=== PATIENT | female | born 1935 | race Caucasian/White ===

== ENCOUNTER 2017-03-03 14:15 | Inpatient (IN) | payer OTHER ==
[~2017-03-03] VITALS: Ht 152.4 cm; Wt 60.6 kg
[~2017-03-03 14:15] MED LIST: ALBU1AER9 INH; ASPCH81 PO; BUPR100T8 PO; CHOL100010 PO; DOUNEB INH; HYDC25 PO; LISI20TA3 PO; PANT40TA PO; SIMV20TA2 PO
[2017-03-03] MEDS ORDERED: SODIUM CHLORIDE 0.9% 500ML 500 ML IV STA (15:04)
[2017-03-03] MEDS ORDERED: DILTIAZEM BOLUS / DRIP IV STA ×2 (15:06→18:04)
[2017-03-03] MEDS ORDERED: DILTIAZEM HCL INJ 125 MG in DEXTROSE 5% 100ML IV PRN (15:15)
[2017-03-03] MEDS ORDERED: DILTIAZEM HCL 5 MG/ML 5 ML VIAL IV ONE (15:15)
--- NOTE | 2017-03-03 15:21 | DIAGNOSTIC IMAGING REPORT ---
CHEST ONE VIEW PORTABLE CLINICAL HISTORY: Chest Pain dyspnea COMPARISON STUDY: 01/19/2011 FINDINGS: Findings of congestive heart failure radiographically. Small bilateral pleural effusions. Moderate cardiomegaly. Pulmonary vasculature is increased IMPRESSION: Congestive heart failure. Small bilateral pleural effusions. The above report was generated using voice recognition software. It may contain grammatical, syntax or spelling errors. Electronically signed by: Herminio Rizvi M.D. 03/03/2017 3:20 PM Dictated Date/Time: 03/03/2017 3:19 PM
[2017-03-03 15:22] LABS: BASO % 0.9 %; COMPLETE YES; EOS % 1.8 %; HEMATOCRIT 51.9 % (37-47); IG% 0.6 %; LYMPH % 35.5 %; LYMPH ABS # 4.07 K/uL (1.2-3.4); MEAN CELL VOLUME 95.6 fL (80-100); MEAN CORPUSCULAR HEMOGLOBIN 32.4 pg (25-34); MEAN CORPUSCULAR HGB CONC 33.9 g/dl (32-36); MEAN PLATELET VOLUME 10.4 fL (7.4-10.4); MONO % 8.5 %; NEUT % 52.7 %; PLATELET COUNT 182 K/uL (130-400); RED BLOOD COUNT 5.43 M/uL (4.2-5.4); WHITE BLOOD COUNT 11.47 K/uL (4.8-10.8)
[2017-03-03 15:29] LABS: INR 1.1 (0.9-1.1); PROTHROMBIN TIME (PATIENT) 11.7 SECONDS (9.0-12.0)
[2017-03-03 15:34] LABS: BLOOD UREA NITROGEN 20 mg/dl (7-18); BUN/CREATININE RATIO 18.4 (10-20); CALCIUM 9.7 mg/dl (8.5-10.1); CARBON DIOXIDE 28 mmol/L (21-32); CHLORIDE 103 mmol/L (98-107); GLUCOSE 132 mg/dl (70-99); POTASSIUM 4.4 mmol/L (3.5-5.1); SODIUM 138 mmol/L (136-145)
[2017-03-03 15:45] LABS: CKMB/CK RATIO 3.3 (0-3.0)
[2017-03-03] MEDS ORDERED: ASPIRIN 81 MG CHEW PO STA ×2 (16:42→16:54)
[2017-03-03] MEDS ORDERED: ALBUT/IPRATROP 3MG/0.5MG NEB 3 ML VIAL INH STA (16:53)
[2017-03-03] MEDS ORDERED: ALBUTEROL 0.083% NEBU SOLN 3 ML VIAL INH STA (17:00)
[2017-03-03] MEDS ORDERED: LORAZEPAM 2 MG/ML 1 ML VIAL ONE (17:11)
[2017-03-03 17:20] VITALS: PULSE 146; O2SAT 93
--- NOTE | 2017-03-03 17:25 | DIAGNOSTIC IMAGING REPORT ---
CHEST ONE VIEW PORTABLE CLINICAL HISTORY: Shortness of breath. Respiratory distress COMPARISON STUDY: 03/03/2017 FINDINGS: The heart remains enlarged. There is worsening congestive failure and interstitial edema. There are small bilateral pleural effusions. There are persistent right basilar airspace opacities, likely representing compressive atelectasis or focal edema.[ IMPRESSION: Slight worsening of the congestive failure and interstitial pulmonary edema. Small bilateral pleural effusions Electronically signed by: Presley Dhaliwal M.D. 03/03/2017 5:24 PM Dictated Date/Time: 03/03/2017 5:23 PM
[2017-03-03] MEDS ORDERED: OPTIRAY 320 IV PRN (17:45)
[2017-03-03] MEDS ORDERED: FUROSEMIDE 40 MG/4 ML VIAL IV STA (17:45)
--- NOTE | 2017-03-03 17:53 | DIAGNOSTIC IMAGING REPORT ---
CT ANGIOGRAPHY OF THE CHEST, PULMONARY EMBOLUS PROTOCOL CLINICAL HISTORY: Shortness of breath. Atrial fibrillation. COMPARISON STUDY: Chest radiograph March 03, 2017 and January 21, 2011. TECHNIQUE: Following IV administration of 102 mL of Optiray-320, helical axial images of the chest were obtained utilizing the pulmonary embolus protocol. Maximal intensity projections and sagittal and coronal reformats were viewed on an independent 3D workstation. IV contrast was administered without complication. A dose lowering technique was utilized adhering to the principles of ALARA. CT DOSE: 506.01 mGy.cm FINDINGS: No pulmonary emboli are identified although the segmental and subsegmental pulmonary arteries are suboptimally assessed due to respiratory motion. The heart is mildly enlarged. There is no pericardial effusion. No enlarged thoracic lymph nodes are present. Small right and trace left pleural effusions are present. Interlobular septal thickening represents pulmonary edema. There are scattered groundglass opacities which may reflect pulmonary edema as well. Lower lobe opacities favor atelectasis. There is no pneumothorax. Bony thorax and upper abdomen are unremarkable on this unenhanced exam. There is an old proximal left humeral fracture. IMPRESSION: 1. No pulmonary emboli identified although segmental and subsegmental pulmonary arteries suboptimally assessed due to respiratory motion. 2. Moderate pulmonary edema. Small right and trace left pleural effusions. 3. Lower lobe opacities suggestive of atelectasis. Right lower lobe pneumonia would be difficult to exclude but is considered less likely. 4. Mild cardiomegaly. Electronically signed by: Gregg Polo M.D. 03/03/2017 5:51 PM Dictated Date/Time: 03/03/2017 5:43 PM
[2017-03-03] MEDS ORDERED: NITROGLYCERIN OINT 2% 1GM PACKET EXT SCH (18:00)
[2017-03-03] MEDS ORDERED: ONDANSETRON INJ 2 MG/ML 2 ML VIAL IV PRN (18:15)
[2017-03-03] MEDS ORDERED: LEVALBUTEROL/IPRATROPIUM NEB INH PRN (18:15)
[2017-03-03] MEDS ORDERED: NITROGLYCERIN 0.4 MG SL PER TAB CHARGE SL PRN (18:15)
[2017-03-03] MEDS ORDERED: ALUMINUM/MAGNESIUM/SIMETH (MAALOX MAX) 30 ML UDC PO PRN (18:15)
[2017-03-03] MEDS ORDERED: ACETAMINOPHEN 325 MG TAB PO PRN (18:15)
[2017-03-03] MEDS ORDERED: MAGNESIUM HYDROXIDE SUSP 30 ML UDC PO PRN (18:15)
[2017-03-03] MEDS ORDERED: IPRATROPIUM BROMIDE NEB SOLN 0.02% 2.5 ML VIAL INH PRN (18:30)
[2017-03-03] MEDS ORDERED: LEVALBUTEROL 0.63MG/3 ML NEB INH PRN (18:30)
[2017-03-03] MEDS ORDERED: HEPARIN IV LOW DOSE NO BOLUS SCH (18:34)
[2017-03-03] MEDS ORDERED: ASPI-435 PO (18:35)
--- NOTE | 2017-03-03 18:47 | EMERGENCY ROOM VISIT NOTE ---
History Report prepared by Lacey: Daniella Knight Under the Supervision of: Dr. Marcelino Negro D.O. First contact with patient: 14:50 Chief Complaint: CARDIAC ASSESSMENT Stated Complaint: A-FIB Nursing Triage Summary: pt reports for the past couple nights she has been SOB, she has been getting up and standing in front of the fan to make herself feel better she reports today she was at her PCP and was found to be in an abnormal rhythm her PCP sent her to be seen in the ER History of Present Illness The patient is a 81 year old female who presents to the Emergency Room for a cardiac assessment. The patient states that she has been experiencing increasing shortness of breath for the past 2 days. Her symptoms are worse in the morning when she wakes up, or if she gets up in the middle of the night to go to the bathroom. Once she gets up in the morning, she stands in front of her air conditioner and eventually starts to feel better. The patient states that her shortness of breath is worsened with exertion. Pt denies headache, change in vision, fevers, chest pain, nausea, vomiting, diarrhea, pain with urination, and melena. She denies any personal history of blood clots. She takes aspirin and denies any other blood thinners. Source of History: patient Onset: 2 days Position: chest (respiratory) Quality: other (shortness of breath) Timing: intermittent Modifying Factors (Worsening): exertion Modifying Factors (Relieving): other (standing in front of AC) Associated Symptoms: No fevers, No headache, No chest pain, No nausea, No vomiting, No melena, No diarrhea, No urinary symptoms Review of Systems See HPI for pertinent positives & negatives. A total of 10 systems reviewed and were otherwise negative. Past Medical & Surgical Medical Problems: (1) Acute respiratory failure (2) CHF (congestive heart failure) (3) Depression Family History Non-pertinent due to advanced age. Social History Smoking Status: Current Every Day Smoker Marital Status: Housing Status: lives alone Occupation Status: retired Current/Historical Medications Scheduled Aspirin (Aspirin 81), 81 MG PO DAILY Allergies Coded Allergies: No Known Allergies (Unverified , 03/03/17) Physical Exam Vital Signs Date Time Temp Pulse Resp B/P (MAP) Pulse Ox O2 Delivery O2 Flow Rate FiO2 03/03/17 17:55 128 16 104/83 95 03/03/17 17:20 146 30 93 BiPAP 60 03/03/17 17:20 146 93 60 03/03/17 16:05 132 16 122/94 93 Nasal Cannula 2.0 03/03/17 15:25 93 Nasal Cannula 2.0 03/03/17 15:25 89 Room Air 03/03/17 15:23 119 18 118/77 89 Room Air 03/03/17 15:23 136 03/03/17 14:35 36.7 146 18 139/103 94 Room Air 03/03/17 14:35 96 Room Air Physical Exam GENERAL: alert, sitting up in bed, ill appearing, talking in full sentences EYE EXAM: normal conjunctiva OROPHARYNX: no exudate, no erythema, lips, buccal mucosa, and tongue normal and mucous membranes are moist NECK: supple, no nuchal rigidity, no adenopathy, non-tender LUNGS: Clear to auscultation. Normal chest wall mechanics HEART: Tachycardic and irregularly irregular, no murmurs, S1 normal and S2 normal ABDOMEN: abdomen soft, non-tender, normo-active bowel sounds, no masses, no rebound or guarding. BACK: Back is symmetrical on inspection and there is no deformity, no midline tenderness, no CVA tenderness. SKIN: no rashes and no bruising UPPER EXTREMITIES: upper extremities are grossly normal. LOWER EXTREMITIES: Faint pitting edema. NEURO EXAM: Normal sensorium, cranial nerves II-XII grossly intact, normal speech, no gross weakness of arms, no gross weakness of legs. Medical Decision & Procedures ER Provider Diagnostic Interpretation: Prehospital ECG: A-fib with RVR at 132, left axis deviation, septal and inferior Q-waves. Repeat ECG: A-fib with RVR at 108, left axis deviation, LBBB. Repeat ECG: A-fib with RVR at 134, right axis deviation, RBBB. Bedside US: No pericardial effusion. No respiratory change in the IVC, no dilation of the RV. Radiology results as stated below per my review and the radiologist's interpretation: CHEST ONE VIEW PORTABLE CLINICAL HISTORY: Chest Pain dyspnea COMPARISON STUDY: 01/19/2011 FINDINGS: Findings of congestive heart failure radiographically. Small bilateral pleural effusions. Moderate cardiomegaly. Pulmonary vasculature is increased IMPRESSION: Congestive heart failure. Small bilateral pleural effusions. The above report was generated using voice recognition software. It may contain grammatical, syntax or spelling errors. Electronically signed by: Herminio Rizvi M.D. 03/03/2017 3:20 PM Dictated Date/Time: 03/03/2017 3:[address] ANGIOGRAPHY OF THE CHEST, PULMONARY EMBOLUS PROTOCOL CLINICAL HISTORY: Shortness of breath. Atrial fibrillation. COMPARISON STUDY: Chest radiograph March 03, 2017 and January 21, 2011. TECHNIQUE: Following IV administration of 102 mL of Optiray-320, helical axial images of the chest were obtained utilizing the pulmonary embolus protocol. Maximal intensity projections and sagittal and coronal reformats were viewed on an independent 3D workstation. IV contrast was administered without complication. A dose lowering technique was utilized adhering to the principles of ALARA. CT DOSE: 506.01 mGy.cm FINDINGS: No pulmonary emboli are identified although the segmental and subsegmental pulmonary arteries are suboptimally assessed due to respiratory motion. The heart is mildly enlarged. There is no pericardial effusion. No enlarged thoracic lymph nodes are present. Small right and trace left pleural effusions are present. Interlobular septal thickening represents pulmonary edema. There are scattered groundglass opacities which may reflect pulmonary edema as well. Lower lobe opacities favor atelectasis. There is no pneumothorax. Bony thorax and upper abdomen are unremarkable on this unenhanced exam. There is an old proximal left humeral fracture. IMPRESSION: 1. No pulmonary emboli identified although segmental and subsegmental pulmonary arteries suboptimally assessed due to respiratory motion. 2. Moderate pulmonary edema. Small right and trace left pleural effusions. 3. Lower lobe opacities suggestive of atelectasis. Right lower lobe pneumonia would be difficult to exclude but is considered less likely. 4. Mild cardiomegaly. Electronically signed by: Gregg Polo M.D. 03/03/2017 5:51 PM Dictated Date/Time: 03/03/2017 5:43 PM CHEST ONE VIEW PORTABLE CLINICAL HISTORY: Shortness of breath. Respiratory distress COMPARISON STUDY: 03/03/2017 FINDINGS: The heart remains enlarged. There is worsening congestive failure and interstitial edema. There are small bilateral pleural effusions. There are persistent right basilar airspace opacities, likely representing compressive atelectasis or focal edema.[ IMPRESSION: Slight worsening of the congestive failure and interstitial pulmonary edema. Small bilateral pleural effusions Electronically signed by: Presley Dhaliwal M.D. 03/03/2017 5:24 PM Dictated Date/Time: 03/03/2017 5:23 PM Laboratory Results 03/03/17 14:37 Red Blood Count 5.43, Mean Corpuscular Volume 95.6, Mean Corpuscular Hemoglobin 32.4, Mean Corpuscular Hemoglobin Concent 33.9, Mean Platelet Volume 10.4, Neutrophils (%) (Auto) 52.7, Lymphocytes (%) (Auto) 35.5, Monocytes (%) (Auto) 8.5, Eosinophils (%) (Auto) 1.8, Basophils (%) (Auto) 0.9, Neutrophils # (Auto) 6.04, Lymphocytes # (Auto) 4.07, Monocytes # (Auto) 0.98, Eosinophils # (Auto) 0.21, Basophils # (Auto) 0.10 03/03/17 14:37 Test 03/03/17 14:37 03/03/17 15:04 03/03/17 18:04 White Blood Count 11.47 K/uL (4.8-10.8) Red Blood Count 5.43 M/uL (4.2-5.4) Hemoglobin 17.6 g/dL (12.0-16.0) Hematocrit 51.9 % (37-47) Mean Corpuscular Volume 95.6 fL (80-100) Mean Corpuscular Hemoglobin 32.4 pg (25-34) Mean Corpuscular Hemoglobin Concent 33.9 g/dl (32-36) Platelet Count 182 K/uL (130-400) Mean Platelet Volume 10.4 fL (7.4-10.4) Neutrophils (%) (Auto) 52.7 % Lymphocytes (%) (Auto) 35.5 % Monocytes (%) (Auto) 8.5 % Eosinophils (%) (Auto) 1.8 % Basophils (%) (Auto) 0.9 % Neutrophils # (Auto) 6.04 K/uL (1.4-6.5) Lymphocytes # (Auto) 4.07 K/uL (1.2-3.4) Monocytes # (Auto) 0.98 K/uL (0.11-0.59) Eosinophils # (Auto) 0.21 K/uL (0-0.5) Basophils # (Auto) 0.10 K/uL (0-0.2) RDW Standard Deviation 49.1 fL (36.4-46.3) RDW Coefficient of Variation 14.0 % (11.5-14.5) Immature Granulocyte % (Auto) 0.6 % Immature Granulocyte # (Auto) 0.07 K/uL (0.00-0.02) Prothrombin Time 11.7 SECONDS (9.0-12.0) Prothromb Time International Ratio 1.1 (0.9-1.1) Anion Gap 7.0 mmol/L (3-11) Estimated GFR () 55.3 Estimated GFR (Non- 47.7 BUN/Creatinine Ratio 18.4 (10-20) Calcium Level 9.7 mg/dl (8.5-10.1) Total Creatine Kinase 72 U/L (26-192) Creatine Kinase MB 2.4 ng/ml (0.5-3.6) Troponin I < 0.015 ng/ml (0-0.045) Thyroid Stimulating Hormone (TSH) 3.350 uIu/ml (0.300-4.500) Creatine Kinase MB Ratio (0-3.0) Laboratory results per my review. Medications Administered Medications (Trade) Dose Ordered Sig/Dilip Route Start Time Stop Time Status Last Admin Dose Admin Sodium Chloride 500 ml @ 999 mls/hr Q31M STAT IV 03/03/17 15:04 03/03/17 15:34 DC 03/03/17 15:04 999 MLS/HR Diltiazem HCl (Cardizem Inj) 10 mg TODAY@1515 ONCE IV 03/03/17 15:15 03/03/17 15:16 DC 03/03/17 15:21 10 MG Diltiazem HCl 125 mg/Dextrose 125 ml @ 0 mls/hr Q0M PRN IV 03/03/17 15:15 03/03/17 20:00 03/03/17 15:30 5 MLS/HR Aspirin (Aspirin Chew) 324 mg NOW STAT PO 03/03/17 16:42 03/03/17 16:43 DC 03/03/17 16:42 324 MG Albuterol/ Ipratropium (Duoneb) 3 ml NOW STAT INH 03/03/17 16:53 03/03/17 16:54 DC 03/03/17 16:53 3 ML Albuterol Sulfate (Ventolin 0.083% 2.5MG/3ML Neb) 2.5 mg NOW STAT INH 03/03/17 17:00 03/03/17 17:01 DC 03/03/17 17:00 2.5 MG Lorazepam (Ativan Inj) 2 mg STK-MED ONCE .ROUTE 03/03/17 17:11 03/03/17 17:12 DC 03/03/17 17:11 1 MG Furosemide (Lasix Inj) 40 mg NOW STAT IV 03/03/17 17:45 03/03/17 17:46 DC 03/03/17 17:45 40 MG ECG Indication: SOB/dyspnea Rate (beats per minute): 132 Rhythm: atrial fibrillation (with RVR) Findings: LBBB, Q waves (septal and inferior), left axis deviation Comparison ECG Date: 01/20/2011 Change: The patient is now in a-fib. ED Course ED COURSE: Vital signs were reviewed and showed tachycardic and hypertensive. The patients medical record was reviewed The above diagnostic studies were performed and reviewed. ED treatments and interventions as stated above. 1450: The patient was evaluated in room C10. A complete history and physical examination was performed. 1504: NSS 500 ml @ 999 mls/hr IV 1508: The patient's heart rate has improved. 1515: Diltiazem HCl 125 mg/Dextrose IV, Cardizem 10 mg IV 1614: I spoke with Dr. Hong. We discussed the patient's case. The patient will be evaluated by the [facility] for further management. 1637: I reassessed the patient. She walked to the bathroom and developed mid- sternal chest pain and shortness of breath. She was given aspirin. 1642: Aspirin 324 mg PO 1653: Duoneb 3 ml INH 1657: I instructed nursing again at this time. I asked for her to increase the Cardizem drip, place her on the neb treatment, and give her aspirin and she went into another room. I called the charge nurse to obtain additional help. 1700: Albuterol sulfate 2.5 mg INH 1711: Ativan 2 mg IV 1711: I reassessed the patient and put her on BiPAP. Medicine is at the bedside. She is feeling slightly better on BiPAP. 1713: At this time I performed a bedside US. Bedside US: No pericardial effusion. No respiratory change in the IVC, no dilation of the RV. 1745: Lasix 40 mg IV 1750: I updated Dr. Hong on the patient's case. 175: Upon reevaluation, the patient is feeling better. I discussed my findings with the patient and she understands and agrees with the treatment plan. Based on the patients age, coexisting illnesses, exam and lab findings the decision to treat as an inpatient was made. The patient remained stable while under my care. The patient will be evaluated for further management. 1800: Nitroglycerin 1 inch EXT Medical Decision Differential diagnoses includes but is not limited to acute coronary syndrome, myocardial infarction, pericarditis, pulmonary embolus, aortic dissection, pneumonia, pneumothorax, musculoskeletal, shingles, esophageal. Patient is a 81-year-old female who presents the ER for shortness of breath with exertion which has been present since yesterday. 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 Upon presentation she is found to be in A. fib with RVR. CBC shows a hemoglobin of 17.6 and hematocrit of 51. BMP along with LFTs and troponin were negative. TSH is negative. And are was unremarkable. Chest x- ray supports failure. Patient was placed on a Cardizem drip and bolus. Heart rate trended down to 110s. Patient was much better until she got up to go to the bathroom. At this point she started to have chest pain and shortness of breath. Repeat EKG was obtained which showed a new axis with elevation in septal leads. This was again repeated as there was a complete axis changed and I did not trust it as it was rushed. The was unchanged from previous. Repeat chest x-ray was unchanged as well. She was given a small neb treatment with her history of COPD and poor air movement. She was placed on BiPAP. She was given aspirin as well. She was also given a small dose of Ativan as she became very anxious. Following CT PE she had complete resolution of all of her symptoms. CT PE shows pleural effusions with pulmonary edema. She was given Lasix. Initially ordered nitroglycerin but held as her blood pressure trended down to low 100s. She remained on BiPAP, Cardizem drip and was admitted to internal medicine with A. fib RVR likely causing CHF and shortness of breath. She was reevaluated on multiple occasions and patient and family were updated at bedside. Medication Reconcilliation Current Medication List: was personally reviewed by me Blood Pressure Screening Patient's blood pressure: Elevated blood pressure Consults Time Called: 161 Consulting Physician: Dr. Hong Returned Call: [address] Hong. We discussed the patient's case. [facility]. Impression Primary Impression: Atrial fibrillation with rapid ventricular response Additional Impressions: CHF (congestive heart failure) Acute respiratory failure Critical Care I have personally spent 125 minutes of critical care time in the direct management of this patient. This includes bedside care, interpretation of diagnostic studies, and testing, discussion with consultants, patient, and family members, and other required patient management activities. This 125 minutes is in excess of all separately billable procedures. Scribe Attestation The scribe's documentation has been prepared under my direction and personally reviewed by me in its entirety. I confirm that the note above accurately reflects all work, treatment, procedures, and medical decision making performed by me. Departure Information Dispostion Being Evaluated By Hospitalist Patient Instructions [facility] Problem Qualifiers Additional Impressions: CHF (congestive heart failure) Congestive heart failure type: unspecified congestive heart failure type Congestive heart failure chronicity: unspecified congestive heart failure chronicity Qualified Codes: I50.9 - Heart failure, unspecified Acute respiratory failure Respiratory failure complication: unspecified whether with hypoxia or hypercapnia Qualified Codes: J96.00 - Acute respiratory failure, unspecified whether with hypoxia or hypercapnia
[2017-03-03] MEDS ORDERED: FUROSEMIDE INJ 40 MG in SYRINGE 0 ML IV SCH (21:00)
[2017-03-03] MEDS: LEVALBUTEROL 1.25MG/0.5ML NEB INH SCH (21:00)
[2017-03-03] MEDS: IPRATROPIUM BROMIDE NEB SOLN 0.02% 2.5 ML VIAL INH SCH (21:00)
[2017-03-03] MEDS ORDERED: LEVALBUTEROL/IPRATROPIUM NEB INH SCH (21:00)
[2017-03-03 21:02] LABS: ARTERIAL BLD GAS O2 SATURATION 98.3 % (90-95); ARTERIAL BLOOD GAS BASE EXCESS -1.6 mEq/L (-9-1.8); ARTERIAL BLOOD GAS HCO3 24 mmol/L (19-24); ARTERIAL BLOOD GAS PO2 117 mm/Hg (80-95); ARTERIAL BLOOD GAS pH 7.36 (7.35-7.45)
[2017-03-03 21:03] LABS: ALLEN TEST POS (POS); O2 ADMINISTRATION 60%FI
[2017-03-03] MEDS ORDERED: HEPARIN 25000 UNIT/500 ML D5W ONE (21:10)
[2017-03-03] MEDS ORDERED: FUROSEMIDE INJ 20 MG in SYRINGE 0 ML IV SCH (22:30)
[2017-03-03] MEDS ORDERED: HEPARIN 25000 UNIT/ D5W 500 ML (PHARMACY PREPARED) IV PRN ×2 (22:30)
[2017-03-03 23:48] VITALS: BP 131/95; PULSE 104; TEMP 36.6; O2SAT 93; Ht 152.4 cm; Wt 60.6 kg
[2017-03-04] VITALS (9 sets, daily range): BP systolic 82–113; BP diastolic 41–72; PULSE 53–118; TEMP 36.3–36.7; O2SAT 94–97
[2017-03-04] MEDS: DILTIAZEM HCL INJ 125 MG in DEXTROSE 5% 100ML 100 ML IV SCH ×2 (00:13→09:36)
[2017-03-04] MEDS: NITROGLYCERIN OINT 2% 1GM PACKET EXT SCH ×2 (00:19→06:25)
[2017-03-04] MEDS: METHYLPREDNISOLONE IV 40 MG in SYRINGE 0 ML IV SCH ×2 (00:19→08:34)
[2017-03-04] MEDS: LEVOFLOXACIN / D5W 750 MG in PREMIXED IN D5W 150 ML IV SCH ×2 (00:19→22:57)
[2017-03-04] MEDS: LEVALBUTEROL 1.25MG/0.5ML NEB INH SCH ×2 (02:36→06:55)
[2017-03-04] MEDS: IPRATROPIUM BROMIDE NEB SOLN 0.02% 2.5 ML VIAL INH SCH ×2 (02:36→06:55)
[2017-03-04 02:46] LABS: CKMB/CK RATIO 4.2 (0-3.0)
[2017-03-04 04:21] LABS: BASO % 0.3 %; BASO ABS # 0.03 K/uL (0-0.2); COMPLETE YES; EOS % 0.3 %; IG% 0.9 %; LYMPH % 11.7 %; LYMPH ABS # 1.02 K/uL (1.2-3.4); MEAN CELL VOLUME 94.6 fL (80-100); MEAN CORPUSCULAR HEMOGLOBIN 31.5 pg (25-34); MEAN CORPUSCULAR HGB CONC 33.3 g/dl (32-36); MEAN PLATELET VOLUME 9.4 fL (7.4-10.4); MONO % 2.9 %; NEUT % 83.9 %; PLATELET COUNT 147 K/uL (130-400); RED BLOOD COUNT 5.18 M/uL (4.2-5.4); WHITE BLOOD COUNT 8.71 K/uL (4.8-10.8)
[2017-03-04 04:34] LABS: PARTIAL THROMBOPLASTIN RATIO 1.3
[2017-03-04 04:38] LABS: BUN/CREATININE RATIO 15.8 (10-20); CALCIUM 8.9 mg/dl (8.5-10.1); CREATININE 0.9 mg/dl (0.60-1.20); MAGNESIUM 1.7 mg/dl (1.8-2.4); POTASSIUM 3.8 mmol/L (3.5-5.1)
[2017-03-04 04:41] LABS: CHOLESTEROL/HDL RATIO 2.6
[2017-03-04] MEDS ORDERED: HEPARIN IV BOLUS 4,000 UNIT in SYRINGE 0 ML IV ONE (05:00)
[2017-03-04] MEDS ORDERED: MAGNESIUM SULFATE 1GM / D5W 1 GM in PREMIXED IN D5W 100 ML IV ONE (08:15)
[2017-03-04] MEDS: FUROSEMIDE INJ 40 MG in SYRINGE 0 ML IV SCH ×2 (08:34→17:09)
[2017-03-04] MEDS: ASPIRIN 81 MG ECTAB PO SCH (09:00)
--- NOTE | 2017-03-04 09:13 | HISTORY & PHYSICAL EXAMINATION ---
DATE OF ADMISSION: 03/03/2017 CHIEF COMPLAINT: Shortness of breath. HISTORY OF PRESENT ILLNESS: This is a 81-year-old female with past medical history significant for depression, osteoporosis, osteoarthrosis, history of nonobstructive CAD, hyperlipidemia, coronary artery disease, CKD stage III, tobacco abuse, hypertension but currently medication nino taking only aspirin and lives alone and ADLs came here because of shortness of breath and found in rapid a fib. The patient says since last 2 weeks she getting short of breath and last 2 days becomes worse and some cough, no fever, no chest pain. In the nighttime, she is waking up with choking like feeling from shortness of breath and feeling of heart palpitations.Denies any fever, chills, no nausea, no vomiting, no headaches, no blurred vision, no dizziness, no abdominal pain. Normal bowel and bladder movements. Appetite is okay. In the ER, the patient went to the bathroom and suddenly became short of breath. She complained of not able to breathe, and she was placed on 100% nonrebreather mask and she was in rapid atrial fibrillation. She was taken to CAT scan that showed no PE, but showed bilateral pulmonary edema and she was placed on BiPAP. Currently heart rates are good. Controlled on Cardizem drip and oxygen saturations were fine on BiPAP and she seems to be feeling better. ALLERGIES: No known drug allergies. PAST MEDICAL HISTORY: As mentioned above. PAST SURGICAL HISTORY: Partial hysterectomy and tonsillectomy. MEDICATIONS: Currently taking aspirin 81 mg p.o. daily. FAMILY HISTORY: Significant for mother has heart disorder, hypertension and stroke. SOCIAL HISTORY: , smokes 1 pack a day for several years. No alcohol use. No drug use. REVIEW OF SYMPTOMS: As per HPI. Rest of review of systems negative. PHYSICAL EXAMINATION: GENERAL: The patient is old and frail, in respiratory distress. VITAL SIGNS: Temperature 36.7, pulse 130s, respiratory 16-18, blood pressure 122/94, oxygen currently 95% on BiPAP. HEAD, EYES, EARS, NOSE, AND THROAT: No pallor, no icterus. Pupils equal, round, and reactive to light. NECK: No JVD, no neck masses. No carotid bruits. CARDIOVASCULAR: S1, S2 heard. Tachycardia. Regular rhythm. No murmurs. RESPIRATORY SYSTEM: Initially resp distress with rapid breathing but currently on BiPAP. Breathing okay. Bilateral rhonchi with mild wheezing present. ABDOMEN: Soft, bowel sounds present. Nontender. No distention. CENTRAL NERVOUS SYSTEM: Cranial nerves II-XII grossly intact. Nonfocal. EXTREMITIES: Mild trace pedal edema, no erythema seen. LABORATORY DATA: Sodium 138, potassium 4.4, chloride 103, bicarbonate 28, BUN 20, creatinine 1.1, serum glucose 132, calcium 9.7, total creatine kinase 72. Troponin I less than 0.015. TSH 3.3, WBC 11.4, hemoglobin 7.6, hematocrit 20.9, platelets 182. PT 11.7, INR 1.1. Chest x-ray shows congestive heart failure, small bilateral pleural effusions. CT of the chest shows no PE, moderate pulmonary edema. Small right and trace left pleural effusions, right larger lobe pneumonia could be difficult to exclude, but comes less likely. Mild cardiomegaly. EKG: Shows rapid AFib with a rate of 150s, left bundle branch block seen. ASSESSMENT AND PLAN: This is a 81-year-old female who presents with acute respiratory failure and rapid atrial fibrillation. 1. Acute respiratory failure secondary to congestive heart failure from rapid atrial fibrillation and chronic obstructive pulmonary disease exacerbation. Currently doing okay on BiPAP. 2. Acute congestive heart failure. Previous echo 2012 showed grade 1 diastolic. CHF possibly from rapid atrial fibrillation. Dose of Lasix in the ER. We will continue IV Lasix 40 b.i.d. I's and O's. nitro paste. Follow echocardiogram. Cardiology consult. 3. Rapid atrial fibrillation. The patient has heart rate 150s. Currently on Cardizem drip. Will continue the Cardizem drip for now on IV heparin. Follow echocardiogram. beta chica as per cardiology. Cardiology did not start on beta chica secondary to her conduction system and respiratory disease in the past. 4. Chronic obstructive pulmonary disease exacerbation. The patient smokes everyday for several years. Bilateral rhonchi on exam. We will place on IV Solu-Medrol, IV Levaquin, nebs around the clock and p.r.n. Tobacco cessation. 5. History of nonobstructive coronary artery disease. The patient is taking only aspirin, not on any other medications. Further recommendation as per cardiology. Currently on IV heparin. 6. Chronic kidney disease stage III. We will follow renal function. 7. Hyperlipidemia, not on any medications. Follow the lipid profile. 8. History of hypertension. The patient currently is on Cardizem drip and nitro paste. We will follow the blood pressure in the hospital. 9. Deep vein thrombosis prophylaxis IV heparin. 10. Disposition. Monitor on tele floor. Expect to discharge home and follow with family doctor and cardiology. CODE STATUS LEVEL 1 FULL CODE. MTDD
--- NOTE | 2017-03-04 09:55 | Progress Note ---
Subjective Date of Service: Mar 04, 2017. Subjective Pt evaluation today including: conversation w/ patient, physical exam, lab review, review of studies, review of inpatient medication list Saw/examined the patient in room 234 she states she was at her PCP (GALEN Ruiz) - was short of breath and tachycardic in the office, found to have A. Fib with RVR and was sent over to the hospital Found to have new onset rapid A. Fib in the ER - was really short of breath and given Lasix, solu-medrol, placed on bipap This morning: now she is on 2L O2 via NC still has shortness of breath denies chest pain or palpitations States she stopped taking all medications about 8 months ago due to cost. Problem List Medical Problems: (1) Atrial fibrillation with rapid ventricular response Status: Acute Review of Systems Constitutional: No fever, No chills, No weakness Respiratory: + shortness of breath, + dyspnea on exertion, No cough, No sputum , No wheezing, No dyspnea at rest, No hemoptysis Cardiac: + orthopnea, No chest pain, No edema, No palpitations Abdomen: No pain, No nausea, No vomiting, No diarrhea Musculoskeletal: No joint pain Female : No dysuria, No urinary frequency Heme: No abnormal bleeding/bruising Medications Current Inpatient Medications Medications (Trade) Dose Ordered Sig/Dilip Route Start Time Stop Time Status Last Admin Dose Admin Ioversol (Optiray 320) 100 ml UD PRN IV 03/03/17 17:45 03/07/17 17:44 Acetaminophen (Tylenol Tab) 650 mg Q4H PRN PO 03/03/17 18:15 04/02/17 18:14 Al Hydrox/Mg Hydrox/Simethicone (Maalox Max Susp) 15 ml Q4H PRN PO 03/03/17 18:15 04/02/17 18:14 Magnesium Hydroxide (Milk Of Magnesia Susp) 30 ml Q12H PRN PO 03/03/17 18:15 04/02/17 18:14 Ondansetron HCl (Zofran Inj) 4 mg Q6H PRN IV 03/03/17 18:15 04/02/17 18:14 Nitroglycerin (Nitrostat Tab) 0.4 mg UD PRN SL 03/03/17 18:15 04/02/17 18:14 Aspirin (Ecotrin Tab) 81 mg QAM PO 03/04/17 09:00 04/03/17 08:59 03/04/17 09:00 81 MG Methylprednisolone Sodium Succinate 40 mg/Syringe 0.64 ml @ 1.5 mls/min Q8H IV 03/04/17 00:00 04/03/17 00:00 03/04/17 08:34 1.5 MLS/MIN Nitroglycerin (Nitroglycerin 2% Oint) 0.5 inch Q6 EXT 03/04/17 00:00 04/03/17 00:00 03/04/17 06:25 0.5 INCH Levofloxacin 750 mg/Prmx 150 ml @ 100 mls/hr DAILY@2200 IV 03/03/17 22:30 03/10/17 21:59 03/04/17 00:19 100 MLS/HR Ipratropium [place] (Atrovent 0.02% 0.5MG/2.5ML Neb) 0.5 mg Q2H PRN INH 03/03/17 18:30 04/02/17 18:29 Levalbuterol (Xopenex 0.63 Mg/ 3 Ml Neb) 0.63 mg Q2H PRN INH 03/03/17 18:30 04/02/17 18:29 Ipratropium [place] (Atrovent 0.02% 0.5MG/2.5ML Neb) 0.5 mg Q6R INH 03/03/17 21:00 04/02/17 20:59 03/04/17 06:55 0.5 MG Levalbuterol (Xopenex 1.25MG/ 0.5ML Neb) 1.25 mg Q6R INH 03/03/17 21:00 04/02/17 20:59 03/04/17 06:55 1.25 MG Furosemide 40 mg/ Syringe 4 ml @ 4 mls/min BID17 IV 03/04/17 09:00 04/03/17 08:59 03/04/17 08:34 4 MLS/MIN Diltiazem HCl 125 mg/Dextrose 125 ml @ 0 mls/hr Q0M IV 03/03/17 21:15 04/02/17 21:14 03/04/17 09:36 15 MLS/HR Heparin Sodium (Porcine) 87913 unit/Dextrose 500 ml @ 16 mls/hr Q24H PRN IV 03/03/17 22:30 04/02/17 22:29 Objective Vital Signs Date Time Temp Pulse Resp B/P (MAP) Pulse Ox O2 Delivery O2 Flow Rate FiO2 03/04/17 07:21 36.7 96 18 103/67 (79) 96 Nasal Cannula 3.0 03/04/17 06:55 98 16 95 Nasal Cannula 3.0 03/04/17 04:14 36.5 118 20 113/72 (86) 96 Nasal Cannula 3.0 03/04/17 04:00 Nasal Cannula 3.0 03/04/17 02:36 89 16 95 Nasal Cannula 4.0 03/03/17 23:48 36.6 104 20 131/95 93 Nasal Cannula 4.0 03/03/17 23:26 109 20 98/67 96 Nasal Cannula 4.0 03/03/17 22:00 102 20 122/90 95 Nasal Cannula 4.0 03/03/17 20:30 98 20 109/65 97 BiPAP 03/03/17 19:30 108 20 106/85 98 BiPAP 03/03/17 17:55 128 16 104/83 95 03/03/17 17:20 146 30 93 BiPAP 60 03/03/17 17:20 146 93 60 03/03/17 16:05 132 16 122/94 93 Nasal Cannula 2.0 03/03/17 15:25 93 Nasal Cannula 2.0 03/03/17 15:25 89 Room Air 03/03/17 15:23 119 18 118/77 89 Room Air 03/03/17 15:23 136 03/03/17 14:35 36.7 146 18 139/103 94 Room Air 03/03/17 14:35 96 Room Air Physical Exam General Appearance: no apparent distress, + pertinent finding (mild confusion during exam) Respiratory/Chest: chest non-tender, lungs clear, normal breath sounds, no respiratory distress, no accessory muscle use Cardiovascular: + tachycardia, + irregularly irregular Abdomen: normal bowel sounds, non tender, soft Extremities: normal inspection, no pedal edema Neurologic/Psychiatric: no motor/sensory deficits, alert, normal mood/affect Laboratory Results Last 24 Hours Test 03/03/17 14:37 03/03/17 15:04 03/03/17 20:52 03/04/17 02:11 White Blood Count 11.47 K/uL Red Blood Count 5.43 M/uL Hemoglobin 17.6 g/dL Hematocrit 51.9 % Mean Corpuscular Volume 95.6 fL Mean Corpuscular Hemoglobin 32.4 pg Mean Corpuscular Hemoglobin Concent 33.9 g/dl Platelet Count 182 K/uL Mean Platelet Volume 10.4 fL Neutrophils (%) (Auto) 52.7 % Lymphocytes (%) (Auto) 35.5 % Monocytes (%) (Auto) 8.5 % Eosinophils (%) (Auto) 1.8 % Basophils (%) (Auto) 0.9 % Neutrophils # (Auto) 6.04 K/uL Lymphocytes # (Auto) 4.07 K/uL Monocytes # (Auto) 0.98 K/uL Eosinophils # (Auto) 0.21 K/uL Basophils # (Auto) 0.10 K/uL RDW Standard Deviation 49.1 fL RDW Coefficient of Variation 14.0 % Immature Granulocyte % (Auto) 0.6 % Immature Granulocyte # (Auto) 0.07 K/uL Prothrombin Time 11.7 SECONDS Prothromb Time International Ratio 1.1 Sodium Level 138 mmol/L Potassium Level 4.4 mmol/L Chloride Level 103 mmol/L Carbon Dioxide Level 28 mmol/L Anion Gap 7.0 mmol/L Blood Urea Nitrogen 20 mg/dl Creatinine 1.10 mg/dl Estimated GFR () 55.3 Estimated GFR (Non- 47.7 BUN/Creatinine Ratio 18.4 Random Glucose 132 mg/dl Calcium Level 9.7 mg/dl Total Creatine Kinase 72 U/L 59 U/L Creatine Kinase MB 2.4 ng/ml 2.5 ng/ml Creatine Kinase MB Ratio 3.3 4.2 Troponin I < 0.015 ng/ml 0.018 ng/ml Thyroid Stimulating Hormone (TSH) 3.350 uIu/ml Arterial Blood pH 7.36 Arterial Blood Partial Pressure CO2 44 mmHg Arterial Blood Partial Pressure O2 117 mm/Hg Arterial Blood HCO3 24 mmol/L Arterial Blood Oxygen Saturation 98.3 % Arterial Blood Base Excess -1.6 mEq/L Arterial Blood Gas Delivery 60%FI Mike Test POS Test 03/04/17 04:12 03/04/17 04:44 White Blood Count 8.71 K/uL Red Blood Count 5.18 M/uL Hemoglobin 16.3 g/dL Hematocrit 49.0 % Mean Corpuscular Volume 94.6 fL Mean Corpuscular Hemoglobin 31.5 pg Mean Corpuscular Hemoglobin Concent 33.3 g/dl Platelet Count 147 K/uL Mean Platelet Volume 9.4 fL Neutrophils (%) (Auto) 83.9 % Lymphocytes (%) (Auto) 11.7 % Monocytes (%) (Auto) 2.9 % Eosinophils (%) (Auto) 0.3 % Basophils (%) (Auto) 0.3 % Neutrophils # (Auto) 7.30 K/uL Lymphocytes # (Auto) 1.02 K/uL Monocytes # (Auto) 0.25 K/uL Eosinophils # (Auto) 0.03 K/uL Basophils # (Auto) 0.03 K/uL RDW Standard Deviation 47.8 fL RDW Coefficient of Variation 13.8 % Immature Granulocyte % (Auto) 0.9 % Immature Granulocyte # (Auto) 0.08 K/uL Activated Partial Thromboplast Time 34.1 SECONDS Partial Thromboplastin Ratio 1.3 Sodium Level 140 mmol/L Potassium Level 3.8 mmol/L Chloride Level 105 mmol/L Carbon Dioxide Level 27 mmol/L Anion Gap 8.0 mmol/L Blood Urea Nitrogen 14 mg/dl Creatinine 0.90 mg/dl Est Creatinine Clear Calc Drug Dose 41.4 ml/min Estimated GFR () 70.5 Estimated GFR (Non- 60.8 BUN/Creatinine Ratio 15.8 Random Glucose 127 mg/dl Calcium Level 8.9 mg/dl Magnesium Level 1.7 mg/dl Triglycerides Level 57 mg/dl Cholesterol Level 133 mg/dl HDL Cholesterol 51 mg/dl LDL Cholesterol, Calculated 71 mg/dl VLDL Cholesterol, Calculated 11 mg/dl Cholesterol/HDL Ratio 2.6 Assessment and Plan This is a 81 year old female who lives alone, possible underlying dementia, CKD stage 3, HTN, CAD, COPD, current ongoing tobacco use; stopped all medications about 8 months prior to arrival - sent to the ER by primary care due to shortness of breath and tachycardia, found to have new onset A. Fib New Onset A. Fib with RVR patient presents with new onset A. fib with rapid ventricular response started on IV heparin and IV Cardizem continues to have A. fib, rates are improving, though still elevated in the 100s -110s consulted cardiology echo pending currently max dose on Cardizem drip; should start b-chica, aspirin wean O2 as tolerated CM consulted for medication cost and pt. 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
[2017-03-04 11:22] LABS: CKMB/CK RATIO 3.6 (0-3.0)
[2017-03-04 12:50] LABS: PARTIAL THROMBOPLASTIN RATIO 2.5
--- NOTE | 2017-03-04 13:06 | ECHOCARDIOGRAM REPORT ---
*NOTICE TO RECEIVING [employer] This information is strictly Confidential and protected under [place] law. [place] law prohibits you from making any further disclosure of this information unless further disclosure is expressly permitted by the written consent of the person to whom it pertains or is authorized by law. A general authorization for the release of medical or other information is not sufficient for this purpose. Hospital accepts no responsibility if the information is made available to any other person, INCLUDING THE PATIENT. Interpretation Summary * Name: GALI TORRES Study Date: 03/04/2017 10:54 AM BP: 113/72 mmHg * Patient Location: C.2T\S\S234\S\1 HR: 118 * : 1935 (M/d/yyyy) Gender: Female Height: 60 in * Age: 81 yrs Ethnicity: [place] Weight: 161 lb * Ordering Physician: Maik Hong * Referring Physician: Екатерина Oakes * Performed By: Brittany Doherty RDCS * * Reason For Study: A-Fib * BSA: 1.7 m2 * -- Conclusions -- * The left ventricle is normal in size. * There is moderate concentric left ventricular hypertrophy. * Septal motion is consistent with conduction abnormality. * There is mild global hypokinesis of the left ventricle. * Ejection Fraction = 45-50%. * Borderline left atrial enlargement. * There is moderate mitral regurgitation. * There is mild tricuspid regurgitation. * Right ventricular systolic pressure is elevated at 30-40mmHg. Procedure Details * A complete two-dimensional transthoracic echocardiogram was performed (2D, M-mode, Doppler and color flow Doppler). Left Ventricle * The left ventricle is normal in size. * There is moderate concentric left ventricular hypertrophy. * Ejection Fraction = 45-50%. * Septal motion is consistent with conduction abnormality. * There is mild global hypokinesis of the left ventricle. Right Ventricle * The right ventricle is normal in size and function. Atria * Borderline left atrial enlargement. * Right atrial size is normal. * No ASD detected; PFO is not assessed. Mitral Valve * The mitral valve anatomy is normal. * There is no mitral valve stenosis. * There is moderate mitral regurgitation. Tricuspid Valve * The tricuspid valve is normal. * There is no tricuspid stenosis. * There is mild tricuspid regurgitation. * Right ventricular systolic pressure is elevated at 30-40mmHg. Aortic Valve * The aortic valve is trileaflet. * Aortic valve sclerosis mild, without significant aortic valvular stenosis. * No aortic regurgitation is present. Pulmonic Valve * The pulmonic valve is not well visualized. Great Vessels * The aortic root is normal size. Pericardium/Pleural * There is no pericardial effusion. Great Vessels * The inferior vena cava is moderately dilated. MMode 2D Measurements and Calculations IVSd 1.2 cm LVIDd 4.4 cm LVIDs 3.3 cm LVPWd 1.2 cm IVS/LVPW 1.1 FS 26.2 % EDV(Teich) 89.5 ml ESV(Teich) 43.3 ml EF(Teich) 51.6 % EDV(cubed) 87.4 ml ESV(cubed) 35.1 ml EF(cubed) 59.9 % LV mass(C)d 198.2 grams LV mass(C)dI 116.4 grams/m\S\2 SV(Teich) 46.2 ml SI(Teich) 27.1 ml/m\S\2 SV(cubed) 52.3 ml SI(cubed) 30.7 ml/m\S\2 Ao root diam 2.4 cm Ao root area 4.3 cm\S\2 ACS 1.9 cm LA dimension 3.7 cm LA/Ao 1.6 LVOT diam 2.0 cm LVOT area 3.0 cm\S\2 LVAd ap4 20.1 cm\S\2 LVLd ap4 7.0 cm EDV(MOD-sp4) 48.6 ml EDV(sp4-el) 49.1 ml LVAs ap4 13.7 cm\S\2 LVLs ap4 6.1 cm ESV(MOD-sp4) 25.9 ml ESV(sp4-el) 26.2 ml EF(MOD-sp4) 46.6 % EF(sp4-el) 46.8 % LVAd ap2 12.1 cm\S\2 LVLd ap2 4.9 cm EDV(MOD-sp2) 24.6 ml EDV(sp2-el) 25.5 ml LVAs ap2 8.5 cm\S\2 LVLs ap2 4.6 cm ESV(MOD-sp2) 13.2 ml ESV(sp2-el) 13.3 ml EF(MOD-sp2) 46.4 % EF(sp2-el) 47.6 % LVLd %diff -42.06 % EDV(MOD-bp) 41.6 ml LVLs %diff -33.01 % ESV(MOD-bp) 21.4 ml EF(MOD-bp) 48.6 % SV(MOD-sp4) 22.7 ml SI(MOD-sp4) 13.3 ml/m\S\2 SV(MOD-sp2) 11.4 ml SI(MOD-sp2) 6.7 ml/m\S\2 SV(MOD-bp) 20.2 ml SI(MOD-bp) 11.9 ml/m\S\2 SV(sp4-el) 23.0 ml SI(sp4-el) 13.5 ml/m\S\2 SV(sp2-el) 12.1 ml SI(sp2-el) 7.1 ml/m\S\2 Doppler Measurements and Calculations MV E max celsa 105.7 cm/sec MV dec time 0.19 sec Ao V2 max 104.9 cm/sec Ao max PG 4.4 mmHg Ao max PG (full) 2.2 mmHg MARIS(V,A) 2.1 cm\S\2 MARIS(V,D) 2.1 cm\S\2 LV V1 max PG 2.2 mmHg LV V1 max 74.5 cm/sec MR max celsa 408.1 cm/sec MR max PG 66.7 mmHg MR mean celsa 307.1 cm/sec MR mean PG 42.6 mmHg MR VTI 118.6 cm PA V2 max 61.1 cm/sec PA max PG 1.5 mmHg PA acc slope 675.6 cm/sec\S\2 PA acc time 0.07 sec TR max celsa 233.7 cm/sec PA pr(Accel) 47.8 mmHg
[2017-03-04] MEDS ORDERED: POTASSIUM CHLORIDE 20 MEQ TABCR PO STA (13:32)
[2017-03-04] MEDS ORDERED: METOPROLOL TARTRATE 25 MG TAB PO ONE (13:32)
[2017-03-04] MEDS ORDERED: METOPROLOL TARTRATE 25 MG TAB PO SCH (18:00)
[2017-03-05] VITALS (9 sets, daily range): BP systolic 121–142; BP diastolic 67–92; PULSE 48–90; TEMP 36.3–37; O2SAT 94–98
[2017-03-05 05:10] LABS: BASO % 0.1 %; BASO ABS # 0.01 K/uL (0-0.2); COMPLETE YES; HEMATOCRIT 46.1 % (37-47); IG% 0.4 %; LYMPH % 13.2 %; LYMPH ABS # 1.77 K/uL (1.2-3.4); MEAN CELL VOLUME 94.7 fL (80-100); MEAN CORPUSCULAR HEMOGLOBIN 31.4 pg (25-34); MEAN CORPUSCULAR HGB CONC 33.2 g/dl (32-36); MEAN PLATELET VOLUME 9.5 fL (7.4-10.4); NEUT % 78.3 %; PLATELET COUNT 150 K/uL (130-400); RED BLOOD COUNT 4.87 M/uL (4.2-5.4); WHITE BLOOD COUNT 13.42 K/uL (4.8-10.8)
[2017-03-05 05:23] LABS: PARTIAL THROMBOPLASTIN RATIO 1.9
[2017-03-05 05:43] LABS: BUN/CREATININE RATIO 17.2 (10-20); CALCIUM 8.9 mg/dl (8.5-10.1); CREATININE 1.6 mg/dl (0.60-1.20); POTASSIUM 4.5 mmol/L (3.5-5.1)
[2017-03-05] MEDS: ASPIRIN 81 MG ECTAB PO SCH (08:20)
--- NOTE | 2017-03-05 08:31 | Progress Note ---
Subjective Date of Service: Mar 05, 2017. Subjective Pt evaluation today including: conversation w/ patient, physical exam, lab review, review of studies, review of inpatient medication list Saw/examined the patient in room 234 She is seated in a chair, doing okay - denies chest pain, palpitations, shortness of breath Eager to go home Problem List Medical Problems: (1) Atrial fibrillation with rapid ventricular response Status: Acute Review of Systems Constitutional: No fever, No chills Respiratory: No cough, No sputum, No wheezing, No shortness of breath, No dyspnea on exertion, No dyspnea at rest, No hemoptysis Cardiac: No chest pain, No edema, No palpitations Abdomen: No pain, No nausea, No vomiting, No diarrhea Medications Current Inpatient Medications Medications (Trade) Dose Ordered Sig/Dilip Route Start Time Stop Time Status Last Admin Dose Admin Ioversol (Optiray 320) 100 ml UD PRN IV 03/03/17 17:45 03/07/17 17:44 Acetaminophen (Tylenol Tab) 650 mg Q4H PRN PO 03/03/17 18:15 04/02/17 18:14 Al Hydrox/Mg Hydrox/Simethicone (Maalox Max Susp) 15 ml Q4H PRN PO 03/03/17 18:15 04/02/17 18:14 Magnesium Hydroxide (Milk Of Magnesia Susp) 30 ml Q12H PRN PO 03/03/17 18:15 04/02/17 18:14 Ondansetron HCl (Zofran Inj) 4 mg Q6H PRN IV 03/03/17 18:15 04/02/17 18:14 Nitroglycerin (Nitrostat Tab) 0.4 mg UD PRN SL 03/03/17 18:15 04/02/17 18:14 Aspirin (Ecotrin Tab) 81 mg QAM PO 03/04/17 09:00 04/03/17 08:59 03/05/17 08:20 81 MG Levofloxacin 750 mg/Prmx 150 ml @ 100 mls/hr DAILY@2200 IV 03/03/17 22:30 03/10/17 21:59 03/04/17 22:57 100 MLS/HR Ipratropium [place] (Atrovent 0.02% 0.5MG/2.5ML Neb) 0.5 mg Q2H PRN INH 03/03/17 18:30 04/02/17 18:29 03/05/17 04:03 0.5 MG Levalbuterol (Xopenex 0.63 Mg/ 3 Ml Neb) 0.63 mg Q2H PRN INH 03/03/17 18:30 04/02/17 18:29 03/05/17 04:03 0.63 MG Furosemide 40 mg/ Syringe 4 ml @ 4 mls/min BID17 IV 03/04/17 09:00 04/03/17 08:59 Future Hold 03/04/17 17:09 4 MLS/MIN Heparin Sodium (Porcine) 16796 unit/Dextrose 500 ml @ 16 mls/hr Q24H PRN IV 03/03/17 22:30 04/02/17 22:29 03/05/17 08:09 16 MLS/HR Prednisone (PredniSONE TAB) 40 mg DAILY PO 03/05/17 09:00 04/04/17 08:59 03/05/17 08:20 40 MG Metoprolol Tartrate (Lopressor Tab) 25 mg BID17 PO 03/05/17 09:00 04/03/17 17:59 03/05/17 08:20 25 MG Objective Vital Signs Date Time Temp Pulse Resp B/P (MAP) Pulse Ox O2 Delivery O2 Flow Rate FiO2 03/05/17 07:36 36.8 90 18 134/87 (103) 96 03/05/17 04:03 72 20 96 Nasal Cannula 2.0 03/05/17 04:00 95 Nasal Cannula 2.0 60 03/05/17 03:52 36.7 72 20 142/75 (97) 95 Nasal Cannula 2.0 03/05/17 00:00 95 Nasal Cannula 2.0 60 03/04/17 23:48 36.4 62 18 105/62 (76) 94 Nasal Cannula 2.0 03/04/17 21:00 92/52 (65) 03/04/17 20:00 Nasal Cannula 2.0 03/04/17 19:31 36.4 53 20 82/41 (55) 96 Nasal Cannula 2.0 03/04/17 16:00 Nasal Cannula 2.0 03/04/17 15:50 36.6 71 18 102/61 (75) 94 Nasal Cannula 2.0 03/04/17 12:11 Nasal Cannula 3.0 03/04/17 11:35 36.3 85 18 102/57 (72) 97 Nasal Cannula 2.0 Physical Exam General Appearance: no apparent distress Respiratory/Chest: chest non-tender, no respiratory distress, no accessory muscle use, + decreased breath sounds Cardiovascular: no edema, no murmur, + irregularly irregular Extremities: non-tender, normal inspection, no pedal edema Neurologic/Psychiatric: no motor/sensory deficits, alert, normal mood/affect Laboratory Results Last 24 Hours Test 03/04/17 10:49 03/05/17 04:58 Activated Partial Thromboplast Time 64.3 SECONDS 50.2 SECONDS Partial Thromboplastin Ratio 2.5 1.9 Total Creatine Kinase 59 U/L Creatine Kinase MB 2.1 ng/ml Creatine Kinase MB Ratio 3.6 Troponin I < 0.015 ng/ml White Blood Count 13.42 K/uL Red Blood Count 4.87 M/uL Hemoglobin 15.3 g/dL Hematocrit 46.1 % Mean Corpuscular Volume 94.7 fL Mean Corpuscular Hemoglobin 31.4 pg Mean Corpuscular Hemoglobin Concent 33.2 g/dl Platelet Count 150 K/uL Mean Platelet Volume 9.5 fL Neutrophils (%) (Auto) 78.3 % Lymphocytes (%) (Auto) 13.2 % Monocytes (%) (Auto) 8.0 % Eosinophils (%) (Auto) 0.0 % Basophils (%) (Auto) 0.1 % Neutrophils # (Auto) 10.50 K/uL Lymphocytes # (Auto) 1.77 K/uL Monocytes # (Auto) 1.08 K/uL Eosinophils # (Auto) 0.00 K/uL Basophils # (Auto) 0.01 K/uL RDW Standard Deviation 48.4 fL RDW Coefficient of Variation 14.0 % Immature Granulocyte % (Auto) 0.4 % Immature Granulocyte # (Auto) 0.06 K/uL Sodium Level 134 mmol/L Potassium Level 4.5 mmol/L Chloride Level 100 mmol/L Carbon Dioxide Level 27 mmol/L Anion Gap 7.0 mmol/L Blood Urea Nitrogen 28 mg/dl Creatinine 1.60 mg/dl Est Creatinine Clear Calc Drug Dose 23.2 ml/min Estimated GFR () 35.2 Estimated GFR (Non- 30.3 BUN/Creatinine Ratio 17.2 Random Glucose 128 mg/dl Calcium Level 8.9 mg/dl Magnesium Level 2.0 mg/dl Assessment and Plan This is a 81 year old female who lives alone, possible underlying dementia, CKD stage 3, HTN, CAD, COPD, current ongoing tobacco use; stopped all medications about 8 months prior to arrival - sent to the ER by primary care due to shortness of breath and tachycardia, found to have new onset A. Fib New Onset A. Fib with RVR 03/05 A. fib - now rate controlled Cardizem drip is off Metoprolol Tartrate 25mg BID echo shows some hypokinesis with an EF of 40-45% start Coumadin 5mg daily for now 03/04 patient presents with new onset A. fib with rapid ventricular response started on IV heparin and IV Cardizem continues to have A. fib, rates are improving, though still elevated in the 100s -110s consulted cardiology echo pending currently max dose on Cardizem drip; should start b-chica, aspirin wean O2 as tolerated CM consulted for medication cost and pt. 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 nebs as needed 03/04 CTA chest negative for PE initially started on IV solu-medrol and nebs will stop IV solu-medrol; start prednisone taper (03/05) stop around the clock nebs, will keep nebs PRN if needed HTN initially on nitro paste, will stop this monitor BP and start b-chica if BP stable DVT ppx IV heparin FULL CODE
[2017-03-05] MEDS ORDERED: METOPROLOL TARTRATE 25 MG TAB PO SCH (09:00)
--- NOTE | 2017-03-05 11:33 | CARDIOLOGY CONSULTATION ---
DATE OF CONSULTATION: 03/04/2017 REFERRING PHYSICIAN: Dr. Huang. INDICATIONS: Atrial fibrillation with rapid ventricular response. HISTORY OF PRESENT ILLNESS: The patient is a 81-year-old female whose history is notable for longstanding hypertension, chronic left bundle branch block/nonspecific interventricular conduction delay, mild coronary atherosclerosis by remote cardiac catheterization in 2002, chronic obstructive lung disease with chronic tobacco use, chronic renal insufficiency and hyperlipidemia on therapies. The patient presents now noting have been discontinued all of her medications several months prior due to concerns regarding cost. She presents at this admission noting having felt poorly for greater than a week's time with breathlessness "seems somewhat weather got warm and humid." She is not aware of any tachypalpitations, but notes marked breathlessness evening prior. She presented to the Emergency Room, where she was found to be in atrial fibrillation with rapid ventricular response and signs and symptoms of a mixed respiratory failure and congestive heart failure. She was begun on BiPAP, IV diltiazem and oxygen and was referred for hospitalization. This morning, she is breathing more comfortably. She has manifested diuresis overnight of greater than 1000 mL. Heart rates were slower. She notes no history of TIA or stroke. Notes no history of syncope or near syncope. Notes no current chest pains. Has not been aware of any sense of tachypalpitations or arrhythmia. Notes no melena or hematochezia. Weight has been gradually trending downward per the patient. She notes "she is now a nonsmoker, but had been smoking up to a pack of cigarettes per day until admission." She notes no productive cough. Orthopnea has been present for at least 3 days prior to presentation. Has had mild leg edema, but notes no acute changes. Weight had no acute fluctuations. She denies any recent fevers or febrile illnesses. Notes no bleeding difficulties, melena or hematochezia. Notes no falls or gait instability. She is sedentary about her home. REVIEW OF SYSTEMS: Otherwise negative. ALLERGIES: None. MEDICATIONS: As noted at home were none. In the past, the patient had been on lisinopril and amlodipine for hypertension and atorvastatin 20 mg per day for hyperlipidemia. PAST SURGICAL HISTORY: Notable for partial hysterectomy and a remote tonsillectomy. FAMILY HISTORY: Notable for paternal grandmother with coronary artery disease at age 86. SOCIAL HISTORY: The patient resides in [place]. She is followed by Dr. Greenfield. She as noted was a one-half to one pack per day smoker up until the time of admission. Uses no significant alcoholic beverages. PHYSICAL EXAMINATION: VITAL SIGNS: This morning, heart rates 85 in atrial flutter. Blood pressure is 102/57. HEENT: Normocephalic and atraumatic. She has fair dentition. NECK: Thin. There is no distinct jugular venous distention. LUNGS: Reveal diminished breath sounds diffusely with rales, bibasilar. CARDIOVASCULAR: Irregularly irregular. There is no S3 gallop. There is a grade 1/6 systolic murmur at the apex. ABDOMEN: Soft and nondistended. EXTREMITIES: Without cyanosis or clubbing. There is trace left lower extremity edema. NEUROLOGIC: The patient is alert, answering questions, and moving extremities with strength. DATA: EKG on presentation revealed atrial fibrillation with nonspecific intraventricular conduction delay with rapid ventricular response. Echocardiogram this morning demonstrates moderate left ventricular hypertrophy with global hypokinesis, EF 45%, borderline left atrial enlargement, moderate mitral and mild tricuspid insufficiency, mild elevation in pulmonary pressures by indirect measurement. White cell count on presentation was 11.4 and this morning is 8.7 and hemoglobin 16.3. Sodium is 140, potassium is 3.8, chloride is 105, bicarbonate is 27, BUN is 14, and creatinine is 0.9. CK and MB fractions are normal. Cholesterol is 133 with an LDL of 71, on no therapies. IMPRESSION: A 81-year-old female with a history of chronic intraventricular conduction delay/left bundle branch block, hypertension, hyperlipidemia, and past remote cardiac catheterization with mild coronary atherosclerosis within the coronary vessels. The patient presents now with worsening dyspnea of several weeks in duration with newly noted atrial fibrillation and what appears to be rate mediated congestive heart failure. She is responding to diuresis. We will plan on initiating rate control with beta chica over diltiazem to regimen given the presence of heart failure. Will follow cautiously given baseline conduction abnormalities Anticoagulationhas been initiated with IV heparin. The patient will be begun on warfarin as well, Discussed findings in detail with the patient. She remains concerned regarding cost of medications. Underlying lung issues have been addressed and tobacco cessation congratulated and encouraged to lifelong. AYDEN
--- NOTE | 2017-03-05 11:54 | PROGRESS NOTE ---
DATE: 03/05/2017 CARDIOLOGY CONSULTATION FOLLOWUP NOTE The patient seen and examined, chart medications, telemetry reviewed. SUBJECTIVE: The patient feels improved this morning. Notes no dizziness or lightheadedness, notes no syncope or near syncope. Breathing is easier. Notes no productive cough. OBJECTIVE: VITAL SIGNS: Heart rate is 70-90, blood pressure is 134/87. NECK: Thin. There is minimal jugular venous distention at 30 degrees. LUNGS: Reveal diminished breath sounds diffusely. CARDIOVASCULAR: Regular with occasional ectopic beats audible. ABDOMEN: Soft. EXTREMITIES: Without cyanosis or clubbing. There is no peripheral edema. LABORATORY DATA: Sodium is 134, potassium is 4.5, chloride is 100, bicarbonate is 27, BUN is 28, and creatinine is 1.6. Troponins are negative since admission. The patient is anticoagulated with heparin. White cell count this morning is 13.4 and hemoglobin is 15.3. IMPRESSION: A 81-year-old female admitted with acute clinical decline with issues as follows: 1. Mixed respiratory failure with diastolic heart failure and right heart failure secondary to chronic obstructive pulmonary disease as well as atrial fibrillation with rapid ventricular response. 2. Atrial fibrillation with rapid ventricular response, now converted predominantly back to sinus rhythm, intermittent multifocal atrial tachycardia. PLAN: Increase metoprolol to 25 mg t.i.d. watching carefully given underlying conduction abnormalities at baseline. Continue anticoagulation with heparin with conversion to Coumadin. Hold diuretics, now her renal function has declined slightly. The patient in the outpatient setting in the last year's time had previously been on KATRIN inhibitor with lisinopril as well as amlodipine, discontinued by patient. Will follow the patient in the hospital.
[2017-03-05] MEDS: METOPROLOL TARTRATE 25 MG TAB PO SCH ×2 (13:59→20:15)
[2017-03-05] MEDS: WARFARIN SOD 5 MG TAB PO SCH (16:53)
[2017-03-05] MEDS: LEVOFLOXACIN / D5W 750 MG in PREMIXED IN D5W 150 ML IV SCH (20:15)
[2017-03-06] VITALS (7 sets, daily range): BP systolic 107–141; BP diastolic 64–84; PULSE 51–109; TEMP 36.4–36.8; O2SAT 91–99
[2017-03-06 04:41] LABS: BASO % 0.1 %; BASO ABS # 0.01 K/uL (0-0.2); COMPLETE YES; EOS % 0.1 %; IG% 0.9 %; LYMPH ABS # 1.98 K/uL (1.2-3.4); MEAN CELL VOLUME 96.3 fL (80-100); MEAN CORPUSCULAR HEMOGLOBIN 31.4 pg (25-34); MEAN CORPUSCULAR HGB CONC 32.6 g/dl (32-36); MEAN PLATELET VOLUME 9.8 fL (7.4-10.4); MONO % 10.2 %; NEUT % 72.7 %; PLATELET COUNT 161 K/uL (130-400); RED BLOOD COUNT 4.88 M/uL (4.2-5.4); WHITE BLOOD COUNT 12.41 K/uL (4.8-10.8)
[2017-03-06 04:59] LABS: INR 1.2 (0.9-1.1); PARTIAL THROMBOPLASTIN RATIO 1.7; PROTHROMBIN TIME (PATIENT) 12.8 SECONDS (9.0-12.0)
[2017-03-06 05:01] LABS: BUN/CREATININE RATIO 21.6 (10-20); CREATININE 1.2 mg/dl (0.60-1.20); MAGNESIUM 2.3 mg/dl (1.8-2.4); POTASSIUM 4.5 mmol/L (3.5-5.1)
[2017-03-06] MEDS ORDERED: HEPARIN IV BOLUS 2,000 UNIT in SYRINGE 0 ML IV ONE (06:45)
[2017-03-06] MEDS: METOPROLOL TARTRATE 25 MG TAB PO SCH ×2 (08:01→19:40)
[2017-03-06] MEDS: ASPIRIN 81 MG ECTAB PO SCH (08:01)
--- NOTE | 2017-03-06 09:24 | Cardiology Follow-Up ---
Subjective General Date of Service: Mar 06, 2017. Chief Complaint: SOB Pt evaluation today including: conversation w/ patient, physical exam, chart review, lab review, review of studies, review of inpatient medication list History of Present Illness Patient seen and examined. Feels better overall. + Dyspnea with ambulation in the room. No chest pain, palpitations, orthopnea, PND, peripheral edema, lightheadedness or dizziness. Telemetry: Currently sinus rhythm with a left bundle branch block pattern, 1st degree A-V block and frequent runs of ectopy, MAP +/- PAF. No significant periods of bradycardia or pauses observed. March 04, 2017 TTE Interpretation Summary ([facility], Dr. Hill): The left ventricle is normal in size. There is moderate concentric left ventricular hypertrophy. Septal motion is consistent with conduction abnormality. There is mild global hypokinesis of the left ventricle. Ejection Fraction = 45-50%. Borderline left atrial enlargement. There is moderate mitral regurgitation. There is mild tricuspid regurgitation. Right ventricular systolic pressure is elevated at 30- 40mmHg. Allergies Coded Allergies: No Known Allergies (Unverified , 03/03/17) Social History Smoking Status: Current Every Day Smoker Hx Tobacco Use In Past Year?: Yes Hx Alcohol Use - Type And Amou: No Hx Substance Use - Type And Am: No Problem List Medical Problems: (1) Atrial fibrillation with rapid ventricular response Status: Acute Physical Exam Vital Signs Last Vital Signs Documentation Date Time Temp Pulse Resp B/P (MAP) Pulse Ox O2 Delivery O2 Flow Rate FiO2 03/06/17 08:00 Nasal Cannula 2.0 03/06/17 07:27 36.8 51 18 141/72 (95) 96 03/05/17 04:00 60 Physical Exam Constitutional: Level of Distress: NAD, chronically ill Psychiatric: Mental Status: active & alert Orientation: to time, to place, to person Memory: recent memory normal, remote memory normal Head: normocephalic, atraumatic Eyes: Pupils: PERRLA Neck: pertinent finding (No overt JVD) Lungs: Respiratory effort: no dyspnea Auscultation: no rhonchi, deminished air movement, decreased breath sounds, expiratory wheezing Cardiovascular: Heart Auscultation: no murmurs, no rubs, gallop, irregular rate rhythm Peripheral Pulses: Radial Pulse: normal on the left, normal on the right Dorsalis Pedis Pulse: decreased on the left, decreased on the right Abdomen: Bowel Sounds: normal Inspection & Palpation: soft Extremities: no cyanosis, no edema, no clubbing Neurologic: Cranial Nerves: grossly intact Assessment and Plan Assessment and Plan 81-year-old female admitted with an acute exacerbation of obstructive pulmonary disease, new onset atrial fibrillation with a rapid ventricular response and mild acute systolic and diastolic congestive heart failure signs and symptoms. Patient with known coronary artery disease, chronic left bundle branch block, hypertension, dyslipidemia, stage III CKD. RECOMMENDATIONS/PLAN: Metoprolol tartrate 25 mg three times per day for now. Suspect this will need to be lowered down the road. Note: Cost would likely be an issue with Toprol XL. Baseline conduction abnormalities noted; patient aware of the possibility of future permanent pacemaker implantation Heparin to proper Coumadin anticoagulation. INR Goal 2.0 to 3.0 Given observed mild hypertension and mild reduction in LV systolic function will add low dose Lisinopril Tobacco cessation urged. Continue low dose ASA and statin. Outpatient Cardiology follow-up in [place] on Tuesday, March 14, 2017; office will contact patient with a specific time. Patient seen and examined, still with wheezy cough but much improved. Plan as above Matt Hill MD Laboratory Results Last 24 Hours Test 03/06/17 04:22 White Blood Count 12.41 K/uL Red Blood Count 4.88 M/uL Hemoglobin 15.3 g/dL Hematocrit 47.0 % Mean Corpuscular Volume 96.3 fL Mean Corpuscular Hemoglobin 31.4 pg Mean Corpuscular Hemoglobin Concent 32.6 g/dl Platelet Count 161 K/uL Mean Platelet Volume 9.8 fL Neutrophils (%) (Auto) 72.7 % Lymphocytes (%) (Auto) 16.0 % Monocytes (%) (Auto) 10.2 % Eosinophils (%) (Auto) 0.1 % Basophils (%) (Auto) 0.1 % Neutrophils # (Auto) 9.04 K/uL Lymphocytes # (Auto) 1.98 K/uL Monocytes # (Auto) 1.26 K/uL Eosinophils # (Auto) 0.01 K/uL Basophils # (Auto) 0.01 K/uL RDW Standard Deviation 50.1 fL RDW Coefficient of Variation 14.1 % Immature Granulocyte % (Auto) 0.9 % Immature Granulocyte # (Auto) 0.11 K/uL Prothrombin Time 12.8 SECONDS Prothromb Time International Ratio 1.2 Activated Partial Thromboplast Time 44.6 SECONDS Partial Thromboplastin Ratio 1.7 Sodium Level 138 mmol/L Potassium Level 4.5 mmol/L Chloride Level 105 mmol/L Carbon Dioxide Level 30 mmol/L Anion Gap 3.0 mmol/L Blood Urea Nitrogen 26 mg/dl Creatinine 1.20 mg/dl Est Creatinine Clear Calc Drug Dose 30.9 ml/min Estimated GFR () 49.8 Estimated GFR (Non- 43.0 BUN/Creatinine Ratio 21.6 Random Glucose 95 mg/dl Calcium Level 9.0 mg/dl Magnesium Level 2.3 mg/dl
--- NOTE | 2017-03-06 10:15 | Progress Note ---
Subjective Date of Service: Mar 06, 2017. Subjective Pt evaluation today including: conversation w/ patient, physical exam, lab review, review of studies, review of inpatient medication list Saw/examined the patient in room 234 Pt. feels anxious No chest pain or shortness of breath Very eager to get out of the hospital Problem List Medical Problems: (1) Atrial fibrillation with rapid ventricular response Status: Acute Review of Systems Constitutional: No fever, No chills Respiratory: No shortness of breath Cardiac: No chest pain Abdomen: No pain, No nausea, No vomiting, No diarrhea Psychiatric: No depression symptoms Heme: No abnormal bleeding/bruising Medications Current Inpatient Medications Medications (Trade) Dose Ordered Sig/Dilip Route Start Time Stop Time Status Last Admin Dose Admin Ioversol (Optiray 320) 100 ml UD PRN IV 03/03/17 17:45 03/07/17 17:44 Acetaminophen (Tylenol Tab) 650 mg Q4H PRN PO 03/03/17 18:15 04/02/17 18:14 Al Hydrox/Mg Hydrox/Simethicone (Maalox Max Susp) 15 ml Q4H PRN PO 03/03/17 18:15 04/02/17 18:14 Magnesium Hydroxide (Milk Of Magnesia Susp) 30 ml Q12H PRN PO 03/03/17 18:15 04/02/17 18:14 Ondansetron HCl (Zofran Inj) 4 mg Q6H PRN IV 03/03/17 18:15 04/02/17 18:14 Nitroglycerin (Nitrostat Tab) 0.4 mg UD PRN SL 03/03/17 18:15 04/02/17 18:14 Aspirin (Ecotrin Tab) 81 mg QAM PO 03/04/17 09:00 04/03/17 08:59 03/06/17 08:01 81 MG Levofloxacin 750 mg/Prmx 150 ml @ 100 mls/hr DAILY@2200 IV 03/03/17 22:30 03/10/17 21:59 03/05/17 20:15 100 MLS/HR Ipratropium [place] (Atrovent 0.02% 0.5MG/2.5ML Neb) 0.5 mg Q2H PRN INH 03/03/17 18:30 04/02/17 18:29 03/05/17 04:03 0.5 MG Levalbuterol (Xopenex 0.63 Mg/ 3 Ml Neb) 0.63 mg Q2H PRN INH 03/03/17 18:30 04/02/17 18:29 03/05/17 04:03 0.63 MG Furosemide 40 mg/ Syringe 4 ml @ 4 mls/min BID17 IV 03/04/17 09:00 04/03/17 08:59 Future Hold 03/04/17 17:09 4 MLS/MIN Heparin Sodium (Porcine) 20805 unit/Dextrose 500 ml @ 17 mls/hr Q24H PRN IV 03/03/17 22:30 04/02/17 22:29 03/05/17 08:09 16 MLS/HR Prednisone (PredniSONE TAB) 40 mg DAILY PO 03/05/17 09:00 04/04/17 08:59 03/06/17 08:02 40 MG Warfarin Sodium (Coumadin Tab) 5 mg DAILY@16 PO 03/05/17 16:00 04/04/17 15:59 03/05/17 16:53 5 MG Lisinopril (Zestril Tab) 5 mg QAM PO 03/07/17 09:00 04/06/17 08:59 Metoprolol Tartrate (Lopressor Tab) 25 mg BID PO 03/06/17 21:00 04/03/17 17:59 Objective Vital Signs Date Time Temp Pulse Resp B/P (MAP) Pulse Ox O2 Delivery O2 Flow Rate FiO2 03/06/17 08:00 Nasal Cannula 2.0 03/06/17 07:27 36.8 51 18 141/72 (95) 96 2.0 03/06/17 04:00 Nasal Cannula 2.0 03/06/17 03:10 36.4 57 18 125/84 (98) 96 Nasal Cannula 2.0 03/06/17 00:01 Nasal Cannula 2.0 03/05/17 23:10 36.8 48 18 121/69 (86) 98 Nasal Cannula 2.0 03/05/17 20:26 36.3 57 18 140/92 (108) 94 Nasal Cannula 2.0 03/05/17 20:20 Nasal Cannula 2.0 03/05/17 16:00 Nasal Cannula 2.0 03/05/17 15:30 36.5 82 18 125/78 (94) 94 Nasal Cannula 2.0 03/05/17 12:00 Nasal Cannula 3.0 03/05/17 11:41 37.0 73 18 123/67 (85) 95 Physical Exam General Appearance: no apparent distress Respiratory/Chest: lungs clear, normal breath sounds, no respiratory distress, no accessory muscle use Cardiovascular: no edema, no murmur, + irregularly irregular Extremities: normal inspection, no pedal edema Neurologic/Psychiatric: no motor/sensory deficits, alert, normal mood/affect Skin: normal color Laboratory Results Last 24 Hours Test 03/06/17 04:22 White Blood Count 12.41 K/uL Red Blood Count 4.88 M/uL Hemoglobin 15.3 g/dL Hematocrit 47.0 % Mean Corpuscular Volume 96.3 fL Mean Corpuscular Hemoglobin 31.4 pg Mean Corpuscular Hemoglobin Concent 32.6 g/dl Platelet Count 161 K/uL Mean Platelet Volume 9.8 fL Neutrophils (%) (Auto) 72.7 % Lymphocytes (%) (Auto) 16.0 % Monocytes (%) (Auto) 10.2 % Eosinophils (%) (Auto) 0.1 % Basophils (%) (Auto) 0.1 % Neutrophils # (Auto) 9.04 K/uL Lymphocytes # (Auto) 1.98 K/uL Monocytes # (Auto) 1.26 K/uL Eosinophils # (Auto) 0.01 K/uL Basophils # (Auto) 0.01 K/uL RDW Standard Deviation 50.1 fL RDW Coefficient of Variation 14.1 % Immature Granulocyte % (Auto) 0.9 % Immature Granulocyte # (Auto) 0.11 K/uL Prothrombin Time 12.8 SECONDS Prothromb Time International Ratio 1.2 Activated Partial Thromboplast Time 44.6 SECONDS Partial Thromboplastin Ratio 1.7 Sodium Level 138 mmol/L Potassium Level 4.5 mmol/L Chloride Level 105 mmol/L Carbon Dioxide Level 30 mmol/L Anion Gap 3.0 mmol/L Blood Urea Nitrogen 26 mg/dl Creatinine 1.20 mg/dl Est Creatinine Clear Calc Drug Dose 30.9 ml/min Estimated GFR () 49.8 Estimated GFR (Non- 43.0 BUN/Creatinine Ratio 21.6 Random Glucose 95 mg/dl Calcium Level 9.0 mg/dl Magnesium Level 2.3 mg/dl Assessment and Plan This is a 81 year old female who lives alone, possible underlying dementia, CKD stage 3, HTN, CAD, COPD, current ongoing tobacco use; stopped all medications about 8 months prior to arrival - sent to the ER by primary care due to shortness of breath and tachycardia, found to have new onset A. Fib New Onset A. Fib with RVR 03/06 rate controlled HRs in the 50s-60s during my exam metoprolol tartrate 25mg BID for now as per cardiology low dose Lisinopril added continue aspirin/Statin 03/05 A. fib - now rate controlled Cardizem drip is off Metoprolol Tartrate 25mg BID echo shows some hypokinesis with an EF of 40-45% start Coumadin 5mg daily for now 03/04 patient presents with new onset A. fib with rapid ventricular response started on IV heparin and IV Cardizem continues to have A. fib, rates are improving, though still elevated in the 100s -110s consulted cardiology echo pending currently max dose on Cardizem drip; should start b-chica, aspirin wean O2 as tolerated CM consulted for medication cost and pt. living alone, may have underlying dementia Acute Respiratory Failure Mixed Systolic-Diastolic CHF; R Heart failure due to COPD 03/06 continue KATRIN-I and b-chica 03/05 hold IV Lasix will likely need to restart Lasix at once a day dosing EF ~ 40-45% 03/04 last known echo in 2012 with grade I diastolic dysfunction presented with acute respiratory failure requiring Bipap now weaned down to 2L via NC will continue IV Lasix BID for now monitor kidney function get updated echo cardiology consulted for further input Acute COPD exacerbation 03/06 prednisone taper on 03/07 at 30mg x2 days then 20mg x2 days then 10mg x2 days and stop 03/05 continue prednisone 40mg today, will taper cont. nebs as needed 03/04 CTA chest negative for PE initially started on IV solu-medrol and nebs will stop IV solu-medrol; start prednisone taper (03/05) stop around the clock nebs, will keep nebs PRN if needed HTN initially on nitro paste, will stop this monitor BP and start b-chica if BP stable DVT ppx IV heparin FULL CODE
[2017-03-06 13:56] LABS: PARTIAL THROMBOPLASTIN RATIO 2.1
[2017-03-06] MEDS: WARFARIN SOD 5 MG TAB PO SCH (16:11)
[2017-03-06] MEDS ORDERED: METOPROLOL TARTRATE 25 MG TAB PO ONE (18:15)
[2017-03-06] MEDS ORDERED: METOPROLOL TARTRATE 25 MG TAB PO SCH (21:00)
[2017-03-07 03:21] VITALS: BP 99/65; PULSE 94; TEMP 36.5; O2SAT 97
[2017-03-07 05:10] LABS: HEMATOCRIT 47.5 % (37-47); MEAN CELL VOLUME 97.5 fL (80-100); MEAN CORPUSCULAR HEMOGLOBIN 31.6 pg (25-34); MEAN CORPUSCULAR HGB CONC 32.4 g/dl (32-36); MEAN PLATELET VOLUME 10.3 fL (7.4-10.4); PLATELET COUNT 147 K/uL (130-400); RED BLOOD COUNT 4.87 M/uL (4.2-5.4)
[2017-03-07 05:29] LABS: INR 2.5 (0.9-1.1); PARTIAL THROMBOPLASTIN RATIO 2.7; PROTHROMBIN TIME (PATIENT) 27.4 SECONDS (9.0-12.0)
[2017-03-07 05:35] LABS: BUN/CREATININE RATIO 31.4 (10-20); CALCIUM 8.7 mg/dl (8.5-10.1); CREATININE 0.96 mg/dl (0.60-1.20); POTASSIUM 4.5 mmol/L (3.5-5.1)
[2017-03-07] MEDS: METOPROLOL TARTRATE 25 MG TAB PO SCH ×2 (07:26→15:09)
[2017-03-07] MEDS: ASPIRIN 81 MG ECTAB PO SCH (07:29)
[2017-03-07 07:31] VITALS: BP 108/73; PULSE 80
[2017-03-07 08:00] VITALS: O2SAT 97
[2017-03-07] MEDS ORDERED: LISINOPRIL 5 MG TAB PO SCH (09:00)
--- NOTE | 2017-03-07 09:26 | Cardiology Follow-Up ---
Subjective General Date of Service: Mar 07, 2017. Chief Complaint: SOB Pt evaluation today including: conversation w/ patient, physical exam, chart review, lab review, review of studies, review of inpatient medication list History of Present Illness Patient seen and examined. Dyspnea improved. Ongoing cough and wheezing. Denies chest pain, palpitations, orthopnea, PND, peripheral edema, lightheadedness or dizziness. Telemetry: Currently atrial flutter with variable block. Heart rates ranging from ~48 bpm to 150 bpm, currently in the 80's. No significant pauses. March 04, 2017 TTE Interpretation Summary ([facility], Dr. Hill): The left ventricle is normal in size. There is moderate concentric left ventricular hypertrophy. Septal motion is consistent with conduction abnormality. There is mild global hypokinesis of the left ventricle. Ejection Fraction = 45-50%. Borderline left atrial enlargement. There is moderate mitral regurgitation. There is mild tricuspid regurgitation. Right ventricular systolic pressure is elevated at 30- 40mmHg. Allergies Coded Allergies: No Known Allergies (Unverified , 03/03/17) Social History Smoking Status: Current Every Day Smoker Hx Tobacco Use In Past Year?: Yes Hx Alcohol Use - Type And Amou: No Hx Substance Use - Type And Am: No Problem List Medical Problems: (1) Atrial fibrillation with rapid ventricular response Status: Acute Physical Exam Vital Signs Last Vital Signs Documentation Date Time Temp Pulse Resp B/P (MAP) Pulse Ox O2 Delivery O2 Flow Rate FiO2 03/07/17 07:31 80 108/73 (85) 03/07/17 04:00 Nasal Cannula 2.0 03/07/17 03:21 36.5 19 97 03/05/17 04:00 60 Physical Exam Constitutional: Level of Distress: NAD, chronically ill Psychiatric: Mental Status: active & alert Orientation: to time, to place, to person Memory: recent memory normal, remote memory normal Head: normocephalic, atraumatic Eyes: Pupils: PERRLA Neck: pertinent finding (No overt JVD) Lungs: Respiratory effort: no dyspnea Auscultation: deminished air movement, decreased breath sounds, expiratory wheezing, rhonchi Cardiovascular: Heart Auscultation: no murmurs, no rubs, tachycardia, gallop, irregular rate rhythm Peripheral Pulses: Radial Pulse: normal on the left, normal on the right Dorsalis Pedis Pulse: decreased on the left, decreased on the right Abdomen: Bowel Sounds: normal Inspection & Palpation: soft Extremities: no cyanosis, no edema, no clubbing Neurologic: Cranial Nerves: grossly intact Assessment and Plan Assessment and Plan 81-year-old female admitted with an acute exacerbation of obstructive pulmonary disease, new onset atrial fibrillation/flutter with borderline Tachy-Gerson Syndrome observed. Patient with mild acute systolic and diastolic congestive heart failure earlier in this hospitalization responding to two doses of 40 mg IV furosemide. Patient with known coronary artery disease, chronic left bundle branch block, hypertension, dyslipidemia, stage III CKD. RECOMMENDATIONS/PLAN: Metoprolol tartrate 25 mg three times per day for now. Suspect this will need to be lowered down the road. Note: Cost would likely be an issue with Toprol XL. Baseline conduction abnormalities noted, telemetry with borderline Tachy-Gerson Syndrome; patient aware of the future need for permanent pacemaker implantation Heparin to proper Coumadin anticoagulation. INR Goal 2.0 to 3.0 INR 2.5 today. Discontinue heparin Low dose Lisinopril added/resumed this admission. Continue low dose ASA and statin. Tobacco cessation Outpatient Cardiology follow-up in [place] on Tuesday, March 14, 2017 at 2: 45 PM. Patient seen and examined, assessment as above. Clinically improved but with residual lung disease. Atrial arrhythmias controlled. O2 assessment prior to discharge as ordered. Matt Hill MD Laboratory Results Last 24 Hours Test 03/06/17 13:30 03/07/17 04:45 Activated Partial Thromboplast Time 53.7 SECONDS 69.5 SECONDS Partial Thromboplastin Ratio 2.1 2.7 White Blood Count 11.10 K/uL Red Blood Count 4.87 M/uL Hemoglobin 15.4 g/dL Hematocrit 47.5 % Mean Corpuscular Volume 97.5 fL Mean Corpuscular Hemoglobin 31.6 pg Mean Corpuscular Hemoglobin Concent 32.4 g/dl RDW Standard Deviation 49.9 fL RDW Coefficient of Variation 14.0 % Platelet Count 147 K/uL Mean Platelet Volume 10.3 fL Prothrombin Time 27.4 SECONDS Prothromb Time International Ratio 2.5 Sodium Level 141 mmol/L Potassium Level 4.5 mmol/L Chloride Level 106 mmol/L Carbon Dioxide Level 32 mmol/L Anion Gap 3.0 mmol/L Blood Urea Nitrogen 30 mg/dl Creatinine 0.96 mg/dl Est Creatinine Clear Calc Drug Dose 38.9 ml/min Estimated GFR () 65.2 Estimated GFR (Non- 56.2 BUN/Creatinine Ratio 31.4 Random Glucose 82 mg/dl Calcium Level 8.7 mg/dl
[2017-03-07] MEDS ORDERED: LSN5 PO ×2 (11:19→15:21)
[2017-03-07] MEDS ORDERED: CMD5 PO ×2 (11:19→15:21)
[2017-03-07] MEDS ORDERED: LPR25 PO ×2 (11:19→15:21)
--- NOTE | 2017-03-07 11:20 | Discharge Instructions ---
Discharge Instructions Date of Service Mar 07, 2017. Admission Reason for Admission: Acute Respiratory Failure, Chf Discharge Discharge Diagnosis / Problem: ATRIAL FIBRILATION Discharge Goals Goal(s): Decrease discomfort, Diagnostic testing, Therapeutic intervention Activity Recommendations Activity Limitations: resume your previous activity . Instructions / Follow-Up Instructions / Follow-Up HOSPITAL FOLLOW UP 03/13/2017 11:[address] Deepa Ford DO [facility] NEW MEDICATION : LISINOPRIL 5 MG DAILY LOPRESSOR 25 MG THREE TIMES DAILY COUMADIN 5 MG DAILY NEED TO CHECK BLOOD WORK PT/INR WHILE TAKING COUMADIN ANTICOAGULATION /COUMADIN CLINIC WILL CALL WITH CLINIC VISIT AND LAB DRAW YOU MAY BRUISE EASILY AND BLEED LONGER WHILE ON COUMADIN NOTIFY YOUR FAMILY PHYSICIAN FOR ANY EVIDENCE OF DARK STOOL OR NOSE BLEED 03/14/2017 2:45 PM Emir Thompson DO Cardiology [facility] Current Hospital Diet Patient's current hospital diet: AHA Diet (Heart Healthy) Discharge Diet Recommended Diet: AHA Diet (Heart Healthy) Pending Studies Studies pending at discharge: no Laboratory Results Lipid Panel Test 03/04/17 04:12 Range/Units Triglycerides Level 57 0-150 mg/dl Cholesterol Level 133 0-200 mg/dl HDL Cholesterol 51 mg/dl Cholesterol/HDL Ratio 2.6 LDL Cholesterol, Calculated 71 mg/dl Medical Emergencies . Who to Call and When: Medical Emergencies: If at any time you feel your situation is an emergency, please call 911 immediately. . Non-Emergent Contact Non-Emergency issues call your: Primary Care Provider . . "Provider Documentation" section prepared by Magali Roberts. . VTE Core Measure Inpt VTE Proph given/why not?: Warfarin (Coumadin)
[2017-03-07 11:33] VITALS: BP 113/74; PULSE 98; TEMP 36.4; O2SAT 96
[2017-03-07 15:27] VITALS: BP 121/71; PULSE 98; TEMP 37; O2SAT 93
--- NOTE | 2017-03-07 15:31 | Progress Note ---
Internal Med Progress Note Date of Service: Mar 07, 2017. Provider Documentation: SUBJECTIVE: denies of any chest pain or SOB very eager to be discharged home OBJECTIVE: Vital Signs-as noted below Exam: General-no sign of distress Eyes-sclera non icteric ENT-NAd Neck-no JVD Lungs-CTA Heart-irregular Abdomen-soft, non tender Extremities-no lower ext edema Neuro-AAo x3, no focal deficit Lab data as noted below. ASSESSMENT & PLAN: This is a 81 year old female who lives alone, possible underlying dementia, CKD stage 3, HTN, CAD, COPD, current ongoing tobacco use; stopped all medications about 8 months prior to arrival - sent to the ER by primary care due to shortness of breath and tachycardia, found to have new onset A. Fib New Onset A. 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 presented with acute respiratory failure requiring Bipap weaned off to 2 L 02 via nasal canula resolved , no SOB or BURKS EF ~ 40-45% 2 step exercise done will need 2 L 02 with ambulation CM updated HTN on Beta chica and ACEI DVT ppx Coumadin FULL CODE DISPOSITION Discharge home today Vital Signs: Date Time Temp Pulse Resp B/P (MAP) Pulse Ox O2 Delivery O2 Flow Rate FiO2 03/07/17 15:27 37.0 98 18 121/71 (88) 93 Room Air 03/07/17 12:00 Room Air 03/07/17 11:33 36.4 98 20 113/74 (87) 96 Nasal Cannula 2.0 03/07/17 08:00 97 Nasal Cannula 1.0 03/07/17 07:31 80 108/73 (85) 03/07/17 04:00 Nasal Cannula 2.0 03/07/17 03:21 36.5 94 19 99/65 (76) 97 Nasal Cannula 2.0 03/07/17 00:01 Nasal Cannula 2.0 03/06/17 23:55 36.4 92 18 107/76 (86) 99 Nasal Cannula 2.0 03/06/17 20:00 Nasal Cannula 2.0 03/06/17 19:20 36.4 109 18 123/78 (93) 97 Nasal Cannula 2.0 03/06/17 16:00 Nasal Cannula 2.0 Lab Results: Results Past 24 Hours Test 03/07/17 04:45 Range/Units White Blood Count 11.10 4.8-10.8 K/uL Red Blood Count 4.87 4.2-5.4 M/uL Hemoglobin 15.4 12.0-16.0 g/dL Hematocrit 47.5 37-47 % Mean Corpuscular Volume 97.5 80-100 fL Mean Corpuscular Hemoglobin 31.6 25-34 pg Mean Corpuscular Hemoglobin Concent 32.4 32-36 g/dl RDW Standard Deviation 49.9 36.4-46.3 fL RDW Coefficient of Variation 14.0 11.5-14.5 % Platelet Count 147 130-400 K/uL Mean Platelet Volume 10.3 7.4-10.4 fL Prothrombin Time 27.4 9.0-12.0 SECONDS Prothromb Time International Ratio 2.5 0.9-1.1 Activated Partial Thromboplast Time 69.5 21.0-31.0 SECONDS Partial Thromboplastin Ratio 2.7 Sodium Level 141 136-145 mmol/L Potassium Level 4.5 3.5-5.1 mmol/L Chloride Level 106 98-107 mmol/L Carbon Dioxide Level 32 21-32 mmol/L Anion Gap 3.0 3-11 mmol/L Blood Urea Nitrogen 30 7-18 mg/dl Creatinine 0.96 0.60-1.20 mg/dl Est Creatinine Clear Calc Drug Dose 38.9 ml/min Estimated GFR () 65.2 Estimated GFR (Non- 56.2 BUN/Creatinine Ratio 31.4 10-20 Random Glucose 82 70-99 mg/dl Calcium Level 8.7 8.5-10.1 mg/dl
--- NOTE | 2017-03-07 16:00 | Discharge Summary ---
Discharge Summary Date of Service Mar 07, 2017. Discharge Summary Admission Date: Mar 03, 2017 at 18:13 Discharge Date: Mar 07, 2017 Discharge Disposition: Home with services Principal Diagnosis: ATRIAL FIBRILLATION Procedures: ECHO : The left ventricle is normal in size. There is moderate concentric left ventricular hypertrophy. Septal motion is consistent with conduction abnormality. There is mild global hypokinesis of the left ventricle. Ejection Fraction = 45-50%. Borderline left atrial enlargement. There is moderate mitral regurgitation. There is mild tricuspid regurgitation. Right ventricular systolic pressure is elevated at 30-40mmHg. CT CHEST WITH CONTRAST : IMPRESSION: 1. No pulmonary emboli identified although segmental and subsegmental pulmonary arteries suboptimally assessed due to respiratory motion. 2. Moderate pulmonary edema. Small right and trace left pleural effusions. 3. Lower lobe opacities suggestive of atelectasis. Right lower lobe pneumonia would be difficult to exclude but is considered less likely. 4. Mild cardiomegaly. Consultations: [facility] Medication Reconciliation New Medications: Lisinopril (Lisinopril) 5 Mg Tab 5 MG PO QAM for 90 Days, #90 TAB 3 Refills Metoprolol Tartrate (Lopressor) 25 Mg Tab 25 MG PO TID for 90 Days, #270 TAB Warfarin Sod (Coumadin) 5 Mg Tab 5 MG PO DAILY for 30 Days, #30 TAB Continued Medications: Aspirin (Aspirin 81) 81 Mg Tab 81 MG PO DAILY Admission Information HPI (per Admitting provider): DATE OF ADMISSION: 03/03/2017 CHIEF COMPLAINT: Shortness of breath. HISTORY OF PRESENT ILLNESS: This is a 81-year-old female with past medical history significant for depression, osteoporosis, osteoarthrosis, history of nonobstructive CAD, hyperlipidemia, coronary artery disease, CKD stage III, tobacco abuse, hypertension but currently medication nino taking only aspirin and lives alone and ADLs came here because of shortness of breath and found in rapid a fib. The patient says since last 2 weeks she getting short of breath and last 2 days becomes worse and some cough, no fever, no chest pain. In the nighttime, she is waking up with choking like feeling from shortness of breath and feeling of heart palpitations.Denies any fever, chills, no nausea, no vomiting, no headaches, no blurred vision, no dizziness, no abdominal pain. Normal bowel and bladder movements. Appetite is okay. In the ER, the patient went to the bathroom and suddenly became short of breath. She complained of not able to breathe, and she was placed on 100% nonrebreather mask and she was in rapid atrial fibrillation. She was taken to CAT scan that showed no PE, but showed bilateral pulmonary edema and she was placed on BiPAP. Currently heart rates are good. Controlled on Cardizem drip and oxygen saturations were fine on BiPAP and she seems to be feeling better. ALLERGIES: No known drug allergies. PAST MEDICAL HISTORY: As mentioned above. PAST SURGICAL HISTORY: Partial hysterectomy and tonsillectomy. MEDICATIONS: Currently taking aspirin 81 mg p.o. daily. FAMILY HISTORY: Significant for mother has heart disorder, hypertension and stroke. SOCIAL HISTORY: , smokes 1 pack a day for several years. No alcohol use. No drug use. REVIEW OF SYMPTOMS: As per HPI. Rest of review of systems negative. Physical Exam (per Admitting): PHYSICAL EXAMINATION: GENERAL: The patient is old and frail, in respiratory distress. VITAL SIGNS: Temperature 36.7, pulse 130s, respiratory 16-18, blood pressure 122/94, oxygen currently 95% on BiPAP. HEAD, EYES, EARS, NOSE, AND THROAT: No pallor, no icterus. Pupils equal, round, and reactive to light. NECK: No JVD, no neck masses. No carotid bruits. CARDIOVASCULAR: S1, S2 heard. Tachycardia. Regular rhythm. No murmurs. RESPIRATORY SYSTEM: Initially resp distress with rapid breathing but currently on BiPAP. Breathing okay. Bilateral rhonchi with mild wheezing present. ABDOMEN: Soft, bowel sounds present. Nontender. No distention. CENTRAL NERVOUS SYSTEM: Cranial nerves II-XII grossly intact. Nonfocal. EXTREMITIES: Mild trace pedal edema, no erythema seen. Hospital Course This is a 81 year old female who lives alone, possible underlying dementia, CKD stage 3, HTN, CAD, COPD, current ongoing tobacco use; stopped all medications about 8 months prior to arrival - sent to the ER by primary care due to shortness of breath and tachycardia, found to have new onset A. Fib New Onset A. 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 Discharge Instructions Discharge Instructions Date of Service Mar 07, 2017. Admission Reason for Admission: Acute Respiratory Failure, Chf Discharge Discharge Diagnosis / Problem: ATRIAL FIBRILLATION Discharge Goals Goal(s): Decrease discomfort, Diagnostic testing, Therapeutic intervention Activity Recommendations Activity Limitations: resume your previous activity . Instructions / Follow-Up Instructions / Follow-Up HOSPITAL FOLLOW UP 03/13/2017 11:[address] Deepa Ford DO [facility] NEW MEDICATION : LISINOPRIL 5 MG DAILY LOPRESSOR 25 MG THREE TIMES DAILY COUMADIN 5 MG DAILY NEED TO CHECK BLOOD WORK PT/INR WHILE TAKING COUMADIN ANTICOAGULATION /COUMADIN CLINIC WILL CALL WITH CLINIC VISIT AND LAB DRAW YOU MAY BRUISE EASILY AND BLEED LONGER WHILE ON COUMADIN NOTIFY YOUR FAMILY PHYSICIAN FOR ANY EVIDENCE OF DARK STOOL OR NOSE BLEED 03/14/2017 2:45 PM Emir Thompson DO Cardiology [facility] Current Hospital Diet Patient's current hospital diet: AHA Diet (Heart Healthy) Discharge Diet Recommended Diet: AHA Diet (Heart Healthy) Pending Studies Studies pending at discharge: no Laboratory Results Lipid Panel Test 03/04/17 04:12 Range/Units Triglycerides Level 57 0-150 mg/dl Cholesterol Level 133 0-200 mg/dl HDL Cholesterol 51 mg/dl Cholesterol/HDL Ratio 2.6 LDL Cholesterol, Calculated 71 mg/dl Medical Emergencies . Who to Call and When: Medical Emergencies: If at any time you feel your situation is an emergency, please call 911 immediately. . Non-Emergent Contact Non-Emergency issues call your: Primary Care Provider . . "Provider Documentation" section prepared by Magali Roberts. . VTE Core Measure Inpt VTE Proph given/why not?: Warfarin (Coumadin) Additional Copies To Matt Hill M.D.
[2017-03-07] MEDS: WARFARIN SOD 5 MG TAB PO SCH (17:21)
[2017-03-07 17:35] VITALS: BP 121/71; PULSE 98; TEMP 37; O2SAT 93
== END 2017-03-07 17:56 | disposition home health service (06) | DRG 291 ==
LOC: EDBD 14:15 → C.EDC 14:16 → C.2T 18:13 → ENRESERV 19:10 → CANRESERV 19:10 → ENRESERV 21:38
PROVIDERS: ADMIT Family Medicine; ATTEND Hospitalist
DX: I50.41 Acute combined systolic (congestive) and diastolic (congestive) heart failure (principal); J96.00 Acute respiratory failure, unspecified whether with hypoxia or hypercapnia; J44.1 Chronic obstructive pulmonary disease with (acute) exacerbation; I13.0 Hypertensive heart and chronic kidney disease with heart failure and stage 1 through stage 4 chronic kidney disease, or unspecified chronic kidney disease; I48.91 Unspecified atrial fibrillation; N18.3 Chronic kidney disease, stage 3 (moderate); E78.5 Hyperlipidemia, unspecified; I25.10 Atherosclerotic heart disease of native coronary artery without angina pectoris; F17.200 Nicotine dependence, unspecified, uncomplicated; Z51.81 Encounter for therapeutic drug level monitoring; Z79.82 Long term (current) use of aspirin; Z82.49 Family history of ischemic heart disease and other diseases of the circulatory system

== ENCOUNTER 2017-04-01 01:46 | Inpatient (IN) | payer OTHER ==
[2017-04-01] VITALS (11 sets, daily range): BP systolic 104–130; BP diastolic 74–103; PULSE 75–139; TEMP 36.5–36.7; O2SAT 93–98; Ht 152.4 cm; Wt 58.3 kg
[~2017-04-01] VITALS: Ht 152.4 cm; Wt 58.3 kg
[~2017-04-01 01:46] MED LIST changes: -ALBU1AER9 INH; -ASPCH81 PO; +ASPI-435 PO; -BUPR100T8 PO; -CHOL100010 PO; +CMD5 PO; -DOUNEB INH; -HYDC25 PO; -LISI20TA3 PO; +LPR25 PO; +LSN5 PO; -PANT40TA PO; -SIMV20TA2 PO
[2017-04-01] MEDS ORDERED: DILTIAZEM HCL 5 MG/ML 5 ML VIAL ONE (02:11)
[2017-04-01] MEDS ORDERED: FUROSEMIDE 40 MG/4 ML VIAL ONE (02:18)
--- NOTE | 2017-04-01 02:22 | EMERGENCY ROOM VISIT NOTE ---
History Report prepared by Lacey: Ramsey Jo Under the Supervision of: Dr. Kelsey Muñoz D.O. First contact with patient: 01:59 Chief Complaint: SHORTNESS OF BREATH Stated Complaint: SHORTNESS OF BREATH Nursing Triage Summary: Pt brought in by EMS. Pt reports SOB since this afternoon. Pt reports it became worse tonight. Pt found to be in Afib with RVR HR 150-160. Pt given Cardizem 5 mg IV by EMS and SOB became worse and BP dropped to 88 systolic. History of Present Illness The patient is a 81 year old female who presents to the Emergency Room with complaints of intermittent, severe, shortness of breath beginning yesterday. The patient states that she was home all day and would experience episodes of severe shortness of breath the would resolve. She reports that she has a history of smoking, but denies a history of emphysema. The patient notes that she has never had an inhaler or been put on Lasix. She states that she was in the hospital in late February. Her records show that she had fluid build-up in her lungs, heart failure, and atrial fibrillation. The patient reports that she was discharged on Coumadin and 2L of oxygen at home. Records show that the patient was told to stop taking Coumadin because she had an INR greater than 8. They reports the patient's injection fraction is 45-50%. They state the patient was to resume taking 1/2 a tablet of Coumadin two days ago, but she does not know if she took her medication. She notes that she is extremely hot and is experiencing diaphoresis. The patient denies abdominal pain and edema to her hands and feet. Source of History: patient Onset: yesterday Position: chest Symptom Intensity: severe Quality: other (SOB) Timing: intermittent Associated Symptoms: + diaphoresis, No abdominal pain Note: Associated symptoms: hot Denies: edema to her hands and feet Review of Systems See HPI for pertinent positives & negatives. A total of 10 systems reviewed and were otherwise negative. Past Medical & Surgical Medical Problems: (1) Acute respiratory failure (2) CHF (congestive heart failure) (3) Depression Family History Patient reports no known family medical history. Social History Smoking Status: Former Smoker Marital Status: Housing Status: lives alone Occupation Status: retired Current/Historical Medications Scheduled Lisinopril (Zestril), 5 MG PO DAILY Metoprolol Tartrate (Lopressor) (Lopressor), 25 MG PO TID Warfarin Sod (Coumadin), 2.5 MG PO Q2D Allergies Coded Allergies: No Known Allergies (Unverified , 03/03/17) Physical Exam Vital Signs Date Time Temp Pulse Resp B/P (MAP) Pulse Ox O2 Delivery O2 Flow Rate FiO2 04/01/17 04:00 122 24 127/99 96 BiPAP 04/01/17 03:15 117 24 132/87 04/01/17 02:55 112 24 97/73 98 BiPAP 04/01/17 02:51 134 95 60 04/01/17 02:21 132 33 123/92 87 04/01/17 02:18 144 04/01/17 02:16 139 22 118/100 86 04/01/17 02:11 153 26 90 04/01/17 02:06 134 32 90 04/01/17 02:01 142 27 147/124 92 04/01/17 02:01 91 Nasal Cannula 5.0 04/01/17 01:56 158 31 92 04/01/17 01:55 91 Nasal Cannula 5.0 04/01/17 01:52 36.3 141 28 145/115 91 Nasal Cannula 5.0 04/01/17 01:51 120 3 145/115 Physical Exam General: Moderate respiratory distress with tachypnea. HEENT: Head - normocephalic and atraumatic Pupils are equal, round, and reactive to light. Extraocular eye muscles are intact, and sclera are anicteric. Nose - moist nasal mucosa without discharge. Mouth - moist buccal mucosa. Oropharynx is nonerythematous and there is no tonsillar exudate or edema noted. Neck: Supple; no JVD, nuchal rigidity, cervical lymphadenopathy, or auscultated bruits. Heart: Irregularly irregular rate and tachycardic rhythm. Lungs: Diminished breath sounds at both lung bases with rales throughout. Abdomen: Soft, completely nontender, nondistended, with good bowel sounds. There are no palpable pulsatile masses or hepatosplenomegaly. There is no guarding, rigidity, or rebound noted. Extremities: No evidence of clubbing or edema. There are easily palpable peripheral pulses. Peripheral cyanosis. Skin: warm and dry with good turgor and no rashes. Medical Decision & Procedures ER Provider Diagnostic Interpretation: X-ray results as stated below per interpretation by me: Chest x-ray: large left-sided pleural effusion, significant evidence of CHF, small right-sided pleural effusion. Laboratory Results 04/01/17 01:45 Red Blood Count 5.66, Mean Corpuscular Volume 95.2, Mean Corpuscular Hemoglobin 31.6, Mean Corpuscular Hemoglobin Concent 33.2, Mean Platelet Volume 10.4, Neutrophils (%) (Auto) 47.3, Lymphocytes (%) (Auto) 39.1, Monocytes (%) (Auto) 8.7, Eosinophils (%) (Auto) 1.9, Basophils (%) (Auto) 0.9, Neutrophils # (Auto) 6.66, Lymphocytes # (Auto) 5.50, Monocytes # (Auto) 1.23, Eosinophils # (Auto) 0.27, Basophils # (Auto) 0.13 04/01/17 01:45 Test 04/01/17 01:45 White Blood Count 14.08 K/uL (4.8-10.8) Red Blood Count 5.66 M/uL (4.2-5.4) Hemoglobin 17.9 g/dL (12.0-16.0) Hematocrit 53.9 % (37-47) Mean Corpuscular Volume 95.2 fL (80-100) Mean Corpuscular Hemoglobin 31.6 pg (25-34) Mean Corpuscular Hemoglobin Concent 33.2 g/dl (32-36) Platelet Count 223 K/uL (130-400) Mean Platelet Volume 10.4 fL (7.4-10.4) Neutrophils (%) (Auto) 47.3 % Lymphocytes (%) (Auto) 39.1 % Monocytes (%) (Auto) 8.7 % Eosinophils (%) (Auto) 1.9 % Basophils (%) (Auto) 0.9 % Neutrophils # (Auto) 6.66 K/uL (1.4-6.5) Lymphocytes # (Auto) 5.50 K/uL (1.2-3.4) Monocytes # (Auto) 1.23 K/uL (0.11-0.59) Eosinophils # (Auto) 0.27 K/uL (0-0.5) Basophils # (Auto) 0.13 K/uL (0-0.2) RDW Standard Deviation 48.2 fL (36.4-46.3) RDW Coefficient of Variation 13.8 % (11.5-14.5) Immature Granulocyte % (Auto) 2.1 % Immature Granulocyte # (Auto) 0.29 K/uL (0.00-0.02) Red Blood Cell Morphology Unremarkable Prothrombin Time 17.6 SECONDS (9.0-12.0) Prothromb Time International Ratio 1.6 (0.9-1.1) Activated Partial Thromboplast Time 29.1 SECONDS (21.0-31.0) Partial Thromboplastin Ratio 1.1 Anion Gap 7.0 mmol/L (3-11) Est Creatinine Clear Calc Drug Dose 31.6 ml/min Estimated GFR () 49.8 Estimated GFR (Non- 43.0 BUN/Creatinine Ratio 17.9 (10-20) Calcium Level 9.5 mg/dl (8.5-10.1) Magnesium Level 2.0 mg/dl (1.8-2.4) Total Bilirubin 1.5 mg/dl (0.2-1) Aspartate Amino Transf (AST/SGOT) 28 U/L (15-37) Alanine Aminotransferase (ALT/SGPT) 42 U/L (12-78) Alkaline Phosphatase 71 U/L (45-117) Total Creatine Kinase 46 U/L (26-192) Creatine Kinase MB 0.9 ng/ml (0.5-3.6) Creatine Kinase MB Ratio 2.0 (0-3.0) Pro-B-Type Natriuretic Peptide 7643 pg/ml (0-1800) Total Protein 7.2 gm/dl (6.4-8.2) Albumin 3.5 gm/dl (3.4-5.0) Globulin 3.7 gm/dl (2.5-4.0) Albumin/Globulin Ratio 0.9 (0.9-2) Laboratory results per my review. Medications Administered Medications (Trade) Dose Ordered Sig/Dilip Route Start Time Stop Time Status Last Admin Dose Admin Diltiazem HCl (Cardizem Inj) 25 mg STK-MED ONCE .ROUTE 04/01/17 02:11 04/01/17 02:12 DC 04/01/17 02:25 5 MG Furosemide (Lasix Inj) 40 mg STK-MED ONCE .ROUTE 8/19/17 02:18 04/01/17 02:19 DC 04/01/17 02:25 40 MG Procedure 0211: Ordered Cardizem Inj IV 5mg were administered 0218: Ordered Lasix Inj 40mg IV ECG Indication: SOB/dyspnea Rate (beats per minute): 140 Rhythm: atrial fibrillation (with RVR) Findings: no acute ischemic change, no ectopy ED Course 0213: The patient was evaluated in room A03. A complete history and physical examination were performed. Nursing notes and previous electronic medical records were reviewed. labs were drawn as above. A twelve-lead EKG was obtained as described above. I discussed CODE STATUS with the patient and she would like to be fully resuscitated. A stat portable chest x-ray was obtained. 0218: Ordered Lasix Inj 40mg IV and place the patient on BiPAP 0241: I reevaluated the patient, and she is more comfortable on Bi-PAP. 0355: The patient refused a Jernigan catheter. Her O2Sat was 99 on Bi-PAP. The patient is going to the restroom on the bed lara. I discussed findings and results with her. She verbalized agreement of the treatment plan. 0411: I discussed the patient's case [facility] The patient will be evaluated for further care. Medical Decision The patient is a 81 year old female who presents to the ED with shortness of breath. Differential diagnosis includes atrial fibrillation with RVR, CHF, pleural effusions. Lab results show: WBC of 14.08, hemoglobin of 17.9, BUN of 21, creatinine of 1.9 , glucose of 171, LFTs are normal, cardiac enzymes are negative, BNP of 7643, INR of 1.6. The patient presents to the emergency department with a sudden onset of shortness of breath. EKG confirms atrial fibrillation with RVR. Chest x-ray shows significant pleural fusions with the left greater than the right. There is evidence of pulmonary edema. I discussed the case with the [facility] and they will evaluate for further management. Medication Reconcilliation Current Medication List: was personally reviewed by me Blood Pressure Screening Patient's blood pressure: Normal blood pressure Blood pressure disposition: Did not require urgent referral Consults Time Called: [phone] Consulting Physician[facility] Returned Call: [phone] I discussed the patient's case with Dr. Troncoso [facility] Hospitalist. The patient will be evaluated for further care. Impression Primary Impression: CHF (congestive heart failure) Additional Impression: Atrial fibrillation with rapid ventricular response Critical Care I have personally spent greater than 30 minutes of critical care time in the direct management of this patient. This includes bedside care, interpretation of diagnostic studies, and testing, discussion with consultants, patient, and family members, and other required patient management activities. This 30 minutes is in excess of all separately billable procedures. Scribe Attestation The scribe's documentation has been prepared under my direction and personally reviewed by me in its entirety. I confirm that the note above accurately reflects all work, treatment, procedures, and medical decision making performed by me. Departure Information Dispostion Being Evaluated By Hospitalist Referrals No Doctor, Assigned (PCP) Patient Instructions My [facility] Health Problem Qualifiers
[2017-04-01 02:30] LABS: HEMATOCRIT 53.9 % (37-47); MEAN CELL VOLUME 95.2 fL (80-100); MEAN CORPUSCULAR HEMOGLOBIN 31.6 pg (25-34); MEAN CORPUSCULAR HGB CONC 33.2 g/dl (32-36); MEAN PLATELET VOLUME 10.4 fL (7.4-10.4); PLATELET COUNT 223 K/uL (130-400); RED BLOOD COUNT 5.66 M/uL (4.2-5.4); WHITE BLOOD COUNT 14.08 K/uL (4.8-10.8)
[2017-04-01 02:41] LABS: INR 1.6 (0.9-1.1); PARTIAL THROMBOPLASTIN RATIO 1.1; PROTHROMBIN TIME (PATIENT) 17.6 SECONDS (9.0-12.0)
[2017-04-01] MEDS ORDERED: METO25TA56 PO (02:47)
[2017-04-01] MEDS ORDERED: LISI-729 PO (02:47)
[2017-04-01] MEDS ORDERED: CMD5 PO (02:49)
[2017-04-01 02:58] LABS: ALT/SGPT 42 U/L (12-78); AST/SGOT 28 U/L (15-37); BLOOD UREA NITROGEN 21 mg/dl (7-18); BUN/CREATININE RATIO 17.9 (10-20); CALCIUM 9.5 mg/dl (8.5-10.1); CARBON DIOXIDE 28 mmol/L (21-32); CHLORIDE 103 mmol/L (98-107); GLUCOSE 171 mg/dl (70-99); POTASSIUM 4.4 mmol/L (3.5-5.1); SODIUM 138 mmol/L (136-145)
[2017-04-01 03:03] LABS: ALB/GLOB RATIO 0.9 (0.9-2); ALKALINE PHOSPHATASE 71 U/L (45-117); BASO % 0.9 %; BASO ABS # 0.13 K/uL (0-0.2); COMPLETE YES; EOS % 1.9 %; IG% 2.1 %; LYMPH % 39.1 %; MONO % 8.7 %; NEUT % 47.3 %
[2017-04-01] MEDS ORDERED: LEVALBUTEROL/IPRATROPIUM NEB INH STA (04:17)
[2017-04-01] MEDS ORDERED: LEVALBUTEROL 1.25MG/0.5ML NEB INH STA (04:27)
[2017-04-01] MEDS ORDERED: IPRATROPIUM BROMIDE NEB SOLN 0.02% 2.5 ML VIAL INH STA (04:27)
[2017-04-01] MEDS ORDERED: IPRATROPIUM BROMIDE NEB SOLN 0.02% 2.5 ML VIAL INH PRN (04:30)
[2017-04-01] MEDS ORDERED: LEVALBUTEROL 1.25MG/0.5ML NEB INH PRN (04:30)
[2017-04-01] MEDS ORDERED: LEVALBUTEROL/IPRATROPIUM NEB INH PRN (04:30)
[2017-04-01] MEDS ORDERED: MoRPHine SULFATE 2 MG/ML CARP IV PRN (05:15)
[2017-04-01] MEDS ORDERED: ONDANSETRON INJ 2 MG/ML 2 ML VIAL IV PRN (05:15)
[2017-04-01] MEDS ORDERED: ACETAMINOPHEN 325 MG TAB PO PRN (05:15)
[2017-04-01] MEDS ORDERED: TRAMADOL HCL 50 MG TAB PO PRN (05:15)
[2017-04-01] MEDS ORDERED: NITROGLYCERIN 0.4 MG SL PER TAB CHARGE SL PRN (05:15)
[2017-04-01 05:32] LABS: VEN BLD GAS O2 SATURATION 78.5 %; VEN BLOOD GAS BASE EXCESS 1.9 mEq/L
[2017-04-01] MEDS ORDERED: WARFARIN SOD 5 MG TAB PO ONE (05:45)
[2017-04-01] MEDS ORDERED: DIGOXIN IV 250 MCG in SYRINGE 9 ML IV ONE (05:45)
[2017-04-01] MEDS ORDERED: METOPROLOL TARTRATE 50 MG TAB PO ONE (07:23)
[2017-04-01 07:34] LABS: ESTIMATED AVERAGE GLUCOSE 120 mg/dl; HA1C FLAG Normal (Normal)
[2017-04-01] MEDS ORDERED: METOPROLOL TARTRATE 1 MG/ML VIAL IV STA (08:51)
[2017-04-01] MEDS ORDERED: METOPROLOL TARTRATE 25 MG TAB PO SCH (09:00)
[2017-04-01] MEDS ORDERED: ENOXAPARIN 30 MG/0.3 ML SYR SC SCH (09:00)
--- NOTE | 2017-04-01 09:16 | Progress Note ---
Subjective Date of Service: Apr 01, 2017. Subjective Pt evaluation today including: conversation w/ patient, physical exam, lab review, review of studies, review of inpatient medication list Saw/examined the patient in room 211 She states she came to the hospital due to worsening shortness of breath; had been using 2L of O2 continuously since the end of February after being discharged from [facility] Has followed with primary care and cardiology on March 14 and was doing well then States that the humidity made her breathing worse She has been compliant with medications Denies chest pain or palpitations; denies fevers/chills/nausea/vomiting/diarrhea ; denies cough Review of Systems Constitutional: No fever, No chills Respiratory: + shortness of breath, + dyspnea on exertion, + dyspnea at rest, No cough, No sputum, No wheezing, No hemoptysis Cardiac: No chest pain, No edema, No palpitations Abdomen: No pain, No nausea, No vomiting, No diarrhea Heme: No abnormal bleeding/bruising Medications Current Inpatient Medications Medications (Trade) Dose Ordered Sig/Dilip Route Start Time Stop Time Status Last Admin Dose Admin Levalbuterol (Xopenex 1.25MG/ 0.5ML Neb) 1.25 mg Q4H PRN INH 04/01/17 04:30 05/01/17 04:29 Ipratropium [place] (Atrovent 0.02% 0.5MG/2.5ML Neb) 0.5 mg Q4H PRN INH 04/01/17 04:30 05/01/17 04:29 Warfarin Sodium (Coumadin Tab) 5 mg DAILY@16 PO 04/02/17 16:00 05/02/17 15:59 Enoxaparin Sodium (Lovenox Inj) 30 mg Q24H SC 04/01/17 09:00 05/01/17 08:59 Acetaminophen (Tylenol Tab) 650 mg Q4H PRN PO 04/01/17 05:15 05/01/17 05:14 Nitroglycerin (Nitrostat Tab) 0.4 mg UD PRN SL 04/01/17 05:15 05/01/17 05:14 Furosemide 40 mg/ Syringe 4 ml @ 4 mls/min BID17 IV 04/01/17 09:00 04/02/17 08:59 Lisinopril (Zestril Tab) 5 mg DAILY PO 04/01/17 09:00 05/01/17 08:59 Tramadol HCl (Ultram Tab) 25 mg Q6H PRN PO 04/01/17 05:15 05/01/17 05:14 Ondansetron HCl (Zofran Inj) 4 mg Q6H PRN IV 04/01/17 05:15 05/01/17 05:14 Morphine Sulfate (MoRPHine SULFATE INJ) 2 mg Q3H PRN IV 04/01/17 05:15 04/15/17 05:14 Miscellaneous Information (Pending Order) 1 ea DAILY@10 N/A 04/01/17 10:00 05/01/17 09:59 Metoprolol Tartrate (Lopressor Tab) 50 mg BID PO 04/01/17 21:00 05/01/17 08:59 Objective Vital Signs Date Time Temp Pulse Resp B/P (MAP) Pulse Ox O2 Delivery O2 Flow Rate FiO2 04/01/17 06:05 36.6 139 18 130/103 93 Nasal Cannula 4.0 04/01/17 05:55 128 04/01/17 05:16 128 20 128/88 98 04/01/17 04:36 114 20 106/84 98 04/01/17 04:00 122 24 127/99 96 BiPAP 04/01/17 03:15 117 24 132/87 04/01/17 02:55 112 24 97/73 98 BiPAP 04/01/17 02:51 134 95 60 04/01/17 02:21 132 33 123/92 87 04/01/17 02:18 144 04/01/17 02:16 139 22 118/100 86 04/01/17 02:11 153 26 90 04/01/17 02:06 134 32 90 04/01/17 02:01 142 27 147/124 92 04/01/17 02:01 91 Nasal Cannula 5.0 04/01/17 01:56 158 31 92 04/01/17 01:55 91 Nasal Cannula 5.0 04/01/17 01:52 36.3 141 28 145/115 91 Nasal Cannula 5.0 04/01/17 01:51 120 3 145/115 Physical Exam General Appearance: no apparent distress Respiratory/Chest: chest non-tender, lungs clear, normal breath sounds, no respiratory distress, no accessory muscle use Cardiovascular: no murmur, + irregularly irregular Abdomen: normal bowel sounds, non tender, soft Extremities: normal inspection, no pedal edema, + pertinent finding (L LE chronically larger than R LE) Neurologic/Psychiatric: no motor/sensory deficits, alert, normal mood/affect Laboratory Results Last 24 Hours Test 04/01/17 01:45 04/01/17 05:20 04/01/17 05:57 White Blood Count 14.08 K/uL Red Blood Count 5.66 M/uL Hemoglobin 17.9 g/dL Hematocrit 53.9 % Mean Corpuscular Volume 95.2 fL Mean Corpuscular Hemoglobin 31.6 pg Mean Corpuscular Hemoglobin Concent 33.2 g/dl Platelet Count 223 K/uL Mean Platelet Volume 10.4 fL Neutrophils (%) (Auto) 47.3 % Lymphocytes (%) (Auto) 39.1 % Monocytes (%) (Auto) 8.7 % Eosinophils (%) (Auto) 1.9 % Basophils (%) (Auto) 0.9 % Neutrophils # (Auto) 6.66 K/uL Lymphocytes # (Auto) 5.50 K/uL Monocytes # (Auto) 1.23 K/uL Eosinophils # (Auto) 0.27 K/uL Basophils # (Auto) 0.13 K/uL RDW Standard Deviation 48.2 fL RDW Coefficient of Variation 13.8 % Immature Granulocyte % (Auto) 2.1 % Immature Granulocyte # (Auto) 0.29 K/uL Red Blood Cell Morphology Unremarkable Prothrombin Time 17.6 SECONDS Prothromb Time International Ratio 1.6 Activated Partial Thromboplast Time 29.1 SECONDS Partial Thromboplastin Ratio 1.1 Sodium Level 138 mmol/L Potassium Level 4.4 mmol/L Chloride Level 103 mmol/L Carbon Dioxide Level 28 mmol/L Anion Gap 7.0 mmol/L Blood Urea Nitrogen 21 mg/dl Creatinine 1.20 mg/dl Est Creatinine Clear Calc Drug Dose 31.6 ml/min Estimated GFR () 49.8 Estimated GFR (Non- 43.0 BUN/Creatinine Ratio 17.9 Random Glucose 171 mg/dl Calcium Level 9.5 mg/dl Magnesium Level 2.0 mg/dl Total Bilirubin 1.5 mg/dl Aspartate Amino Transf (AST/SGOT) 28 U/L Alanine Aminotransferase (ALT/SGPT) 42 U/L Alkaline Phosphatase 71 U/L Total Creatine Kinase 46 U/L Creatine Kinase MB 0.9 ng/ml Creatine Kinase MB Ratio 2.0 Troponin I < 0.015 ng/ml < 0.015 ng/ml Pro-B-Type Natriuretic Peptide 7643 pg/ml Total Protein 7.2 gm/dl Albumin 3.5 gm/dl Globulin 3.7 gm/dl Albumin/Globulin Ratio 0.9 Venous Blood pH 7.40 Venous Blood Partial Pressure CO2 45 mmHg Venous Blood Partial Pressure O2 44 mmHg Venous Blood HCO3 27 mmol/L Venous Blood Oxygen Saturation 78.5 % Venous Blood Base Excess 1.9 mEq/L Lactic Acid Level 1.3 mmol/L Estimated Average Glucose 120 mg/dl Hemoglobin A1c 5.8 % Assessment and Plan This is a 81 year old female who lives alone, possible underlying dementia, CKD stage 3, HTN, CAD, presumed COPD, chronic respiratory failure on continuous 2L of O2 recently admitted in February for new onset A. fib with RVR presents with significant shortness of breath A. Fib with RVR patient presented with A. Fib with RVR was here last month with new onset A. fib HRs continue to be elevated into the 130s-140s she has been taking her metoprolol as prescribed given one dose of digoxin and one dose of Cardizem will give Lopressor 5mg x1 Coumadin; INR goal of 2-3 cardiology consultation for further input Acute on Chronic Respiratory Failure Secondary to Systolic CHF previous echo last month - EF ~ 45-50%, mild global hypokinesia BNP elevated IV Lasix 40mg BID patient has stopped tobacco use since previous admission presumed COPD; though no wheezing continue O2 2L continuously HTN blood pressure stable continue b-chica, Lisinopril Chronic Kidney Disease Stage 3 creatinine 1.2, close to baseline avoid nephrotoxic agents if able DVT ppx Lovenox + Coumadin, stop Lovenox when INR is 2-3 FULL CODE
[2017-04-01] MEDS: LISINOPRIL 5 MG TAB PO SCH (09:41)
[2017-04-01] MEDS: FUROSEMIDE INJ 40 MG in SYRINGE 0 ML IV SCH ×2 (09:44→17:10)
--- NOTE | 2017-04-01 10:06 | DIAGNOSTIC IMAGING REPORT ---
CHEST ONE VIEW PORTABLE CLINICAL HISTORY: Shortness of breath and tachycardia. COMPARISON STUDY: Chest radiograph and chest CT March 03, 2017. FINDINGS: A healed fracture of the proximal left humerus is incidentally noted. There is no pneumothorax. Small right and small to moderate left pleural effusions are noted. The left pleural effusion is increased in size. There is moderate pulmonary edema. Left basilar opacity is progressed right basilar opacity is also increased. IMPRESSION: 1. Moderate pulmonary edema, slightly improved when compared to exam of March 03, 2017. 2. Small to moderate left and small right pleural effusions with bibasilar opacities which are increased since prior exam. The bibasilar opacities statistically reflect atelectasis although consolidation could appear similar. Electronically signed by: Gregg Polo M.D. 04/01/2017 10:04 AM Dictated Date/Time: 04/01/2017 10:03 AM
--- NOTE | 2017-04-01 11:17 | HISTORY & PHYSICAL EXAMINATION ---
DATE OF ADMISSION: 04/01/2017 PRIMARY CARE PHYSICIAN: Dr. Mary. CHIEF COMPLAINT: Shortness of breath. HISTORY OF PRESENT ILLNESS: History obtained from patient's [id number] and records. Medical history significant for chronic systolic heart failure, history of nonocclusive CAD, chronic left bundle branch block, hypertension, hyperlipidemia, COPD, past tobacco abuse, polycythemia as per records, atrial fibrillation on anticoagulation. Recent confinement last month for new onset atrial fibrillation with RVR attributed to COPD and CHF. 2D echo at that time showed LVH, EF 45%, mild global hypokinesis of left ventricle, moderate MR, mild TR, RV systolic pressure was elevated at 30-40 mmHg. Patient was discharged on Coumadin, metoprolol tartrate 25 TID. Lisinopril added to regimen. Patient compliant with home meds. Follow up with jet handler about 2 weeks ago, aspirin discontinued to decrease out of pocket cost and bleeding risk. Future consideration obtaining Holter monitor to make sure she is not significantly tachycardic or bradycardic as per note. Yesterday, patient overwhelmed by humidity, had difficulty breathing, increasing shortness of breath noted. No chest pain. Compliant with home medication. Denies dietary discretion, no unusual cough symptoms. Patient brought by EMS to the Emergency Room. BiPAP initiated and Lasix given for CHF. Px currently feeling better feeling better but frustrated that she can't talk through the BiPAP mask. MEDICAL HISTORY: As above. SURGERIES: Hysterectomy, tonsillectomy. HOME MEDICATIONS: Include Coumadin, metoprolol, lisinopril. ALLERGIES: No known drug allergies. FAMILY HISTORY: Heart disease, stroke, breast cancer. PERSONAL AND SOCIAL HISTORY: Past tobacco abuse, no chronic intake of alcoholic beverages. Lives by herself. 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 REVIEW OF SYSTEMS: As per HPI, all other ROS negative. PHYSICAL EXAMINATION: VITAL SIGNS: Blood pressure was noted to be 145/115, pulse rate 141, later 110, RR 28, temperature 36.6, sats 91 on 5 liters, later 98 on BiPAP. GENERAL: Noted to be in respiratory distress. Looks younger for stated age. SKIN: Normal color. HEAD, EYES, EARS, NOSE, AND THROAT: [place] palpable conjunctivae. Dry mucosa. BiPAP mask on NECK: JVD noted. Supple. CHEST: Decreased breath sounds. HEART: tachycardic. ABDOMEN: Some distension, nontender. EXTREMITIES: No edema. No tenderness NEUROLOGIC: No gross focality. LABORATORY DATA: Hemoglobin was noted to be 17.9, WBC 14, platelets 223. Sodium 138, potassium 4.4, chloride 103, CO2 28, BUN 21, creatinine 1.2, glucose was noted to be 171. INR was 1.6. trop 0 Chest x-ray as per my interpretation, cardiomegaly, congestion, pleural effusion , L. EKG as per my interpretation, rate 140s, AFl, LBBB, LAD, LAFB, incomplete right bundle branch block, poor R-wave progression. Q-waves in inferior leads. ASSESSMENT AND PLAN: 1. Acute hypoxemic respiratory failure secondary to decompensated heart failure History chronic systolic heart failure EF 45% possibly from uncontrolled heart rate at home. 2. History of atrial fibrillation on Coumadin. tachycardic. INR is slightly subtherapeutic. 3. Hypertension, stable. 4. History of nonocclusive CAD as per records 5. Chronic obstructive pulmonary disease. Past tobacco abuse. No unusual cough symptoms. 6. Hyperglycemia rule out diabetes mellitus PCU continue BiPAP. Baseline ABG. Nebs when necessary. Diuretic regimen. Change Lopressor 25 TID dosing to 50 twice a day for now CHF education. Strict IOs, daily weights. Cardio consult RE decompensated CHF Check hemoglobin A1c PT OT eval DVT prophylaxis, Coumadin, INR 2-3. FULL CODE. Patient's [id number] requesting updates from providers. Mrs. Davida Chavarria at [phone]. MTDD
--- NOTE | 2017-04-01 13:44 | CARDIOLOGY CONSULTATION ---
DATE OF CONSULTATION: 04/01/2017 REFERRING PHYSICIAN: Dr. Julio Troncoso. REASON FOR CONSULTATION: Atrial fibrillation, shortness of breath, congestive heart failure, pleural effusions. HISTORY OF PRESENT ILLNESS: Ms. Chavarria is a complex 81-year-old female recently admitted with paroxysmal atrial fibrillation and rapid ventricular response in February. She was evaluated by cardiology during that visit. Noted to have mildly reduced left ventricular systolic function with ejection fraction of 45%. She was prescribed Coumadin and metoprolol. The patient returned to the ER early this a.m. with worsening shortness of breath. She was noted to be in atrial fibrillation with rapid ventricular response. She was treated with intravenous metoprolol, intravenous digoxin, as well as 50 mg dose of oral metoprolol. Currently, her heart rate is in the 80s-90s. She remains in atrial fibrillation. Chest x-ray demonstrates bilateral pleural effusions which have increased since her recent hospitalization. She denies orthopnea or PND. Denies chest pain. She initially was treated with BiPAP, which has been discontinued. Feeling much better at this time. REVIEW OF SYSTEMS: The pertinent positives are noted above, a comprehensive 10-system review is otherwise negative. PAST MEDICAL HISTORY: 1. Paroxysmal atrial fibrillation, recently diagnosed. 2. Hypertension. 3. Left bundle branch block/nonspecific interventricular conduction delay. 4. Mild coronary disease by catheterization in 2002. 5. Chronic obstructive pulmonary disease with chronic tobacco use. 6. Moderate mitral regurgitation. 7. Mild tricuspid regurgitation. PAST SURGICAL HISTORY: Partial hysterectomy and remote tonsillectomy. FAMILY HISTORY: Negative for premature CAD or sudden cardiac . Paternal grandmother with CAD at age 86. SOCIAL HISTORY: The patient resides in [place] and follows with Amarjit Greenfield as her PCP. She smokes 1/2 pack to 1 pack of cigarettes per day. Denies alcohol intake. ALLERGIES: No known drug allergies. LABORATORY DATA: INR is 1.6. White blood cell count 14.08, hemoglobin is 17.9, platelet count is 223. Sodium 138, potassium 4.4, chloride 103, CO2 is 28, BUN 21, creatinine is 1.20. Cardiac enzymes are undetectable x2 sets. Her ProBNP is 7643. VBG on admission 7.40/45/44/27/78%. Chest x-ray on admission demonstrates pulmonary vascular congestion with bilateral pleural effusions, left greater than right. The left-sided effusion is moderate. PHYSICAL EXAMINATION: VITAL SIGNS: Temperature is 36.6 degrees centigrade, pulse currently 90 beats per minute and irregular, respiratory rate is 20 breaths per minute, blood pressure 106/78, SaO2 is 94% on 4 liters nasal cannula. GENERAL: NAD, resting comfortably. Awake and alert. Arouses to verbal stimuli. HEENT: Her mucous membranes are moist. No scleral icterus. Conjunctivae pink. NECK: Supple without JVD or HJR. No carotid bruit. HEART: Irregular, borderline tachycardic with a normal S1 and S2. There is a 1/6 holosystolic murmur heard best at the apex. LUNGS: Demonstrate diminished breath sounds at the bases. No rhonchi or wheeze. No rales. ABDOMEN: Soft, nontender. No rebound or guarding. Normal bowel sounds. EXTREMITIES: Warm and dry. There is no clubbing, cyanosis, or edema. NEUROLOGIC: Demonstrates no focal deficit. FINAL IMPRESSION: 1. Acute decompensated heart failure secondary to atrial fibrillation with rapid ventricular response, diastolic dysfunction, moderate mitral regurgitation as well as mild systolic dysfunction. The patient improved with intravenous diuretic therapy and rate control. 2. Persistent atrial fibrillation with rapid ventricular response. 3. History of nonobstructive coronary artery disease per remote catheterization. 4. Hypertension -- controlled. 5. Bilateral pleural effusions. 6. Left bundle branch block. PLAN AND RECOMMENDATIONS: Continue intravenous diuretic therapy as previously ordered. Coumadin will be dosed today for goal INR of 2.0-3.0. I agree with titration of metoprolol to 50 mg twice daily. I will also add digoxin 125 mcg daily to begin tomorrow, 04/02/2017. No need for repeat echocardiogram at this time. We will continue to follow fluid balance, GFR, electrolytes closely during hospitalization. Thank you for allowing me to take part in the care of your patient.
[2017-04-01] MEDS: METOPROLOL TARTRATE 50 MG TAB PO SCH (21:11)
[2017-04-02 04:00] VITALS: BP 135/72; PULSE 89; TEMP 36.7; O2SAT 97
[2017-04-02 06:27] LABS: BASO % 0.8 %; BASO ABS # 0.09 K/uL (0-0.2); COMPLETE YES; EOS % 2.5 %; HEMATOCRIT 51.8 % (37-47); LYMPH % 26.6 %; LYMPH ABS # 2.85 K/uL (1.2-3.4); MEAN CELL VOLUME 93.8 fL (80-100); MEAN CORPUSCULAR HEMOGLOBIN 30.6 pg (25-34); MEAN CORPUSCULAR HGB CONC 32.6 g/dl (32-36); MEAN PLATELET VOLUME 9.8 fL (7.4-10.4); NEUT % 56.1 %; PLATELET COUNT 163 K/uL (130-400); RED BLOOD COUNT 5.52 M/uL (4.2-5.4); WHITE BLOOD COUNT 10.72 K/uL (4.8-10.8)
[2017-04-02 06:35] LABS: INR 2.6 (0.9-1.1); PROTHROMBIN TIME (PATIENT) 29.5 SECONDS (9.0-12.0)
[2017-04-02 07:00] VITALS: BP 132/93; PULSE 93; TEMP 37; O2SAT 96
[2017-04-02 07:05] LABS: BUN/CREATININE RATIO 24.2 (10-20); CALCIUM 8.7 mg/dl (8.5-10.1); CREATININE 1.1 mg/dl (0.60-1.20); POTASSIUM 3.5 mmol/L (3.5-5.1)
[2017-04-02] MEDS: LISINOPRIL 5 MG TAB PO SCH (07:40)
[2017-04-02] MEDS: METOPROLOL TARTRATE 50 MG TAB PO SCH ×2 (07:40→20:26)
--- NOTE | 2017-04-02 09:37 | Progress Note ---
Subjective Date of Service: Apr 02, 2017. Subjective Pt evaluation today including: conversation w/ patient, physical exam, lab review, review of studies, review of inpatient medication list Saw/examined the patient in room 211 She is doing well in terms of her breathing Ambulated with OT, walked to the bathroom, breathing closer to baseline denies chest pain or palpitations Problem List Medical Problems: (1) Atrial fibrillation with rapid ventricular response Status: Acute Review of Systems Constitutional: No fever, No chills Respiratory: + shortness of breath, + dyspnea on exertion, No cough, No sputum , No wheezing, No hemoptysis Cardiac: No chest pain, No edema, No palpitations Abdomen: No pain, No nausea, No vomiting, No diarrhea Female : No dysuria Heme: No abnormal bleeding/bruising Medications Current Inpatient Medications Medications (Trade) Dose Ordered Sig/Dilip Route Start Time Stop Time Status Last Admin Dose Admin Levalbuterol (Xopenex 1.25MG/ 0.5ML Neb) 1.25 mg Q4H PRN INH 04/01/17 04:30 05/01/17 04:29 Ipratropium [place] (Atrovent 0.02% 0.5MG/2.5ML Neb) 0.5 mg Q4H PRN INH 04/01/17 04:30 05/01/17 04:29 Acetaminophen (Tylenol Tab) 650 mg Q4H PRN PO 04/01/17 05:15 05/01/17 05:14 Nitroglycerin (Nitrostat Tab) 0.4 mg UD PRN SL 04/01/17 05:15 05/01/17 05:14 Lisinopril (Zestril Tab) 5 mg DAILY PO 04/01/17 09:00 05/01/17 08:59 04/02/17 07:40 5 MG Tramadol HCl (Ultram Tab) 25 mg Q6H PRN PO 04/01/17 05:15 05/01/17 05:14 Ondansetron HCl (Zofran Inj) 4 mg Q6H PRN IV 04/01/17 05:15 05/01/17 05:14 Morphine Sulfate (MoRPHine SULFATE INJ) 2 mg Q3H PRN IV 04/01/17 05:15 04/15/17 05:14 Metoprolol Tartrate (Lopressor Tab) 50 mg BID PO 04/01/17 21:00 05/01/17 08:59 04/02/17 07:40 50 MG Digoxin (Lanoxin Tab) 0.125 mg DAILY@1600 PO 04/02/17 16:00 05/02/17 15:59 Warfarin Sodium (Coumadin Tab) 2 mg DAILY@16 PO 04/02/17 16:00 05/02/17 15:59 Furosemide (Lasix Tab) 20 mg QAM PO 04/03/17 09:00 05/03/17 08:59 UNV Objective Vital Signs Date Time Temp Pulse Resp B/P (MAP) Pulse Ox O2 Delivery O2 Flow Rate FiO2 04/02/17 07:00 37.0 93 22 132/93 (106) 96 Nasal Cannula 4.0 04/02/17 04:00 Nasal Cannula 4.0 04/02/17 04:00 36.7 89 20 135/72 (93) 97 Nasal Cannula 4.0 04/02/17 00:00 Nasal Cannula 4.5 04/01/17 22:56 36.7 94 20 120/97 (105) 98 Nasal Cannula 4.5 04/01/17 20:00 Nasal Cannula 4.5 04/01/17 19:13 36.6 84 21 130/80 (97) 96 Nasal Cannula 4.0 04/01/17 16:00 93 Nasal Cannula 4.0 04/01/17 15:50 36.5 77 22 123/74 (90) 96 Nasal Cannula 4.0 04/01/17 14:01 75 96 04/01/17 12:02 36.5 97 22 112/81 (91) 93 Nasal Cannula 4.0 04/01/17 12:00 93 Nasal Cannula 4.0 04/01/17 09:45 99 106/78 Physical Exam General Appearance: no apparent distress Respiratory/Chest: no respiratory distress, no accessory muscle use, + decreased breath sounds Cardiovascular: + tachycardia, + irregularly irregular Extremities: normal inspection, no pedal edema Neurologic/Psychiatric: no motor/sensory deficits, alert, normal mood/affect Laboratory Results Last 24 Hours Test 04/01/17 12:05 04/02/17 06:14 Troponin I < 0.015 ng/ml White Blood Count 10.72 K/uL Red Blood Count 5.52 M/uL Hemoglobin 16.9 g/dL Hematocrit 51.8 % Mean Corpuscular Volume 93.8 fL Mean Corpuscular Hemoglobin 30.6 pg Mean Corpuscular Hemoglobin Concent 32.6 g/dl Platelet Count 163 K/uL Mean Platelet Volume 9.8 fL Neutrophils (%) (Auto) 56.1 % Lymphocytes (%) (Auto) 26.6 % Monocytes (%) (Auto) 13.0 % Eosinophils (%) (Auto) 2.5 % Basophils (%) (Auto) 0.8 % Neutrophils # (Auto) 6.01 K/uL Lymphocytes # (Auto) 2.85 K/uL Monocytes # (Auto) 1.39 K/uL Eosinophils # (Auto) 0.27 K/uL Basophils # (Auto) 0.09 K/uL RDW Standard Deviation 46.9 fL RDW Coefficient of Variation 13.6 % Immature Granulocyte % (Auto) 1.0 % Immature Granulocyte # (Auto) 0.11 K/uL Prothrombin Time 29.5 SECONDS Prothromb Time International Ratio 2.6 Sodium Level 139 mmol/L Potassium Level 3.5 mmol/L Chloride Level 101 mmol/L Carbon Dioxide Level 33 mmol/L Anion Gap 5.0 mmol/L Blood Urea Nitrogen 27 mg/dl Creatinine 1.10 mg/dl Est Creatinine Clear Calc Drug Dose 33.8 ml/min Estimated GFR () 55.3 Estimated GFR (Non- 47.7 BUN/Creatinine Ratio 24.2 Random Glucose 90 mg/dl Calcium Level 8.7 mg/dl Assessment and Plan This is a 81 year old female who lives alone, possible underlying dementia, CKD stage 3, HTN, CAD, presumed COPD, chronic respiratory failure on continuous 2L of O2 recently admitted in February for new onset A. fib with RVR presents with significant shortness of breath A. Fib with RVR 04/02 appreciate cardiology input started digoxin 0.125mg metoprolol was increased yesterday, HRs improved while at rest, but are accelerated during exertion may need to increase metoprolol again, vs. waiting for digoxin to take effect - will await cardiology input stopped Lovenox; decreased Coumadin to 2mg today, and recheck INR in AM 04/01 patient presented with A. Fib with RVR was here last month with new onset A. fib HRs continue to be elevated into the 130s-140s she has been taking her metoprolol as prescribed given one dose of digoxin and one dose of Cardizem will give Lopressor 5mg x1 Coumadin; INR goal of 2-3 cardiology consultation for further input Acute on Chronic Respiratory Failure Secondary to Systolic CHF 04/02 she is doing much better in terms of breathing status can stop IV Lasix further recommendations as per cardiology 04/01 previous echo last month - EF ~ 45-50%, mild global hypokinesia BNP elevated IV Lasix 40mg BID patient has stopped tobacco use since previous admission presumed COPD; though no wheezing continue O2 2L continuously HTN blood pressure stable continue b-chica, Lisinopril Chronic Kidney Disease Stage 3 creatinine 1.2, close to baseline avoid nephrotoxic agents if able DVT ppx Coumadin FULL CODE
--- NOTE | 2017-04-02 10:33 | Cardiology Follow-Up ---
Subjective General Date of Service: Apr 02, 2017. Pt evaluation today including: conversation w/ patient, physical exam, chart review, lab review, review of studies, conversation w/ systems security consultant, review of inpatient medication list History of Present Illness The patient is a 81 year old female seen in follow-up. Patient feeling much better today. Dyspnea has improved. No edema or orthopnea. Denies chest discomfort or palpitations. Heart rate well controlled during sleep with borderline control during activity. Functional capacity improved. Requesting discharge if possible. Allergies Coded Allergies: No Known Allergies (Unverified , 03/03/17) Social History Smoking Status: Former Smoker Hx Tobacco Use In Past Year?: Yes Hx Alcohol Use - Type And Amou: No Hx Substance Use - Type And Am: No Problem List Medical Problems: (1) Atrial fibrillation with rapid ventricular response Status: Acute Review of Systems Respiratory: No cough, No sputum, No wheezing, No shortness of breath, No dyspnea on exertion, No dyspnea at rest, No hemoptysis Cardiac: No chest pain, No orthopnea, No PND, No edema, No claudication, No palpitations Physical Exam Vital Signs Last Vital Signs Documentation Date Time Temp Pulse Resp B/P (MAP) Pulse Ox O2 Delivery O2 Flow Rate FiO2 04/02/17 07:00 37.0 93 22 132/93 (106) 96 Nasal Cannula 4.0 04/01/17 02:51 60 Physical Exam Constitutional: General Apperance: well-nourished Level of Distress: NAD Head: normocephalic, atraumatic ENMT: normal ENT inspection Neck: supple, trachea midline Lungs: Auscultation: decreased breath sounds, rales/crackles on the left Cardiovascular: Heart Auscultation: tachycardia, irregular rate rhythm Extremities: no cyanosis, no edema, no clubbing, no ulcers Neurologic: Cranial Nerves: grossly intact Assessment and Plan Assessment and Plan FINAL IMPRESSION: 1. Acute decompensated heart failure secondary to atrial fibrillation with rapid ventricular response, diastolic dysfunction, moderate mitral regurgitation as well as mild systolic dysfunction. - resolving 2. Persistent atrial fibrillation with rapid ventricular response. - heart rate improved with titration of beta chica and addition of low dose digoxin. 3. History of nonobstructive coronary artery disease per remote catheterization. 4. Hypertension -- controlled. 5. Bilateral pleural effusions. 6. Left bundle branch block. PLAN AND RECOMMENDATIONS: Continue metoprolol 50 mg twice a day and low-dose digoxin. Add furosemide 20 mg daily. Continue other cardiovascular medications as previously ordered. Recommend repeat BMP and cardiology follow-up in 1-2 weeks. Laboratory Results Last 24 Hours Test 04/01/17 12:05 04/02/17 06:14 Troponin I < 0.015 ng/ml White Blood Count 10.72 K/uL Red Blood Count 5.52 M/uL Hemoglobin 16.9 g/dL Hematocrit 51.8 % Mean Corpuscular Volume 93.8 fL Mean Corpuscular Hemoglobin 30.6 pg Mean Corpuscular Hemoglobin Concent 32.6 g/dl Platelet Count 163 K/uL Mean Platelet Volume 9.8 fL Neutrophils (%) (Auto) 56.1 % Lymphocytes (%) (Auto) 26.6 % Monocytes (%) (Auto) 13.0 % Eosinophils (%) (Auto) 2.5 % Basophils (%) (Auto) 0.8 % Neutrophils # (Auto) 6.01 K/uL Lymphocytes # (Auto) 2.85 K/uL Monocytes # (Auto) 1.39 K/uL Eosinophils # (Auto) 0.27 K/uL Basophils # (Auto) 0.09 K/uL RDW Standard Deviation 46.9 fL RDW Coefficient of Variation 13.6 % Immature Granulocyte % (Auto) 1.0 % Immature Granulocyte # (Auto) 0.11 K/uL Prothrombin Time 29.5 SECONDS Prothromb Time International Ratio 2.6 Sodium Level 139 mmol/L Potassium Level 3.5 mmol/L Chloride Level 101 mmol/L Carbon Dioxide Level 33 mmol/L Anion Gap 5.0 mmol/L Blood Urea Nitrogen 27 mg/dl Creatinine 1.10 mg/dl Est Creatinine Clear Calc Drug Dose 33.8 ml/min Estimated GFR () 55.3 Estimated GFR (Non- 47.7 BUN/Creatinine Ratio 24.2 Random Glucose 90 mg/dl Calcium Level 8.7 mg/dl
[2017-04-02 12:22] VITALS: BP 110/69; PULSE 87; TEMP 36.3; O2SAT 98
[2017-04-02] MEDS ORDERED: LSX20 PO (15:35)
[2017-04-02] MEDS ORDERED: METO50TA16 PO (15:35)
[2017-04-02] MEDS ORDERED: LNX125 PO (15:35)
--- NOTE | 2017-04-02 15:45 | Discharge Instructions ---
Discharge Instructions Date of Service Apr 02, 2017. Admission Reason for Admission: Acute Respiratory Failure Discharge Discharge Diagnosis / Problem: Acute Respiratory Failure, likely CHF exacerbation and A. Fib with RVR Discharge Goals Goal(s): Decrease discomfort, Improve function, Diagnostic testing, Therapeutic intervention Activity Recommendations Activity Limitations: resume your previous activity . Instructions / Follow-Up Instructions / Follow-Up Please follow-up with Dr. Mary on April 05 at 12:45PM * Your dose of metoprolol is increased to 50mg twice a day * You will be started on Lasix 20mg every other day * You will also be started on Digoxin 0.125mg * Primary care physician should recheck BMP in 1 week * Hold Coumadin for two days, restart on 04/05 * Check INR level at with home health in 2-3 days Follow-up with Dr. Lovelace, cardiology, in 1-2 weeks Current Hospital Diet Patient's current hospital diet: AHA Diet (Heart Healthy) Discharge Diet Recommended Diet: AHA Diet (Heart Healthy) Pending Studies Studies pending at discharge: no Laboratory Results Hemoglobin A1c Test 04/01/17 05:57 Range/Units Estimated Average Glucose 120 mg/dl Hemoglobin A1c 5.8 H 4.5-5.6 % Lipid Panel Test 03/04/17 04:12 Range/Units Triglycerides Level 57 0-150 mg/dl Cholesterol Level 133 0-200 mg/dl HDL Cholesterol 51 mg/dl Cholesterol/HDL Ratio 2.6 LDL Cholesterol, Calculated 71 mg/dl Medical Emergencies . Who to Call and When: Medical Emergencies: If at any time you feel your situation is an emergency, please call 911 immediately. . Non-Emergent Contact Non-Emergency issues call your: Primary Care Provider . . "Provider Documentation" section prepared by Hailey Huang. . VTE Core Measure Inpt VTE Proph given/why not?: Warfarin (Coumadin)
[2017-04-02] MEDS: DIGOXIN 0.125 MG TAB PO SCH (15:51)
[2017-04-02] MEDS ORDERED: WARFARIN SOD 5 MG TAB PO SCH (16:00)
[2017-04-02] MEDS ORDERED: WARFARIN SOD 2 MG TAB PO SCH (16:00)
[2017-04-02 16:02] VITALS: BP 106/80; PULSE 88; TEMP 36.3; O2SAT 96
[2017-04-02 20:11] VITALS: BP 116/62; PULSE 84; TEMP 36.7; O2SAT 95
[2017-04-03] VITALS: BP 111/68; PULSE 68; TEMP 37; O2SAT 96
[2017-04-03 04:09] VITALS: BP 121/75; PULSE 78; TEMP 36.9; O2SAT 96
[2017-04-03 07:02] LABS: HEMATOCRIT 52.6 % (37-47); MEAN CELL VOLUME 94.8 fL (80-100); MEAN CORPUSCULAR HEMOGLOBIN 31.9 pg (25-34); MEAN CORPUSCULAR HGB CONC 33.7 g/dl (32-36); MEAN PLATELET VOLUME 10.1 fL (7.4-10.4); PLATELET COUNT 174 K/uL (130-400); RED BLOOD COUNT 5.55 M/uL (4.2-5.4); WHITE BLOOD COUNT 11.08 K/uL (4.8-10.8)
[2017-04-03 07:23] LABS: PROTHROMBIN TIME (PATIENT) 43.4 SECONDS (9.0-12.0)
[2017-04-03 07:33] LABS: INR 3.8 (0.9-1.1)
[2017-04-03 07:36] LABS: BUN/CREATININE RATIO 16.8 (10-20); CALCIUM 9.1 mg/dl (8.5-10.1); CREATININE 1.4 mg/dl (0.60-1.20)
[2017-04-03 08:23] VITALS: BP 91/73; PULSE 77; TEMP 36.7; O2SAT 94
[2017-04-03 08:25] VITALS: BP 118/66
[2017-04-03] MEDS: METOPROLOL TARTRATE 50 MG TAB PO SCH (08:26)
[2017-04-03] MEDS: LISINOPRIL 5 MG TAB PO SCH (08:27)
[2017-04-03] MEDS ORDERED: LSX20 PO (08:51)
--- NOTE | 2017-04-03 08:59 | Progress Note ---
Subjective Date of Service: Apr 03, 2017. Subjective Pt evaluation today including: conversation w/ patient, physical exam, lab review, review of studies, review of inpatient medication list Saw/examined the patient in room 211 She's doing well, no problems/issues to note Her breathing is improved +anxious about going home, but has no complaints regarding her breathing Problem List Medical Problems: (1) Atrial fibrillation with rapid ventricular response Status: Acute Review of Systems Constitutional: No fever Respiratory: No cough, No sputum, No shortness of breath (improved) Cardiac: No chest pain, No edema, No palpitations Medications Current Inpatient Medications Medications (Trade) Dose Ordered Sig/Dilip Route Start Time Stop Time Status Last Admin Dose Admin Levalbuterol (Xopenex 1.25MG/ 0.5ML Neb) 1.25 mg Q4H PRN INH 04/01/17 04:30 05/01/17 04:29 Ipratropium [place] (Atrovent 0.02% 0.5MG/2.5ML Neb) 0.5 mg Q4H PRN INH 04/01/17 04:30 05/01/17 04:29 Acetaminophen (Tylenol Tab) 650 mg Q4H PRN PO 04/01/17 05:15 05/01/17 05:14 Nitroglycerin (Nitrostat Tab) 0.4 mg UD PRN SL 04/01/17 05:15 05/01/17 05:14 Lisinopril (Zestril Tab) 5 mg DAILY PO 04/01/17 09:00 05/01/17 08:59 04/03/17 08:27 5 MG Tramadol HCl (Ultram Tab) 25 mg Q6H PRN PO 04/01/17 05:15 05/01/17 05:14 Ondansetron HCl (Zofran Inj) 4 mg Q6H PRN IV 04/01/17 05:15 05/01/17 05:14 Morphine Sulfate (MoRPHine SULFATE INJ) 2 mg Q3H PRN IV 04/01/17 05:15 04/15/17 05:14 Metoprolol Tartrate (Lopressor Tab) 50 mg BID PO 04/01/17 21:00 05/01/17 08:59 04/03/17 08:26 50 MG Digoxin (Lanoxin Tab) 0.125 mg DAILY@1600 PO 04/02/17 16:00 05/02/17 15:59 04/02/17 15:51 0.125 MG Warfarin Sodium (Coumadin Tab) 2 mg DAILY@16 PO 04/02/17 16:00 05/02/17 15:59 Future Hold 04/02/17 15:51 2 MG Furosemide (Lasix Tab) 20 mg QAM PO 04/03/17 09:00 05/03/17 08:59 04/03/17 08:26 20 MG Objective Vital Signs Date Time Temp Pulse Resp B/P (MAP) Pulse Ox O2 Delivery O2 Flow Rate FiO2 04/03/17 08:25 118/66 (83) 04/03/17 08:23 36.7 77 18 91/73 (79) 94 Nasal Cannula 3.0 04/03/17 04:09 36.9 78 18 121/75 (90) 96 Nasal Cannula 3.0 04/03/17 04:00 Nasal Cannula 3.0 04/03/17 00:00 Nasal Cannula 3.0 04/03/17 00:00 37.0 68 18 111/68 (82) 96 Nasal Cannula 3.0 04/02/17 20:11 36.7 84 20 116/62 (80) 95 Nasal Cannula 4.0 04/02/17 20:00 Nasal Cannula 3.0 04/02/17 16:09 Nasal Cannula 4.0 04/02/17 16:02 36.3 88 18 106/80 (89) 96 Nasal Cannula 4.0 04/02/17 15:51 85 04/02/17 12:22 36.3 87 20 110/69 (83) 98 Nasal Cannula 4.0 04/02/17 12:00 Nasal Cannula 4.0 Physical Exam General Appearance: no apparent distress Respiratory/Chest: lungs clear, normal breath sounds, no respiratory distress, no accessory muscle use Cardiovascular: + irregularly irregular Abdomen: normal bowel sounds, non tender, soft Extremities: normal inspection, no pedal edema Laboratory Results Last 24 Hours Test 04/03/17 06:28 White Blood Count 11.08 K/uL Red Blood Count 5.55 M/uL Hemoglobin 17.7 g/dL Hematocrit 52.6 % Mean Corpuscular Volume 94.8 fL Mean Corpuscular Hemoglobin 31.9 pg Mean Corpuscular Hemoglobin Concent 33.7 g/dl RDW Standard Deviation 47.5 fL RDW Coefficient of Variation 13.7 % Platelet Count 174 K/uL Mean Platelet Volume 10.1 fL Prothrombin Time 43.4 SECONDS Prothromb Time International Ratio 3.8 Sodium Level 137 mmol/L Potassium Level 4.0 mmol/L Chloride Level 99 mmol/L Carbon Dioxide Level 35 mmol/L Anion Gap 3.0 mmol/L Blood Urea Nitrogen 24 mg/dl Creatinine 1.40 mg/dl Est Creatinine Clear Calc Drug Dose 26.0 ml/min Estimated GFR () 41.3 Estimated GFR (Non- 35.6 BUN/Creatinine Ratio 16.8 Random Glucose 92 mg/dl Calcium Level 9.1 mg/dl Assessment and Plan This is a 81 year old female who lives alone, possible underlying dementia, CKD stage 3, HTN, CAD, presumed COPD, chronic respiratory failure on continuous 2L of O2 recently admitted in February for new onset A. fib with RVR presents with significant shortness of breath A. Fib with RVR - resolved 04/03 HRs improved will continue metoprolol 50mg BID continue Digoxin 0.125mg daily hold Coumadin for 2 days, restart on 04/05 recheck INR with home health 04/02 appreciate cardiology input started digoxin 0.125mg metoprolol was increased yesterday, HRs improved while at rest, but are accelerated during exertion may need to increase metoprolol again, vs. waiting for digoxin to take effect - will await cardiology input stopped Lovenox; decreased Coumadin to 2mg today, and recheck INR in AM 04/01 patient presented with A. Fib with RVR was here last month with new onset A. fib HRs continue to be elevated into the 130s-140s she has been taking her metoprolol as prescribed given one dose of digoxin and one dose of Cardizem will give Lopressor 5mg x1 Coumadin; INR goal of 2-3 cardiology consultation for further input Acute on Chronic Respiratory Failure Secondary to Systolic CHF 04/03 had been on Lasix 20mg daily; creatinine going up will switch to Lasix q2days, recheck BMP as outpatient 04/02 she is doing much better in terms of breathing status can stop IV Lasix further recommendations as per cardiology 04/01 previous echo last month - EF ~ 45-50%, mild global hypokinesia BNP elevated IV Lasix 40mg BID patient has stopped tobacco use since previous admission presumed COPD; though no wheezing continue O2 2L continuously HTN blood pressure stable continue b-chica, Lisinopril Chronic Kidney Disease Stage 3 creatinine 1.2, close to baseline avoid nephrotoxic agents if able DVT ppx Coumadin FULL CODE Discharge planning: home with home health
[2017-04-03] MEDS ORDERED: FUROSEMIDE 20 MG TAB PO SCH (09:00)
--- NOTE | 2017-04-03 09:08 | Discharge Summary ---
Discharge Summary Date of Service Apr 02, 2017. Discharge Summary Admission Date: Apr 01, 2017 at 04:26 Discharge Date: Apr 02, 2017 Discharge Disposition: Home Principal Diagnosis: Acute Respiratory Failure, Acute Systolic CHF exacerbation A. fib with RVR Medication Reconciliation New Medications: Digoxin (Digoxin) 0.125 Mg Tab 0.125 MG PO DAILY@1600 for 30 Days, #30 TAB Furosemide (Furosemide) 20 Mg Tab 20 MG PO Q2D for 30 Days, #15 TAB Changed Medications: Metoprolol Tartrate (Lopressor) (Lopressor) 50 Mg Tab 1 TAB PO BID for 30 Days, #60 TAB 5 Refills (Changed from: Metoprolol Tartrate ( Lopressor) (Lopressor) 25 Mg Tab 25 Mg PO TID) Continued Medications: Lisinopril (Zestril) 5 Mg Tab 5 MG PO DAILY, TAB Warfarin Sod (Coumadin) 5 Mg Tab 2.5 MG PO Q2D 1/2 TABLET EVERY OTHER DAY. Admission Information HPI (per Admitting provider): DATE OF ADMISSION: 04/01/2017 PRIMARY CARE PHYSICIAN: Dr. Mary. CHIEF COMPLAINT: Shortness of breath. HISTORY OF PRESENT ILLNESS: History obtained from patient's [id number] and records. Medical history significant for chronic systolic heart failure, history of nonocclusive CAD, chronic left bundle branch block, hypertension, hyperlipidemia, COPD, past tobacco abuse, polycythemia as per records, atrial fibrillation on anticoagulation. Recent confinement last month for new onset atrial fibrillation with RVR attributed to COPD and CHF. 2D echo at that time showed LVH, EF 45%, mild global hypokinesis of left ventricle, moderate MR, mild TR, RV systolic pressure was elevated at 30-40 mmHg. Patient was discharged on Coumadin, metoprolol tartrate 25 TID. Lisinopril added to regimen. Patient compliant with home meds. Follow up with off track betting manager about 2 weeks ago, aspirin discontinued to decrease out of pocket cost and bleeding risk. Future consideration obtaining Holter monitor to make sure she is not significantly tachycardic or bradycardic as per note. Yesterday, patient overwhelmed by humidity, had difficulty breathing, increasing shortness of breath noted. No chest pain. Compliant with home medication. Denies dietary discretion, no unusual cough symptoms. Patient brought by EMS to the Emergency Room. BiPAP initiated and Lasix given for CHF. Px currently feeling better feeling better but frustrated that she can't talk through the BiPAP mask. MEDICAL HISTORY: As above. SURGERIES: Hysterectomy, tonsillectomy. HOME MEDICATIONS: Include Coumadin, metoprolol, lisinopril. ALLERGIES: No known drug allergies. FAMILY HISTORY: Heart disease, stroke, breast cancer. PERSONAL AND SOCIAL HISTORY: Past tobacco abuse, no chronic intake of alcoholic beverages. Lives by herself. 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 REVIEW OF SYSTEMS: As per HPI, all other ROS negative. PHYSICAL EXAMINATION: VITAL SIGNS: Blood pressure was noted to be 145/115, pulse rate 141, later 110, RR 28, temperature 36.6, sats 91 on 5 liters, later 98 on BiPAP. GENERAL: Noted to be in respiratory distress. Looks younger for stated age. SKIN: Normal color. HEAD, EYES, EARS, NOSE, AND THROAT: [place] palpable conjunctivae. Dry mucosa. BiPAP mask on NECK: JVD noted. Supple. CHEST: Decreased breath sounds. HEART: tachycardic. ABDOMEN: Some distension, nontender. EXTREMITIES: No edema. No tenderness NEUROLOGIC: No gross focality. LABORATORY DATA: Hemoglobin was noted to be 17.9, WBC 14, platelets 223. Sodium 138, potassium 4.4, chloride 103, CO2 28, BUN 21, creatinine 1.2, glucose was noted to be 171. INR was 1.6. trop 0 Chest x-ray as per my interpretation, cardiomegaly, congestion, pleural effusion , L. EKG as per my interpretation, rate 140s, AFl, LBBB, LAD, LAFB, incomplete right bundle branch block, poor R-wave progression. Q-waves in inferior leads. ASSESSMENT AND PLAN: 1. Acute hypoxemic respiratory failure secondary to decompensated heart failure History chronic systolic heart failure EF 45% possibly from uncontrolled heart rate at home. 2. History of atrial fibrillation on Coumadin. tachycardic. INR is slightly subtherapeutic. 3. Hypertension, stable. 4. History of nonocclusive CAD as per records 5. Chronic obstructive pulmonary disease. Past tobacco abuse. No unusual cough symptoms. 6. Hyperglycemia rule out diabetes mellitus PCU continue BiPAP. Baseline ABG. Nebs when necessary. Diuretic regimen. Change Lopressor 25 TID dosing to 50 twice a day for now CHF education. Strict IOs, daily weights. Cardio consult RE decompensated CHF Check hemoglobin A1c PT OT eval DVT prophylaxis, Coumadin, INR 2-3. FULL CODE. Patient's [id number] requesting updates from providers. Mrs. Davida Chavarria at [phone]. Hospital Course This is a 81 year old female who lives alone, possible underlying dementia, CKD stage 3, HTN, CAD, presumed COPD, chronic respiratory failure on continuous 2L of O2 recently admitted in February for new onset A. fib with RVR presents with significant shortness of breath A. Fib with RVR - resolved 04/03 HRs improved will continue metoprolol 50mg BID continue Digoxin 0.125mg daily hold Coumadin for 2 days, restart on 04/05 recheck INR with home health 04/02 appreciate cardiology input started digoxin 0.125mg metoprolol was increased yesterday, HRs improved while at rest, but are accelerated during exertion may need to increase metoprolol again, vs. waiting for digoxin to take effect - will await cardiology input stopped Lovenox; decreased Coumadin to 2mg today, and recheck INR in AM 04/01 patient presented with A. Fib with RVR was here last month with new onset A. fib HRs continue to be elevated into the 130s-140s she has been taking her metoprolol as prescribed given one dose of digoxin and one dose of Cardizem will give Lopressor 5mg x1 Coumadin; INR goal of 2-3 cardiology consultation for further input Acute on Chronic Respiratory Failure Secondary to Systolic CHF 04/03 had been on Lasix 20mg daily; creatinine going up will switch to Lasix q2days, recheck BMP as outpatient 04/02 she is doing much better in terms of breathing status can stop IV Lasix further recommendations as per cardiology 04/01 previous echo last month - EF ~ 45-50%, mild global hypokinesia BNP elevated IV Lasix 40mg BID patient has stopped tobacco use since previous admission presumed COPD; though no wheezing continue O2 2L continuously HTN blood pressure stable continue b-chica, Lisinopril Chronic Kidney Disease Stage 3 creatinine 1.2, close to baseline avoid nephrotoxic agents if able DVT ppx Coumadin FULL CODE Discharge planning: home with home health Total time spent on discharge = 55 minutes This includes examination of the patient, discharge planning, medication reconciliation, and communication with other providers. Discharge Instructions Please follow-up with Dr. Mary on April 05 at 12:45PM * Your dose of metoprolol is increased to 50mg twice a day * You will be started on Lasix 20mg every other day * You will also be started on Digoxin 0.125mg * Primary care physician should recheck BMP in 1 week * Hold Coumadin for two days, restart on 04/05 * Check INR level at with home health in 2-3 days Follow-up with Dr. Lovelace, cardiology, in 1-2 weeks
--- NOTE | 2017-04-03 11:18 | Cardiology Follow-Up ---
Subjective General Date of Service: Apr 03, 2017. Pt evaluation today including: conversation w/ patient, physical exam, chart review, lab review, review of studies, review of inpatient medication list History of Present Illness The patient is a 81 year old female seen in follow-up. Feeling better from a cardiovascular standpoint. Denies chest pain or shortness of breath. Heart rate improved with addition of digoxin titration of metoprolol. Patient offers no complaints this time. Requesting cardiology follow-up in [place] if possible. Allergies Coded Allergies: No Known Allergies (Unverified , 03/03/17) Social History Smoking Status: Former Smoker Hx Tobacco Use In Past Year?: Yes Hx Alcohol Use - Type And Amou: No Hx Substance Use - Type And Am: No Problem List Medical Problems: (1) Atrial fibrillation with rapid ventricular response Status: Acute Review of Systems Respiratory: + dyspnea on exertion, No cough, No sputum, No wheezing, No shortness of breath, No dyspnea at rest, No hemoptysis Cardiac: No chest pain, No orthopnea, No PND, No edema, No claudication Physical Exam Vital Signs Last Vital Signs Documentation Date Time Temp Pulse Resp B/P (MAP) Pulse Ox O2 Delivery O2 Flow Rate FiO2 04/03/17 08:25 118/66 (83) 04/03/17 08:23 36.7 77 18 94 Nasal Cannula 3.0 04/01/17 02:51 60 Physical Exam Constitutional: General Apperance: well-nourished Level of Distress: NAD Head: normocephalic, atraumatic ENMT: normal ENT inspection Neck: supple, trachea midline Lungs: Auscultation: decreased breath sounds, rales/crackles on the left Cardiovascular: Heart Auscultation: no murmurs, irregular rate rhythm Extremities: no cyanosis, no edema, no clubbing, no ulcers Neurologic: Cranial Nerves: grossly intact Assessment and Plan Assessment and Plan FINAL IMPRESSION: 1. Acute decompensated heart failure secondary to atrial fibrillation with rapid ventricular response, diastolic dysfunction, moderate mitral regurgitation as well as mild systolic dysfunction. - resolving 2. Persistent atrial fibrillation with rapid ventricular response. - heart rate improved with titration of beta chica and addition of low dose digoxin. 3. History of nonobstructive coronary artery disease per remote catheterization. 4. Hypertension -- controlled. 5. Bilateral pleural effusions. 6. Left bundle branch block. PLAN AND RECOMMENDATIONS: Continue metoprolol 50 mg twice a day and low-dose digoxin. Hold Lasix tomorrow secondary to elevated creatinine. Resume Lasix on Monday. Reduce scheduled to every other day. Repeat basic metabolic panel as an outpatient in one week. Continue other cardiovascular medications as previously ordered. I will arrange for cardiology follow-up in [place] in one week. Laboratory Results Last 24 Hours Test 04/03/17 06:28 White Blood Count 11.08 K/uL Red Blood Count 5.55 M/uL Hemoglobin 17.7 g/dL Hematocrit 52.6 % Mean Corpuscular Volume 94.8 fL Mean Corpuscular Hemoglobin 31.9 pg Mean Corpuscular Hemoglobin Concent 33.7 g/dl RDW Standard Deviation 47.5 fL RDW Coefficient of Variation 13.7 % Platelet Count 174 K/uL Mean Platelet Volume 10.1 fL Prothrombin Time 43.4 SECONDS Prothromb Time International Ratio 3.8 Sodium Level 137 mmol/L Potassium Level 4.0 mmol/L Chloride Level 99 mmol/L Carbon Dioxide Level 35 mmol/L Anion Gap 3.0 mmol/L Blood Urea Nitrogen 24 mg/dl Creatinine 1.40 mg/dl Est Creatinine Clear Calc Drug Dose 26.0 ml/min Estimated GFR () 41.3 Estimated GFR (Non- 35.6 BUN/Creatinine Ratio 16.8 Random Glucose 92 mg/dl Calcium Level 9.1 mg/dl
[2017-04-03 11:44] VITALS: BP 124/64; PULSE 92; TEMP 36.6; O2SAT 93
[2017-04-03 11:54] VITALS: BP 124/64; PULSE 92; TEMP 36.6; O2SAT 93
[2017-04-03] MEDS: DIGOXIN 0.125 MG TAB PO SCH (15:51)
[2017-04-05] MEDS ORDERED: FUROSEMIDE 20 MG TAB PO SCH (09:00)
== END 2017-04-03 16:00 | disposition home health service (06) | DRG 291 ==
LOC: EDBD 01:46 → EDSEX 01:46 → C.EDA 01:47 → C.2E 04:26 → ENRESERV 04:39
PROVIDERS: ADMIT Family Medicine; ATTEND Family Medicine
DX: I13.0 Hypertensive heart and chronic kidney disease with heart failure and stage 1 through stage 4 chronic kidney disease, or unspecified chronic kidney disease (principal); I50.23 Acute on chronic systolic (congestive) heart failure; J96.21 Acute and chronic respiratory failure with hypoxia; I48.1 Persistent atrial fibrillation; N18.3 Chronic kidney disease, stage 3 (moderate); I25.10 Atherosclerotic heart disease of native coronary artery without angina pectoris; J44.9 Chronic obstructive pulmonary disease, unspecified; R73.9 Hyperglycemia, unspecified; I44.7 Left bundle-branch block, unspecified; Z87.891 Personal history of nicotine dependence; Z99.81 Dependence on supplemental oxygen; Z79.01 Long term (current) use of anticoagulants; Z79.899 Other long term (current) drug therapy; Z82.49 Family history of ischemic heart disease and other diseases of the circulatory system; Z82.3 Family history of stroke; Z80.3 Family history of malignant neoplasm of breast

== ENCOUNTER 2017-06-23 21:39 | Inpatient (IN) | payer OTHER ==
[~2017-06-23] VITALS: Ht 152.4 cm; Wt 65.4 kg
[~2017-06-23 21:39] MED LIST changes: -ASPI-435 PO; +LISI-729 PO; +LNX125 PO; -LPR25 PO; -LSN5 PO; +LSX20 PO; +METO50TA16 PO; +RAPID SEQUENCE INDUCTION BAG ONE
[2017-06-23] MEDS ORDERED: PROPOFOL IV EMULSION 10 MG/ML 100 ML VIAL IV ONE (21:56)
[2017-06-23] MEDS ORDERED: SODIUM CHLORIDE 0.9% 1000ML 1,000 ML IV STA ×2 (21:58→23:43)
[2017-06-23] MEDS ORDERED: METO50TA16 PO (21:59)
[2017-06-23] MEDS ORDERED: ASPI81TA28 PO (21:59)
[2017-06-23] MEDS ORDERED: ATOR-22 PO (21:59)
[2017-06-23] MEDS ORDERED: SERT25TA PO (21:59)
[2017-06-23] MEDS ORDERED: WARF1TAB6 PO (21:59)
[2017-06-23] MEDS ORDERED: FURO-85 PO (21:59)
[2017-06-23 22:00] VITALS: O2SAT 99
--- NOTE | 2017-06-23 22:00 | EMERGENCY ROOM VISIT NOTE ---
History Report prepared by Lacey: Abner Griffith Under the Supervision of: Tom StoutO. First contact with patient: 21:44 Chief Complaint: UNRESPONSIVE Stated Complaint: UNRESPONSIVE History of Present Illness The patient is a 81 year old female who presents to the Emergency Room via EMS due to persistent unresponsiveness that started earlier today. Per EMS, the patient's family members returned home from work and found the patient unresponsive and unconscious on the floor. The patient has still not spoken since being found unresponsive. History limited secondary to patient's unresponsiveness. Source of History: patient, EMS History Limited By: AMS, other (unresponsiveness) Onset: Prior to arrival earlier today Position: other (global - unresponsiveness) Quality: other (found on floor by family members) Timing: other (persistent) Associated Symptoms: + LOC Note: No other associated symptoms noted. Review of Systems ROS limited secondary to patient's unresponsiveness. Past Medical & Surgical Medical Problems: (1) Acute respiratory failure (2) CHF (congestive heart failure) (3) Comfort measures only status (4) Depression (5) Unresponsive Family History Patient reports no known family medical history. Social History Smoking Status: Unknown if Ever Smoked Marital Status: Housing Status: lives alone Occupation Status: retired Current/Historical Medications Scheduled Aspirin (Aspirin Ec), 81 MG PO DAILY Atorvastatin (Lipitor), 20 MG PO DAILY Digoxin (Digoxin), 0.125 MG PO DAILY@1600 Furosemide (Lasix), 20 MG PO 5XWK Metoprolol Tartrate (Lopressor) (Lopressor), 50 MG PO BID Sertraline (Zoloft), 25 MG PO DAILY Warfarin Sod (Jantoven), 1 MG PO DIRECTED Allergies Coded Allergies: No Known Allergies (Unverified , 03/03/17) Physical Exam Vital Signs Date Time Temp Pulse Resp B/P (MAP) Pulse Ox O2 Delivery O2 Flow Rate FiO2 06/24/17 00:40 84 14 139/63 94 Nasal Cannula 2.0 06/23/17 23:45 75 15 128/60 100 Mechanical Ventilator 60 06/23/17 22:57 60 06/23/17 22:55 16 148/85 100 Mechanical Ventilator 06/23/17 22:44 100 06/23/17 22:15 37.3 06/23/17 22:00 99 Ambu-Bag 15.0 06/23/17 21:58 100 11/10/17 21:56 98 Non-Rebreather 06/23/17 21:55 86 06/23/17 21:46 94 24 155/74 98 Non-Rebreather 15.0 Physical Exam GENERAL: unresponsive, elderly female EYE EXAM: Normal conjunctiva, PERRL. Patient was uncooperative to do extraocular muscles. OROPHARYNX: no exudate, no erythema, lips, buccal mucosa, and tongue normal and mucous membranes are dry. NPA in place. Being assisted by BBM. NECK: supple, no nuchal rigidity, no adenopathy, non-tender LUNGS: Clear to auscultation. Normal chest wall mechanics HEART: Irregular and tachycardic. Equal chest rise and fall with bagging. ABDOMEN: abdomen soft, non-tender, normo-active bowel sounds, no masses, no rebound or guarding. BACK: Back is symmetrical on inspection and there is no deformity, no midline tenderness, no CVA tenderness. SKIN: no rashes and no bruising UPPER EXTREMITIES: upper extremities are grossly normal, normal pulses LOWER EXTREMITIES: No pitting edema. Normal pulses. NEURO EXAM: Nonverbal, would not open eyes. Would attempt to localize pain. Would not follow commands, would not respond to name. Medical Decision & Procedures ER Provider Diagnostic Interpretation: Radiology results have been interpreted by the radiologist and reviewed by me. CHEST ONE VIEW PORTABLE HISTORY: 81 years-old Female CODE BLUE acutely unresponsive patient COMPARISON: Chest radiograph 04/01/2017, CTA chest 03/03/2017 TECHNIQUE: Portable supine AP view of the chest FINDINGS: Cardiac silhouette is moderately enlarged. Endotracheal tube overlies the trachea terminating 2.1 cm superior to the shabbir. Enteric tube courses below the diaphragm with distal tip outside the [id number]. Proximal side-port is near the GE junction. There is no pneumothorax or large pleural effusion. Mild blunting of the right costophrenic angle may reflect trace pleural effusion. Chronic appearing reticular interstitial opacities are noted without lobar airspace consolidation or overt pulmonary edema. Bones of the chest are grossly intact. Degenerative changes involve the shoulders and spine. There is a linear 6.0 cm radiopaque device overlying the left shoulder. IMPRESSION: 1. Endotracheal tube overlies the midline terminating 2.1 cm superior to the shabbir. 2. Enteric tube courses below the diaphragm outside the [id number]. 3. Cardiomegaly with chronic reticular interstitial opacities. The above report was generated using voice recognition software. It may contain grammatical, syntax or spelling errors. Electronically signed by: Mannie Basilio M.D. 06/23/2017 10:31 PM Dictated Date/Time: 06/23/2017 10:28 PM HEAD WITHOUT CONTRAST (CT) CLINICAL HISTORY: 81 years-old Female with unresponsive. Acute fall with unresponsiveness. TECHNIQUE: Multiple axial CT images of the head were obtained without contrast. A dose lowering technique was utilized adhering to the principles of ALARA. CT DOSE: 962.52 mGy.cm COMPARISON: None. FINDINGS: There is a large area of ill-defined decreased attenuation involving the left MCA distribution, primarily involving the left frontal and temporal lobes which measures up to 10.9 x 4.7 cm in AP and transverse dimension. There is gyral expansion with sulcal effacement within this distribution with cytotoxic edema and blurring of the gee-white interface. This results in 2 mm rightward midline shift. Areas of increased attenuation within the infarction distribution of the left temporal lobe are noted suspicious for petechial hemorrhage. Mild background cerebral atrophy. No calvarial fracture. Mastoid air cells and middle ear cavities are clear. Mucosal secretions of the nasopharynx, likely secondary to dilated status. Soft tissues are unremarkable. 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 Findings were discussed with Dr. Ernandez present on 06/23/2017 at 10:49 PM The above report was generated using voice recognition software. It may contain grammatical, syntax or spelling errors. Electronically signed by: Mannie Basilio M.D. 06/23/2017 10:50 PM Dictated Date/Time: 06/23/2017 10:39 PM CERVICAL SPINE W/O CLINICAL HISTORY: 81 years-old Female with fall. Patient found unresponsive on the floor. COMPARISON: CT head of same day. TECHNIQUE: Multiple axial CT images of the cervical spine were obtained without contrast. A dose lowering technique was utilized adhering to the principles of ALARA. FINDINGS: Straightening of the normal cervical lordosis. No acute cervical spine fracture or subluxation. Multilevel advanced intervertebral disc space narrowing with uncovertebral spurring and facet arthropathy. Endotracheal tube is present within the trachea. Enteric tube of the esophagus. Moderate layering secretions are seen within the airway. Interlobular septal thickening of the lung apices noted. Heterogeneous appearing thyroid is noted. Mild atherosclerotic plaquing of the carotid bulbs. IMPRESSION: 1. No acute fracture or subluxation of the cervical spine. 2. Multilevel degenerative changes as above. 3. Endotracheal tube of the trachea and enteric tube of the esophagus noted. The above report was generated using voice recognition software. It may contain grammatical, syntax or spelling errors. Electronically signed by: Mannie Basilio M.D. 06/23/2017 10:54 PM Dictated Date/Time: 06/23/2017 10:51 PM Laboratory Results 06/23/17 21:50 Red Blood Count 5.05, Mean Corpuscular Volume 93.1, Mean Corpuscular Hemoglobin 30.1, Mean Corpuscular Hemoglobin Concent 32.3, Mean Platelet Volume 10.3, Neutrophils (%) (Auto) 74.7, Lymphocytes (%) (Auto) 13.7, Monocytes (%) (Auto) 10.8, Eosinophils (%) (Auto) 0.1, Basophils (%) (Auto) 0.2, Neutrophils # (Auto ) 12.95, Lymphocytes # (Auto) 2.37, Monocytes # (Auto) 1.87, Eosinophils # (Auto ) 0.01, Basophils # (Auto) 0.03 06/23/17 21:50 Test 06/23/17 21:50 06/23/17 21:51 06/23/17 21:55 06/23/17 22:01 White Blood Count 17.32 K/uL (4.8-10.8) Red Blood Count 5.05 M/uL (4.2-5.4) Hemoglobin 15.2 g/dL (12.0-16.0) Hematocrit 47.0 % (37-47) Mean Corpuscular Volume 93.1 fL (80-100) Mean Corpuscular Hemoglobin 30.1 pg (25-34) Mean Corpuscular Hemoglobin Concent 32.3 g/dl (32-36) Platelet Count 132 K/uL (130-400) Mean Platelet Volume 10.3 fL (7.4-10.4) Neutrophils (%) (Auto) 74.7 % Lymphocytes (%) (Auto) 13.7 % Monocytes (%) (Auto) 10.8 % Eosinophils (%) (Auto) 0.1 % Basophils (%) (Auto) 0.2 % Neutrophils # (Auto) 12.95 K/uL (1.4-6.5) Lymphocytes # (Auto) 2.37 K/uL (1.2-3.4) Monocytes # (Auto) 1.87 K/uL (0.11-0.59) Eosinophils # (Auto) 0.01 K/uL (0-0.5) Basophils # (Auto) 0.03 K/uL (0-0.2) RDW Standard Deviation 48.3 fL (36.4-46.3) RDW Coefficient of Variation 14.4 % (11.5-14.5) Immature Granulocyte % (Auto) 0.5 % Immature Granulocyte # (Auto) 0.09 K/uL (0.00-0.02) Prothrombin Time 19.5 SECONDS (9.0-12.0) Prothromb Time International Ratio 1.8 (0.9-1.1) Activated Partial Thromboplast Time 29.9 SECONDS (21.0-31.0) Partial Thromboplastin Ratio 1.2 Est Creatinine Clear Calc Drug Dose 38.8 ml/min Estimated GFR () 55.3 Estimated GFR (Non- 47.7 BUN/Creatinine Ratio 20.5 (10-20) Bedside Glucose 144 mg/dl (70-90) Calcium Level 9.0 mg/dl (8.5-10.1) Total Bilirubin 1.2 mg/dl (0.2-1) Direct Bilirubin 0.3 mg/dl (0-0.2) Aspartate Amino Transf (AST/SGOT) 54 U/L (15-37) Alanine Aminotransferase (ALT/SGPT) 29 U/L (12-78) Alkaline Phosphatase 69 U/L (45-117) Total Creatine Kinase 1739 U/L (26-192) Creatine Kinase MB 13.3 ng/ml (0.5-3.6) Creatine Kinase MB Ratio 0.8 (0-3.0) Pro-B-Type Natriuretic Peptide 88758 pg/ml (0-1800) Total Protein 7.2 gm/dl (6.4-8.2) Albumin 3.4 gm/dl (3.4-5.0) Digoxin Level 0.8 ng/ml (0.8-2.0) Bedside Hemoglobin 16.0 g/dl (12.0-16.0) Bedside Hematocrit 47 % (37-47) Bedside Sodium 142 mEq/L (135-144) Bedside Potassium 3.9 mEq/L (3.3-5.0) Bedside Chloride 100 mEq/L (101-112) Bedside Total CO2 28 mEq/l (24-31) Anion Gap 19.0 mmol/L (16-25) Bedside Blood Urea Nitrogen 24 mg/dl (7-18) Bedside Creatinine 0.9 mg/dl (0.6-1.3) Bedside Glucose (other) 139 mg/dl (70-99) Bedside Ionized Calcium (Анна) 1.14 mmol/l (1.12-1.32) Bedside Lactic Acid Venous 5.17 mmol/L (0.90-1.70) Bedside Troponin I < 0.030 ng/ml (0-0.045) Test 06/23/17 22:10 06/23/17 22:50 06/23/17 23:59 Lactic Acid Level 3.4 mmol/L (0.4-2.0) Urine Color DK YELLOW Urine Appearance CLEAR (CLEAR) Urine pH 6.0 (4.5-7.5) Urine Specific [place] 1.018 (1.000-1.030) Urine Protein 2+ (NEG) Urine Glucose (UA) NEG (NEG) Urine Ketones NEG (NEG) Urine Occult Blood 2+ (NEG) Urine Nitrite NEG (NEG) Urine Bilirubin NEG (NEG) Urine Urobilinogen NEG (NEG) Urine Leukocyte Esterase NEG (NEG) Urine WBC (Auto) 1-5 /hpf (0-5) Urine RBC (Auto) 0-4 /hpf (0-4) Urine Hyaline Casts (Auto) 1-5 /lpf (0-5) Urine Epithelial Cells (Auto) 20-30 /lpf (0-5) Urine Bacteria (Auto) NEG (NEG) Arterial Blood pH 7.44 (7.35-7.45) Arterial Blood Partial Pressure CO2 41 mmHg (35-46) Arterial Blood Partial Pressure O2 214 mm/Hg (80-95) Arterial Blood HCO3 27 mmol/L (19-24) Arterial Blood Oxygen Saturation 99.6 % (90-95) Arterial Blood Base Excess 2.4 mEq/L (-9-1.8) Arterial Blood Gas Delivery 60% Mike Test POS (POS) Laboratory results per my review. Medications Administered Medications (Trade) Dose Ordered Sig/Dilip Route Start Time Stop Time Status Last Admin Dose Admin Miscellaneous (Rapid Sequence Induction Bag) 1 ea STK-MED ONCE N/A 06/23/17 21:37 06/23/17 21:38 DC 06/23/17 21:52 1 EA Propofol (Diprivan Iv Emulsion 100ml Vial) 1 dose STK-MED ONCE IV 06/23/17 21:56 06/23/17 21:57 DC 06/23/17 22:06 1 DOSE Sodium Chloride 1,000 ml @ 999 mls/hr Q1H1M STAT IV 06/23/17 21:58 06/23/17 22:58 DC 06/23/17 21:58 999 MLS/HR Sodium Chloride 1,000 ml @ 125 mls/hr Q8H STAT IV 06/23/17 23:43 06/24/17 06:52 DC 06/24/17 00:18 125 MLS/HR Morphine Sulfate/ Dextrose 250 ml @ 0 mls/hr Q0M PRN IV 06/24/17 00:45 06/24/17 06:52 DC 06/24/17 02:04 4 MLS/HR Procedure Endotracheal Intubation Indication GCS less than 8. The patient was on 100% oxygen via NRB prior to the procedure. Suction, airway equipment, RSI drugs, respiratory equipment, and appropriate personnel were prepared prior to the initiation of the procedure. A time out was taken. Induction was performed with Etomidate and succinylcholine. After observing the clinical benefit of the medications, the airway was easily visualized utilizing a 4 MAC. A 7.5 size ETT tube was placed atraumatically to 22 cm using standard technique. The cuff inflated without signs of malfunction. There were bilateral breath sounds, positive colormetric change, no gastric sounds, a good capnography waveform, and post procedure pulse oximetry was 100%. Post intubation sedation and paralysis was administered using Propofol. There were no complications. ECG Indication: altered mental status Rate (beats per minute): 99 Rhythm: atrial fibrillation Findings: no acute ischemic change, other (suspected lead reversal, baseline artifact) ED Course 2140: The patient was evaluated in room B1. A limited history and physical exam was performed. 2157: Ordered NSS 1000 ml @ 999 mls/hr IV. 5: I spoke to the patient's son, and his son and daughter state that they last spoke to the patient 2 days ago, and she was normal at that time. The patient's nephew found the patient on the floor unresponsive, and then he called 911 and then called the patient's son. The patient's only recent medication change was an adjustment to her Coumadin, and her INR was actually subtherapeutic this week. She has not had any recent illnesses. 2222: I reevaluated the patient and her chest x-ray looks good. Her ET tube is in good position, and she has good vital signs. 2310: I discussed the patient with Dr. Jah [place] [facility] [place] - he says that if the family want everything done then the patient should be transferred, but the overall prognosis is poor, and there is no utility in any additional medications. 2314: I talked to and updated the patient's family. The patient's family verbally expressed understanding and agreement of the treatment plan. The patient will be evaluated for further treatment. 2337: I discussed the patient with Tracy Quick PA-C - ICU - she says that she will come down to see the patient. 2340: I reviewed the patient's case with Dr. Samantha Fenton supervisor sewing room. He will evaluate the patient for further management. 0045: Ordered Morphine Sulfate/Dextrose 250 ml @ 0 mls/hr IV PRN. 0047: We are doing a terminal extubation. The ICU PA-C had an extensive family discussion, and the patient will be made comfort care, and the patient is being extubated. The ICU PA-C updated Dr. Singh. Medical Decision Differential diagnoses includes but is not limited to toxic, metabolic, infectious, traumatic, cardiac, neurologic, hematologic, psychiatric and inflammatory etiologies. Pt found to have ICH which likely caused fall and unresponsiveness. Doubt infectious etiology. Pt intubated initially due to GCS <8 and abnormal respirations despite still having spontaneous resp drive. Family did not want to pursue aggressive tx or surgery and so pt not flown to tertiary care facility. THey initially wanted pt admitted here and were making phone calls to additional family to further discuss. After several additional conversations by myself and then by the ICU PA, family decided to extubate pt. Pt admitted to medicine. Medication Reconcilliation Current Medication List: was personally reviewed by me Blood Pressure Screening Patient's blood pressure: Elevated blood pressure Consults Time Called: 2304 Consulting Physician: Dr. Jah JOSEPH neurology Returned Call: [phone] I discussed the patient with Dr. Jah JOSEPH neurology - he says that if the family want everything done then the patient should be transferred, but the overall prognosis is poor, and there is no utility in any additional medications. Additional Consults: Time Called: 2332 Consulted Physician: Tracy Quick PA-C - ICU Returned Call: [phone] Additional Comments: I discussed the patient with Tracy Quick ICU - she says that she will come down to see the patient. Time Called: 2336 Consulted Physician: Dr. Samantha Fenton supervisor sewing room Returned Call: [phone] Additional Comments: I reviewed the patient's case with Dr. Samantha Fenton supervisor sewing room. He will evaluate the patient for further management. Impression Primary Impression: Altered mental status Additional Impressions: Elevated brain natriuretic peptide (BNP) level Leukocytosis CVA (cerebral vascular accident) Critical Care I have personally spent 110 minutes of critical care time in the direct management of this patient. This includes bedside care, interpretation of diagnostic studies, and testing, discussion with consultants, patient, and family members, and other required patient management activities. This 110 minutes is in excess of all separately billable procedures. Scribe Attestation The scribe's documentation has been prepared under my direction and personally reviewed by me in its entirety. I confirm that the note above accurately reflects all work, treatment, procedures, and medical decision making performed by me. Departure Information Dispostion Being Evaluated By Hospitalist Referrals No Doctor, Assigned (PCP) Patient Instructions My [facility] Problem Qualifiers Primary Impression: Altered mental status Altered mental status type: unspecified Qualified Codes: R41.82 - Altered mental status, unspecified Additional Impressions: Leukocytosis Leukocytosis type: unspecified Qualified Codes: D72.829 - Elevated white blood cell count, unspecified CVA (cerebral vascular accident) CVA mechanism: unspecified Qualified Codes: I63.9 - Cerebral infarction, unspecified
[2017-06-23 22:13] LABS: BASO % 0.2 %; BASO ABS # 0.03 K/uL (0-0.2); COMPLETE YES; EOS % 0.1 %; IG% 0.5 %; LYMPH % 13.7 %; LYMPH ABS # 2.37 K/uL (1.2-3.4); MEAN CELL VOLUME 93.1 fL (80-100); MEAN CORPUSCULAR HEMOGLOBIN 30.1 pg (25-34); MEAN CORPUSCULAR HGB CONC 32.3 g/dl (32-36); MEAN PLATELET VOLUME 10.3 fL (7.4-10.4); MONO % 10.8 %; NEUT % 74.7 %; PLATELET COUNT 132 K/uL (130-400); RED BLOOD COUNT 5.05 M/uL (4.2-5.4); WHITE BLOOD COUNT 17.32 K/uL (4.8-10.8)
[2017-06-23 22:15] VITALS: TEMP 37.3
[2017-06-23 22:21] LABS: INR 1.8 (0.9-1.1); PARTIAL THROMBOPLASTIN RATIO 1.2; PROTHROMBIN TIME (PATIENT) 19.5 SECONDS (9.0-12.0)
--- NOTE | 2017-06-23 22:32 | DIAGNOSTIC IMAGING REPORT ---
CHEST ONE VIEW PORTABLE HISTORY: 81 years-old Female CODE BLUE acutely unresponsive patient COMPARISON: Chest radiograph 04/01/2017, CTA chest 03/03/2017 TECHNIQUE: Portable supine AP view of the chest FINDINGS: Cardiac silhouette is moderately enlarged. Endotracheal tube overlies the trachea terminating 2.1 cm superior to the shabbir. Enteric tube courses below the diaphragm with distal tip outside the [id number]. Proximal side-port is near the GE junction. There is no pneumothorax or large pleural effusion. Mild blunting of the right costophrenic angle may reflect trace pleural effusion. Chronic appearing reticular interstitial opacities are noted without lobar airspace consolidation or overt pulmonary edema. Bones of the chest are grossly intact. Degenerative changes involve the shoulders and spine. There is a linear 6.0 cm radiopaque device overlying the left shoulder. IMPRESSION: 1. Endotracheal tube overlies the midline terminating 2.1 cm superior to the shabbir. 2. Enteric tube courses below the diaphragm outside the [id number]. 3. Cardiomegaly with chronic reticular interstitial opacities. The above report was generated using voice recognition software. It may contain grammatical, syntax or spelling errors. Electronically signed by: Mannie Basilio M.D. 06/23/2017 10:31 PM Dictated Date/Time: 06/23/2017 10:28 PM
[2017-06-23 22:33] LABS: BUN/CREATININE RATIO 20.5 (10-20); CREATININE 1.1 mg/dl (0.60-1.20)
[2017-06-23 22:48] LABS: CKMB/CK RATIO 0.8 (0-3.0)
--- NOTE | 2017-06-23 22:52 | DIAGNOSTIC IMAGING REPORT ---
HEAD WITHOUT CONTRAST (CT) CLINICAL HISTORY: 81 years-old Female with unresponsive. Acute fall with unresponsiveness. TECHNIQUE: Multiple axial CT images of the head were obtained without contrast. A dose lowering technique was utilized adhering to the principles of ALARA. CT DOSE: 962.52 mGy.cm COMPARISON: None. FINDINGS: There is a large area of ill-defined decreased attenuation involving the left MCA distribution, primarily involving the left frontal and temporal lobes which measures up to 10.9 x 4.7 cm in AP and transverse dimension. There is gyral expansion with sulcal effacement within this distribution with cytotoxic edema and blurring of the gee-white interface. This results in 2 mm rightward midline shift. Areas of increased attenuation within the infarction distribution of the left temporal lobe are noted suspicious for petechial hemorrhage. Mild background cerebral atrophy. No calvarial fracture. Mastoid air cells and middle ear cavities are clear. Mucosal secretions of the nasopharynx, likely secondary to dilated status. Soft tissues are unremarkable. 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 Findings were discussed with Dr. Ernandez present on 06/23/2017 at 10:49 PM The above report was generated using voice recognition software. It may contain grammatical, syntax or spelling errors. Electronically signed by: Mannie Basilio M.D. 06/23/2017 10:50 PM Dictated Date/Time: 06/23/2017 10:39 PM
--- NOTE | 2017-06-23 22:55 | DIAGNOSTIC IMAGING REPORT ---
CERVICAL SPINE W/O CLINICAL HISTORY: 81 years-old Female with fall. Patient found unresponsive on the floor. COMPARISON: CT head of same day. TECHNIQUE: Multiple axial CT images of the cervical spine were obtained without contrast. A dose lowering technique was utilized adhering to the principles of ALARA. FINDINGS: Straightening of the normal cervical lordosis. No acute cervical spine fracture or subluxation. Multilevel advanced intervertebral disc space narrowing with uncovertebral spurring and facet arthropathy. Endotracheal tube is present within the trachea. Enteric tube of the esophagus. Moderate layering secretions are seen within the airway. Interlobular septal thickening of the lung apices noted. Heterogeneous appearing thyroid is noted. Mild atherosclerotic plaquing of the carotid bulbs. IMPRESSION: 1. No acute fracture or subluxation of the cervical spine. 2. Multilevel degenerative changes as above. 3. Endotracheal tube of the trachea and enteric tube of the esophagus noted. The above report was generated using voice recognition software. It may contain grammatical, syntax or spelling errors. Electronically signed by: Mannie Basilio M.D. 06/23/2017 10:54 PM Dictated Date/Time: 06/23/2017 10:51 PM
[2017-06-23 23:31] LABS: URINE APPEARANCE CLEAR (CLEAR); URINE BILIRUBIN NEG (NEG); URINE COLOR DK YELLOW; URINE EPITHELIAL CELL AUTO 20-30 /lpf (0-5); URINE NITRITE NEG (NEG); URINE SPECIFIC GRAVITY 1.018 (1.000-1.030); UROBILINOGEN NEG (NEG)
[2017-06-23 23:43] LABS: MANUAL MICROSCOPIC REQUIRED? NO; REVIEW REQ? NO
[2017-06-24 00:20] LABS: ARTERIAL BLD GAS O2 SATURATION 99.6 % (90-95); ARTERIAL BLOOD GAS BASE EXCESS 2.4 mEq/L (-9-1.8); ARTERIAL BLOOD GAS HCO3 27 mmol/L (19-24); ARTERIAL BLOOD GAS PO2 214 mm/Hg (80-95); ARTERIAL BLOOD GAS pH 7.44 (7.35-7.45)
[2017-06-24 00:21] LABS: ALLEN TEST POS (POS); O2 ADMINISTRATION 60%
[2017-06-24] MEDS ORDERED: MoRPHine SULF/NSS 250MG/250ML 250 ML IV PRN ×3 (00:45→08:00)
--- NOTE | 2017-06-24 01:21 | Critical Care Progress Note ---
Critical Care Progress Note Date of Service Jun 24, 2017. Critical Care Progress Note Critical care was called to see patient in the ED. Patient is a 81 year old female who was brought into hospital after being found unresponsive by family at home. Patient was bagged by EMS en route and intubated on arrival to ED, by Dr. Steiner, for airway protection. 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 Dr Tyson , neurologist was called and stated that patient would need to be transferred for management, but irrespective, the prognosis was poor. Critical care was called to see patient to discuss life prolonging management until distant family arrived. On examination, patient was intubated and not responsive. Neuro examination revealed symmetric pupils with paradoxical dilation of pupils with light. Unable to assess EOM. Unable to assess peripheral strength or sensation, but patient was wiggling toes and withdrawing from pain. Cardiac, respiratory and abdominal examinations were WNL. A significant amount of time was spent with patient's son and [id number] to discuss management options available and questions were answered to the family's satisfaction. In the end, the family decided to proceed with terminal extubation, with the understanding that "nature would take its course". They would like comfort care measures in place, including supplemental oxygen via nasal cannula and morphine drip to prevent respiratory distress. Respiratory came to assist with extubation and patient is ready to be transferred out of the ED Resident Tracking Resident Involvement: Resident Care Provided Care Provided: Adult Hospital Medicine
[2017-06-24 01:45] VITALS: Ht 152.4 cm; Wt 65.4 kg
[2017-06-24 02:04] VITALS: BP 139/63; PULSE 84
[2017-06-24 02:04] LABS: ISTAT CREATININE 0.9 mg/dl (0.6-1.3); ISTAT IONIZED CALCIUM 1.14 mmol/l (1.12-1.32)
--- NOTE | 2017-06-24 05:51 | History and Physical ---
History & Physical Date & Time of Service: Jun 24, 2017 at 05:28 Chief Complaint: Comfort Measures Only Status, Unresponsive Primary Care Physician: No Doctor, Assigned History of Present Illness Source: clinic records, hospital records 81 year old female with PMH of Afib, Tobacco use, HTN, CKD stage 3 was brought into hospital after being found unresponsive by family at home. History obtained from ER chart because pt was unresponsive and no family member at bedside. As Per ER physician, patient's family members returned home from work and found the patient on the floor unresponsive. Pt was intubated on arrival to ED for airway protection. 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 ER physician spoke to Neurology Dr. Tyson that advised for pt to be transferred to a tertiary center for management. Family did not want patient to be transferred. By the time I saw pt in the ER, the ICU team discussed with family , at that point family had decide comfort care measure only and proceed with terminal extubation. Past Medical/Surgical History Medical Problems: (1) Depression Status: Chronic Family History Patient reports no known family medical history. Social History Smoking Status: Former Smoker Marital Status: Housing status: lives with family Occupational Status: retired Immunizations History of Influenza Vaccine: N/A History of Tetanus Vaccine?: Unknown History of Pneumococcal: Yes History of Hepatitis B Vaccine: Unknown Multi-Drug Resistant Organisms History of MDRO: No Allergies Coded Allergies: No Known Allergies (Unverified , 03/03/17) Home Medications Scheduled Aspirin (Aspirin Ec), 81 MG PO DAILY Atorvastatin (Lipitor), 20 MG PO DAILY Digoxin (Digoxin), 0.125 MG PO DAILY@1600 Furosemide (Lasix), 20 MG PO 5XWK Metoprolol Tartrate (Lopressor) (Lopressor), 50 MG PO BID Sertraline (Zoloft), 25 MG PO DAILY Warfarin Sod (Jantoven), 1 MG PO DIRECTED Review of Systems Unable to obtain because pt is unresponsive Physical Exam Vital Signs Date Time Temp Pulse Resp B/P (MAP) Pulse Ox O2 Delivery O2 Flow Rate FiO2 06/24/17 02:04 84 12 139/63 94 06/24/17 01:45 Nasal Cannula 2.0 06/24/17 00:40 84 14 139/63 94 Nasal Cannula 2.0 06/23/17 23:45 75 15 128/60 100 Mechanical Ventilator 60 06/23/17 22:57 60 06/23/17 22:55 16 148/85 100 Mechanical Ventilator 06/23/17 22:44 100 06/23/17 22:15 37.3 06/23/17 22:00 99 Ambu-Bag 15.0 06/23/17 21:58 100 06/23/17 21:56 98 Non-Rebreather 06/23/17 21:55 86 06/23/17 21:46 94 24 155/74 98 Non-Rebreather 15.0 General Appearance: + pertinent finding (unresposive) Head: normocephalic Eyes: PERRL Neck: trachea midline Respiratory/Chest: no accessory muscle use Cardiovascular: no JVD Abdomen/GI: normal bowel sounds Neurologic/Psych: + pertinent finding (unresponsive, no thrachea deviation, unable to assess motor and sensation) Skin: warm/dry Diagnostics Laboratory Results Results Past 24 Hours Test 06/23/17 21:50 06/23/17 21:51 06/23/17 21:55 06/23/17 22:01 Range/Units White Blood Count 17.32 4.8-10.8 K/uL Red Blood Count 5.05 4.2-5.4 M/uL Hemoglobin 15.2 12.0-16.0 g/dL Hematocrit 47.0 37-47 % Mean Corpuscular Volume 93.1 80-100 fL Mean Corpuscular Hemoglobin 30.1 25-34 pg Mean Corpuscular Hemoglobin Concent 32.3 32-36 g/dl Platelet Count 132 130-400 K/uL Mean Platelet Volume 10.3 7.4-10.4 fL Neutrophils (%) (Auto) 74.7 % Lymphocytes (%) (Auto) 13.7 % Monocytes (%) (Auto) 10.8 % Eosinophils (%) (Auto) 0.1 % Basophils (%) (Auto) 0.2 % Neutrophils # (Auto) 12.95 1.4-6.5 K/uL Lymphocytes # (Auto) 2.37 1.2-3.4 K/uL Monocytes # (Auto) 1.87 0.11-0.59 K/uL Eosinophils # (Auto) 0.01 0-0.5 K/uL Basophils # (Auto) 0.03 0-0.2 K/uL RDW Standard Deviation 48.3 36.4-46.3 fL RDW Coefficient of Variation 14.4 11.5-14.5 % Immature Granulocyte % (Auto) 0.5 % Immature Granulocyte # (Auto) 0.09 0.00-0.02 K/uL Prothrombin Time 19.5 9.0-12.0 SECONDS Prothromb Time International Ratio 1.8 0.9-1.1 Activated Partial Thromboplast Time 29.9 21.0-31.0 SECONDS Partial Thromboplastin Ratio 1.2 Sodium Level 142 136-145 mmol/L Potassium Level 4.0 3.5-5.1 mmol/L Chloride Level 103 98-107 mmol/L Carbon Dioxide Level 29 21-32 mmol/L Anion Gap 9.0 19.0 16-25 mmol/L Blood Urea Nitrogen 23 7-18 mg/dl Creatinine 1.10 0.60-1.20 mg/dl Est Creatinine Clear Calc Drug Dose 38.8 ml/min Estimated GFR () 55.3 Estimated GFR (Non- 47.7 BUN/Creatinine Ratio 20.5 10-20 Bedside Glucose 144 70-90 mg/dl Random Glucose 136 70-99 mg/dl Calcium Level 9.0 8.5-10.1 mg/dl Total Bilirubin 1.2 0.2-1 mg/dl Direct Bilirubin 0.3 0-0.2 mg/dl Aspartate Amino Transf (AST/SGOT) 54 15-37 U/L Alanine Aminotransferase (ALT/SGPT) 29 12-78 U/L Alkaline Phosphatase 69 45-117 U/L Total Creatine Kinase 1739 26-192 U/L Creatine Kinase MB 13.3 0.5-3.6 ng/ml Creatine Kinase MB Ratio 0.8 0-3.0 Pro-B-Type Natriuretic Peptide 64240 0-1800 pg/ml Total Protein 7.2 6.4-8.2 gm/dl Albumin 3.4 3.4-5.0 gm/dl Digoxin Level 0.8 0.8-2.0 ng/ml Bedside Hemoglobin 16.0 12.0-16.0 g/dl Bedside Hematocrit 47 37-47 % Bedside Sodium 142 135-144 mEq/L Bedside Potassium 3.9 3.3-5.0 mEq/L Bedside Chloride 100 101-112 mEq/L Bedside Total CO2 28 24-31 mEq/l Bedside Blood Urea Nitrogen 24 7-18 mg/dl Bedside Creatinine 0.9 0.6-1.3 mg/dl Bedside Glucose (other) 139 70-99 mg/dl Bedside Ionized Calcium (Анна) 1.14 1.12-1.32 mmol/l Bedside Lactic Acid Venous 5.17 0.90-1.70 mmol/L Bedside Troponin I < 0.030 0-0.045 ng/ml Test 06/23/17 22:10 06/23/17 22:50 06/23/17 23:59 Range/Units Lactic Acid Level 3.4 0.4-2.0 mmol/L Urine Color DK YELLOW Urine Appearance CLEAR CLEAR Urine pH 6.0 4.5-7.5 Urine Specific [place] 1.018 1.000-1.030 Urine Protein 2+ NEG Urine Glucose (UA) NEG NEG Urine Ketones NEG NEG Urine Occult Blood 2+ NEG Urine Nitrite NEG NEG Urine Bilirubin NEG NEG Urine Urobilinogen NEG NEG Urine Leukocyte Esterase NEG NEG Urine WBC (Auto) 1-5 0-5 /hpf Urine RBC (Auto) 0-4 0-4 /hpf Urine Hyaline Casts (Auto) 1-5 0-5 /lpf Urine Epithelial Cells (Auto) 20-30 0-5 /lpf Urine Bacteria (Auto) NEG NEG Arterial Blood pH 7.44 7.35-7.45 Arterial Blood Partial Pressure CO2 41 35-46 mmHg Arterial Blood Partial Pressure O2 214 80-95 mm/Hg Arterial Blood HCO3 27 19-24 mmol/L Arterial Blood Oxygen Saturation 99.6 90-95 % Arterial Blood Base Excess 2.4 -9-1.8 mEq/L Arterial Blood Gas Delivery 60% Mike Test POS POS Diagnostic Radiology HEAD WITHOUT CONTRAST (CT) CLINICAL HISTORY: 81 years-old Female with unresponsive. Acute fall with unresponsiveness. TECHNIQUE: Multiple axial CT images of the head were obtained without contrast. A dose lowering technique was utilized adhering to the principles of ALARA. CT DOSE: 962.52 mGy.cm COMPARISON: None. FINDINGS: There is a large area of ill-defined decreased attenuation involving the left MCA distribution, primarily involving the left frontal and temporal lobes which measures up to 10.9 x 4.7 cm in AP and transverse dimension. There is gyral expansion with sulcal effacement within this distribution with cytotoxic edema and blurring of the gee-white interface. This results in 2 mm rightward midline shift. Areas of increased attenuation within the infarction distribution of the left temporal lobe are noted suspicious for petechial hemorrhage. Mild background cerebral atrophy. No calvarial fracture. Mastoid air cells and middle ear cavities are clear. Mucosal secretions of the nasopharynx, likely secondary to dilated status. Soft tissues are unremarkable. 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 Findings were discussed with Dr. Ernandez present on 06/23/2017 at 10:49 PM The above report was generated using voice recognition software. It may contain grammatical, syntax or spelling errors. Electronically signed by: Mannie Basilio M.D. 06/23/2017 10:50 PM Dictated Date/Time: 06/23/2017 10:39 PM [~ rep ct add3]] CERVICAL SPINE W/O CLINICAL HISTORY: 81 years-old Female with fall. Patient found unresponsive on the floor. COMPARISON: CT head of same day. TECHNIQUE: Multiple axial CT images of the cervical spine were obtained without contrast. A dose lowering technique was utilized adhering to the principles of ALARA. FINDINGS: Straightening of the normal cervical lordosis. No acute cervical spine fracture or subluxation. Multilevel advanced intervertebral disc space narrowing with uncovertebral spurring and facet arthropathy. Endotracheal tube is present within the trachea. Enteric tube of the esophagus. Moderate layering secretions are seen within the airway. Interlobular septal thickening of the lung apices noted. Heterogeneous appearing thyroid is noted. Mild atherosclerotic plaquing of the carotid bulbs. IMPRESSION: 1. No acute fracture or subluxation of the cervical spine. 2. Multilevel degenerative changes as above. 3. Endotracheal tube of the trachea and enteric tube of the esophagus noted. The above report was generated using voice recognition software. It may contain grammatical, syntax or spelling errors. Electronically signed by: Mannie Basilio M.D. 06/23/2017 10:54 PM Dictated Date/Time: 06/23/2017 10:51 PM CHEST ONE VIEW PORTABLE HISTORY: 81 years-old Female CODE BLUE acutely unresponsive patient COMPARISON: Chest radiograph 04/01/2017, CTA chest 03/03/2017 TECHNIQUE: Portable supine AP view of the chest FINDINGS: Cardiac silhouette is moderately enlarged. Endotracheal tube overlies the trachea terminating 2.1 cm superior to the shabbir. Enteric tube courses below the diaphragm with distal tip outside the [id number]. Proximal side-port is near the GE junction. There is no pneumothorax or large pleural effusion. Mild blunting of the right costophrenic angle may reflect trace pleural effusion. Chronic appearing reticular interstitial opacities are noted without lobar airspace consolidation or overt pulmonary edema. Bones of the chest are grossly intact. Degenerative changes involve the shoulders and spine. There is a linear 6.0 cm radiopaque device overlying the left shoulder. IMPRESSION: 1. Endotracheal tube overlies the midline terminating 2.1 cm superior to the shabbir. 2. Enteric tube courses below the diaphragm outside the [id number]. 3. Cardiomegaly with chronic reticular interstitial opacities. The above report was generated using voice recognition software. It may contain grammatical, syntax or spelling errors. Electronically signed by: Mannie Basilio M.D. 06/23/2017 10:31 PM Dictated Date/Time: 06/23/2017 10:28 PM Impression Assessment and Plan Unresponsive Large acute left MCA infarction Poor prognosis Terminal extubated family made comfort care measures only Continue morphine drip, oxygen supplement Ativan PRN for agitation CODE STATUS DNR/ Comfort care measures only Level of Care Med/Surg Advanced Directives Existing Living Will: No Existing Power of Road Repairer: No Resuscitation Status DO NOT RESUSCITATE VTE Prophylaxis VTE Risk Assessment Done? Y/N: Yes Risk Level: Moderate
[2017-06-24] MEDS ORDERED: LORAZEPAM 2 MG/ML 1 ML VIAL IV PRN (06:00)
[2017-06-24] MEDS ORDERED: LORAZEPAM INJ 1 MG in SYRINGE 0.5 ML IV PRN (06:15)
[2017-06-24] MEDS ORDERED: NURSING VERBAL MED ORDER SCH (06:15)
[2017-06-24] MEDS ORDERED: ATROPINE SULFATE 1% OP SOLN 5 ML BTL PO PRN (08:00)
--- NOTE | 2017-06-24 17:40 | Progress Note ---
Progress Note Date of Service Jun 24, 2017. Progress Note Patient assessed around 08:00. She was unresponsive and there were no signs of distress. Family given update by phone this morning and in person this afternoon. Continue comfort measures. .
--- NOTE | 2017-06-25 08:23 | Progress Note ---
Medicine Progress Note Date & Time of Visit: Jun 25, 2017 at 07:55 . Subjective Minimally responsive. No signs of discomfort. . Objective Physical Exam: General- no apparent distress Lungs- few scattered rhonchi Heart- irregular, tachycardic Abdomen- soft, nontender Extremities- trace pretibial edema; waffle boots applied Neuro- minimally responsive, opens eyes to name, pupils 2 mm, reactive, eyes deviated to the left . Assessment & Plan STROKE Found unresponsive at home. Last known well approximately 24 hours prior to presentation. CT demonstrated large acute left MCA infarct with associated cytotoxic edema, petechial hemorrhage, subfalcine herniation, rightward midline shift. Probable embolic stroke secondary to underlying atrial fibrillation. Not candidate for TPA due to time of presentation, petechial hemorrhages, warfarin therapy. Prognosis for a satisfactory neurologic recovery extremely poor. Family opted for comfort measures only. Patient is obtunded, minimally responsive appears to be comfortable. Continue palliative measures. ATRIAL FIBRILLATION Chronic atrial fibrillation, usually managed with digoxin, metoprolol, warfarin. Warfarin was held because of large MCA stroke with petechial hemorrhages. Will hold other medications due to comfort measures only. ELEVATED CPK Total CPK 1739 and MB of 15. Troponin was normal. Suspect skeletal muscle injury secondary to fall rather than acute coronary syndrome. HYPERTENSION Hold metoprolol due to comfort measures only. VTE PROPHYLAXIS Not indicated due to comfort measures only. DISPOSITION Patient is terminally ill and is expected to pass away during this hospital stay. Consider referral to hospice depending on course over the next 24 hours. . Current Inpatient Medications: Current Inpatient Medications Medications (Trade) Dose Ordered Sig/Dilip Route Start Time Stop Time Status Last Admin Dose Admin Lorazepam (Ativan Inj) 1 mg Q2R PRN IV 06/24/17 06:00 07/24/17 05:59 Lorazepam 1 mg/ Syringe 1 ml @ 1 mls/min Q2H PRN IV 06/24/17 06:15 07/24/17 06:14 Morphine Sulfate/ Dextrose 250 ml @ 1 mls/hr Q24H PRN IV 06/24/17 08:00 07/08/17 07:59 06/24/17 09:35 1 MLS/HR Morphine Sulfate (MoRPHine SULFATE INJ) 1 mg Q1H PRN IV 06/24/17 08:00 07/08/17 07:59 Atropine Sulfate (Atropine Sulfate 1% Oph Soln) 4 drops Q3H PRN PO 06/24/17 08:00 07/24/17 07:59
[2017-06-26] VITALS: O2SAT 94
[2017-06-26] MEDS: MoRPHine SULFATE 2 MG/ML CARP IV PRN ×3 (07:06→15:45)
--- NOTE | 2017-06-26 10:31 | Progress Note ---
Medicine Progress Note Date & Time of Visit: Jun 26, 2017 at 10:00 . Subjective Obtunded. No signs of discomfort. . Objective Physical Exam: General- no apparent distress Lungs- few scattered rhonchi, respirations unlabored Cardiovascular- irregular, tachycardic; strong radial pulse Abdomen- soft, nontender - Jernigan cath with good urine output Extremities- trace pretibial edema; waffle boots applied Neuro- unresponsive, pupils 2 mm, eyes deviated to the left . Assessment & Plan STROKE Found unresponsive at home. Last known well approximately 24 hours prior to presentation. CT demonstrated massive acute left MCA infarct with associated cytotoxic edema, petechial hemorrhage, subfalcine herniation, rightward midline shift. Probable embolic stroke secondary to underlying atrial fibrillation. Not candidate for TPA due to time of presentation, petechial hemorrhages, warfarin therapy. Prognosis for a satisfactory neurologic recovery extremely poor. Family opted for comfort measures only. Patient is obtunded and appears to be comfortable. Continue palliative measures. ATRIAL FIBRILLATION Chronic atrial fibrillation, usually managed with digoxin, metoprolol, warfarin. Warfarin was held because of large MCA stroke with petechial hemorrhages. Will hold other medications due to comfort measures only. ELEVATED CPK Total CPK 1739 and MB of 15. Troponin was normal. Suspect skeletal muscle injury secondary to fall rather than acute coronary syndrome. HYPERTENSION Hold metoprolol due to comfort measures only. VTE PROPHYLAXIS Not indicated due to comfort measures only. DISPOSITION Patient is terminally ill and is expected to pass away during this hospital stay. Spoke with [id number] Davida this morning and gave her update. Family may benefit from hospice services during the dying process and for subsequent grief support. Referral to hospice requested. . Current Inpatient Medications: Current Inpatient Medications Medications (Trade) Dose Ordered Sig/Dilip Route Start Time Stop Time Status Last Admin Dose Admin Lorazepam (Ativan Inj) 1 mg Q2R PRN IV 06/24/17 06:00 07/24/17 05:59 Lorazepam 1 mg/ Syringe 1 ml @ 1 mls/min Q2H PRN IV 06/24/17 06:15 07/24/17 06:14 Morphine Sulfate/ Dextrose 250 ml @ 1 mls/hr Q24H PRN IV 06/24/17 08:00 07/08/17 07:59 06/24/17 09:35 1 MLS/HR Morphine Sulfate (MoRPHine SULFATE INJ) 1 mg Q1H PRN IV 06/24/17 08:00 07/08/17 07:59 06/26/17 07:06 1 MG Atropine Sulfate (Atropine Sulfate 1% Oph Soln) 4 drops Q3H PRN PO 06/24/17 08:00 07/24/17 07:59 06/26/17 07:10 4 DROPS
--- NOTE | 2017-06-27 08:10 | Progress Note ---
Medicine Progress Note Date & Time of Visit: Jun 27, 2017 at 08:07 . Subjective Obtunded. No signs of discomfort / distress. . Objective Physical Exam: General- no apparent distress Lungs- scattered rhonchi; respirations shallow, unlabored Cardiovascular- irregular, tachycardic Abdomen- soft, nontender - Jernigan cath Extremities- trace pretibial edema Neuro- obtunded . Assessment & Plan STROKE Found unresponsive at home. Last known well approximately 24 hours prior to presentation. CT demonstrated massive acute left MCA infarct with associated cytotoxic edema, petechial hemorrhage, subfalcine herniation, rightward midline shift. Probable embolic stroke secondary to underlying atrial fibrillation. Not candidate for TPA due to time of presentation, petechial hemorrhages, warfarin therapy. Prognosis for a satisfactory neurologic recovery extremely poor. Family opted for comfort measures only. Patient appears to be comfortable. Continue palliative measures. ATRIAL FIBRILLATION Chronic atrial fibrillation, usually managed with digoxin, metoprolol, warfarin. Warfarin was held because of large MCA stroke with petechial hemorrhages. Will hold other medications due to comfort measures only. ELEVATED CPK Total CPK 1739 and MB of 15. Troponin was normal. Suspect skeletal muscle injury secondary to fall rather than acute coronary syndrome. HYPERTENSION Hold metoprolol due to comfort measures only. VTE PROPHYLAXIS Not indicated due to comfort measures only. DISPOSITION Patient is terminally ill and is expected to pass away during this hospital stay. Family may benefit from hospice services during the dying process and for subsequent grief support. Referral to hospice requested. . Current Inpatient Medications: Current Inpatient Medications Medications (Trade) Dose Ordered Sig/Dilip Route Start Time Stop Time Status Last Admin Dose Admin Lorazepam (Ativan Inj) 1 mg Q2R PRN IV 06/24/17 06:00 07/24/17 05:59 Lorazepam 1 mg/ Syringe 1 ml @ 1 mls/min Q2H PRN IV 06/24/17 06:15 07/24/17 06:14 Morphine Sulfate/ Dextrose 250 ml @ 1 mls/hr Q24H PRN IV 06/24/17 08:00 07/08/17 07:59 06/24/17 09:35 1 MLS/HR Morphine Sulfate (MoRPHine SULFATE INJ) 1 mg Q1H PRN IV 06/24/17 08:00 07/08/17 07:59 06/26/17 15:45 1 MG Atropine Sulfate (Atropine Sulfate 1% Oph Soln) 4 drops Q3H PRN PO 06/24/17 08:00 07/24/17 07:59 06/26/17 07:10 4 DROPS
[2017-06-27] MEDS: MoRPHine SULFATE 2 MG/ML CARP IV PRN ×2 (10:34→11:38)
--- NOTE | 2017-06-27 13:44 | Discharge Instructions ---
Discharge Instructions Date of Service Jun 27, 2017. Admission Reason for Admission: stroke . Discharge Discharge Diagnosis / Problem: stroke Discharge Goals Goal(s): Decrease discomfort Activity Recommendations Activity Limitations: as noted below bedrest . . Instructions / Follow-Up Instructions / Follow-Up N/A. Transfer in inpatient hospice. . Current Hospital Diet Patient's current hospital diet: nothing by mouth Discharge Diet Recommended Diet: N/A (NPO) Pending Studies Studies pending at discharge: no Medical Emergencies N/A. Transfer in inpatient hospice. . Non-Emergent Contact Non-Emergency issues call your: Hospital Doctor . . "Provider Documentation" section prepared by Amarjit June. . Stroke Core Measures Reason no t-PA for Stroke: Contraindicated (massive infarct with petechial hemorrhages) Reason no antithrom by day 2: Contraindicated (massive infarct with petechial hemorrhages) Reason no antithrom at D/C: Contraindicated (massive infarct with petechial hemorrhages) Reason no statin at D/C: Treatment not indicated (comfort measures) Reason no anticoag w/a fib: Contraindicated (massive infarct with petechial hemorrhage) VTE Core Measure Inpt VTE Proph given/why not?: Treatment not indicated (comfort measures)
--- NOTE | 2017-06-30 16:25 | Discharge Summary ---
Discharge Summary Date of Service Jun 30, 2017. Discharge Summary Admission Date: Jun 24, 2017 at 01:10 Discharge Date: Jun 27, 2017 Principal Diagnosis: massive acute left MCA infarct with associated cytotoxic edema, petechial hemorrhage, subfalcine herniation, rightward midline shift . Secondary Diagnoses/Problems: Chronic Medical Problems: Atrial fibrillation Chronic CHF, systolic Chronic kidney disease stage III Coronary artery disease COPD Depression Dyslipidemia Hypertension . Procedures: CT head endotracheal intubation mechanical ventilation comfort measures only palliative care . Consultations: [facility] Hospice . Admission Information HPI (per Admitting provider): 81 year old female with PMH of Afib, Tobacco use, HTN, CKD stage 3 was brought into hospital after being found unresponsive by family at home. History obtained from ER chart because pt was unresponsive and no family member at bedside. As Per ER physician, patient's family members returned home from work and found the patient on the floor unresponsive. Pt was intubated on arrival to ED for airway protection. 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 ER physician spoke to Neurology Dr. Tyson that advised for pt to be transferred to a tertiary center for management. Family did not want patient to be transferred. By the time I saw pt in the ER, the ICU team discussed with family , at that point family had decide comfort care measure only and proceed with terminal extubation. . Physical Exam (per Admitting): General Appearance: + pertinent finding (unresposive) Head: normocephalic Eyes: PERRL Neck: trachea midline Respiratory/Chest: no accessory muscle use Cardiovascular: no JVD Abdomen/GI: normal bowel sounds Neurologic/Psych: + pertinent finding (unresponsive, no thrachea deviation, unable to assess motor and sensation) Skin: warm/dry Hospital Course STROKE Found unresponsive at home. Last known well approximately 24 hours prior to presentation. CT demonstrated massive acute left MCA infarct with associated cytotoxic edema, petechial hemorrhage, subfalcine herniation, rightward midline shift. Probable embolic stroke secondary to underlying atrial fibrillation. Not candidate for TPA due to time of presentation, petechial hemorrhages, warfarin therapy. Prognosis for a satisfactory neurologic recovery extremely poor. Family opted for comfort measures only based on patient's previously expressed philosophy and priorities. Received palliative measures. ATRIAL FIBRILLATION Chronic atrial fibrillation, usually managed with digoxin, metoprolol, warfarin. Warfarin was held because of large MCA stroke with petechial hemorrhages. Held other medications due to comfort measures only. ELEVATED CPK Total CPK 1739 and MB of 15. Troponin was normal. Suspect skeletal muscle injury secondary to fall rather than acute coronary syndrome. HYPERTENSION Metoprolol held due to comfort measures only. VTE PROPHYLAXIS Not indicated due to comfort measures only. DISPOSITION Patient is terminally ill and is expected to pass away during this hospital stay. Family offered hospice services during the dying process and for subsequent grief support. Referral to hospice requested and patient enrolled. She was transferred to inpatient hospice status for ongoing palliative end-of- life care. . Discharge Instructions N/A .
== END 2017-06-27 13:57 | disposition hospice, inpatient (51) | DRG 64 ==
LOC: EDBD 21:39 → C.EDB 21:43 → C.4E 06-24 01:10 → ENRESERV 06-24 01:17
PROVIDERS: ADMIT Internal Medicine; ATTEND Hospitalist
PROC: 5A1935Z Respiratory Ventilation, Less than 24 Consecutive Hours (ICD-10-PCS; principal; 2017-06-23)
PROC: 0BH17EZ Insertion of Endotracheal Airway into Trachea, Via Natural or Artificial Opening (ICD-10-PCS; principal; 2017-06-23)
DX: I63.412 Cerebral infarction due to embolism of left middle cerebral artery (principal); G93.6 Cerebral edema; G93.5 Compression of brain; I61.9 Nontraumatic intracerebral hemorrhage, unspecified; E87.2 Acidosis; R41.82 Altered mental status, unspecified; R79.1 Abnormal coagulation profile; R74.8 Abnormal levels of other serum enzymes; D72.829 Elevated white blood cell count, unspecified; I48.2 Chronic atrial fibrillation; I12.9 Hypertensive chronic kidney disease with stage 1 through stage 4 chronic kidney disease, or unspecified chronic kidney disease; N18.3 Chronic kidney disease, stage 3 (moderate); Z66 Do not resuscitate; Z51.5 Encounter for palliative care; Z72.0 Tobacco use; Z79.82 Long term (current) use of aspirin; Z79.01 Long term (current) use of anticoagulants; Z79.899 Other long term (current) drug therapy

== ENCOUNTER 2017-06-27 13:57 | Inpatient (IN) | payer OTHER ==
[~2017-06-27] VITALS: Ht 152.4 cm; Wt 65.4 kg
[~2017-06-27 13:57] MED LIST changes: +ASPI81TA28 PO; +ATOR-22 PO; -CMD5 PO; +FURO-85 PO; -LISI-729 PO; -LSX20 PO; -RAPID SEQUENCE INDUCTION BAG ONE; +SERT25TA PO; +WARF1TAB6 PO
[2017-06-27 14:12] VITALS: Ht 152.4 cm; Wt 65.4 kg
--- NOTE | 2017-06-27 14:23 | History and Physical ---
History & Physical Date & Time of Service: Jun 27, 2017 at 14:23 Chief Complaint: stroke . Primary Care Physician: No Doctor, Assigned History of Present Illness Source: family, clinic records, hospital records 81 YO female followed by Dr. Mary. History of atrial fibrillation and other problems as noted. Found unresponsive at home on 06/23/17. Last known well approximately 24 hours prior to presentation. CT demonstrated massive acute left MCA infarct with associated cytotoxic edema, petechial hemorrhage, subfalcine herniation, rightward midline shift. Probable embolic stroke secondary to underlying atrial fibrillation. Not candidate for TPA due to time of presentation, petechial hemorrhages, warfarin therapy. Prognosis for a satisfactory neurologic recovery extremely poor. Family opted for comfort measures only. Patient received palliative care. Hospice referral made. Arrangements made for transfer to inhospital hospice care. . Past Medical/Surgical History Medical Problems: chronic atrial fibrillation massive left MCA stroke 06/23/17 . Social History Smoking Status: Former Smoker Marital Status: Occupational Status: retired Immunizations History of Influenza Vaccine: N/A History of Tetanus Vaccine?: Unknown History of Pneumococcal: Yes History of Hepatitis B Vaccine: Unknown Multi-Drug Resistant Organisms History of MDRO: No Allergies Coded Allergies: No Known Allergies (Unverified , 03/03/17) Review of Systems Unable to obtain due to patient's condition. . Physical Exam General- obtunded, no apparent distress HEENT- anicteric, eyes deviated to left Lungs- scattered rhonchi; respirations shallow, unlabored Cardiovascular- irregular, tachycardic Abdomen- soft, nontender - [place] cath Extremities- trace pretibial edema Neuro- obtunded . Impression Assessment and Plan MASSIVE STROKE CT demonstrated massive acute left MCA infarct with associated cytotoxic edema, petechial hemorrhage, subfalcine herniation, rightward midline shift. Probable embolic stroke secondary to underlying atrial fibrillation. Not candidate for TPA due to time of presentation, petechial hemorrhages, warfarin therapy. Not candidate for usual stroke care due to comfort measures only. Prognosis for a satisfactory neurologic recovery extremely poor. Family opted for comfort measures only. Not candidate for usual stroke care due to comfort measures only. Patient appears to be comfortable. Transitioned to inhospital hospice are. Continue palliative care. VTE PROPHYLAXIS Not indicated due to terminal illness / comfort measures only. DISPOSITION Patient is terminally ill and expected to during this hospital stay. . VTE Prophylaxis VTE Risk Assessment Done? Y/N: Yes Risk Level: High Given or contraindicated: Treatment not indicated
[2017-06-27] MEDS ORDERED: ONDANSETRON INJ 8 MG in DEXTROSE 5% 50ML 50 ML IV PRN (14:30)
[2017-06-27] MEDS ORDERED: ATROPINE SULFATE 1% OP SOLN 5 ML BTL PO PRN (14:30)
[2017-06-27] MEDS ORDERED: LORAZEPAM INJ 1 MG in SYRINGE 0.5 ML IV PRN (14:30)
[2017-06-27] MEDS ORDERED: MoRPHine SULFATE 2 MG/ML CARP IV PRN ×2 (14:30)
[2017-06-27] MEDS ORDERED: SCOPOLAMINE 1.5 MG TDSY TD SCH (14:30)
[2017-06-27] MEDS ORDERED: SODIUM CHLORIDE 0.9% 1000ML 1,000 ML IV SCH (15:00)
[2017-06-27] MEDS ORDERED: MoRPHine SULF/NSS 250MG/250ML 250 ML IV PRN (15:15)
[2017-06-27] MEDS ORDERED: CHECK SCOPOLAMINE PATCH PLACEMENT SCH (16:00)
--- NOTE | 2017-06-27 21:16 | Progress Note ---
Progress Note Date of Service Jun 27, 2017. Progress Note PRONOUNCEMENT Patient ceased to breathe at 20:40. Pupils midposition / fixed. No heart sounds or respirations. Cause of : massive stroke Family notified and offered condolences. .
[2017-06-27] MEDS ORDERED: SUCCINYLCHOLINE CHLORIDE 20 MG/ML 10 ML VIAL IV ONE (22:20)
[2017-06-27] MEDS ORDERED: ETOMIDATE 2 MG/ML 20 ML VIAL IV ONE (22:20)
== END 2017-06-27 22:21 | disposition expired | DRG 66 ==
LOC: C.4E 13:57
PROVIDERS: ADMIT Hospitalist; ATTEND Hospitalist
DX: I63.8 Other cerebral infarction (principal); I48.2 Chronic atrial fibrillation; Z51.5 Encounter for palliative care; Z87.891 Personal history of nicotine dependence